=== PATIENT | male | born 1950 | race Caucasian/White ===

== ENCOUNTER → 2020-01-14 | Outpatient (CLI) | payer MEDICARE ==
[2019-03-04 15:00] VITALS: BP 150/72
[~2020-01-14] MED LIST: AMLO5TAB10 PO; ATOR10TA60 PO; CLOP75TA PO; CONTRAST GIVEN. MC PRN; IOHEXOL 300 MG/ML 100ML VIAL. IV ONE; LOSA-73 PO; Nicotine 21MG TD
[2020-01-14 13:00] LABS: CALCIUM 8.8 mg/dL (8.5-10.1); GFR 74.3; POTASSIUM 5.1 mmol/L (3.5-5.1)
--- NOTE | 2020-01-14 16:48 | RAD ---
EXAM: 1. CTA HEAD WITH AND WITHOUT CONTRAST. 2. CTA NECK WITH AND WITHOUT CONTRAST. HISTORY: Carotid and subclavian stenosis. TECHNIQUE: Computed tomographic angiography of the head and neck was performed before and after the intravenous administration of 75 mL Omnipaque 300. Three-dimensional reconstructions were also performed. One or more of the following individualized dose reduction techniques were utilized for this examination: 1. Automated exposure control. 2. Adjustment of the mA and/or kV according to patient size. 3. Use of iterative reconstruction technique. COMPARISON: 03/03/2019. FINDINGS: Angiographic findings: The aortic arch has a typical branching pattern. There are moderate atherosclerotic calcifications. Stenosis of the left subclavian artery just proximal to the left vertebral origin appears slightly less severe and is approximately 60%. There is a 50% stenosis at the origin of the left common carotid artery. There is <50% stenosis at the origin of the brachiocephalic artery. More distally, there is moderate calcified and uncalcified plaquing at both carotid bulbs resulting in <50% stenosis bilaterally. This extends to a 50% stenosis of the left proximal cervical internal carotid artery. There is no cervical internal carotid artery stenosis more distally. The external carotid systems are patent. There is a moderate stenosis at the origin of the left vertebral artery which is dominant. There is multifocal mild stenosis of the right vertebral artery which is relatively small, and diminutive beyond the origin of the posterior inferior cerebellar artery. There is a variant early origin of the left posterior inferior cerebellar artery lateral to the foramen magnum. A 1 mm infundibulum is noted along the posterior aspect of the right vertebral artery at the foramen magnum. The basilar artery is patent. There is a persistent origin of the left posterior cerebral artery. There are moderate stenoses along both P2 segments. The right posterior communicating artery is visualized. Both superior cerebellar arteries are visualized with multifocal stenoses. There are moderate atherosclerotic calcifications along both cavernous internal carotid arteries without clear stenosis. There are limitations from venous contamination in the cavernous sinuses, but a small aneurysm is suspected along the lateral aspect of the left cavernous sinus internal carotid artery measuring 2 mm. There is no clear interval change. The middle cerebral arteries are patent. The anterior cerebral arteries are patent. The anterior communicating artery is visualized. Nonangiographic findings: There is no intracranial hemorrhage. There is a chronic infarct superiorly in the left cerebellar hemisphere. There is mild chronic microangiopathic white matter change elsewhere. The ventricles are normal in size and position. The paranasal sinuses appear clear. There are changes of bilateral cataract surgery. The temporal bones are unremarkable. Bone windows reveal no suspicious lesions. The lung apices demonstrate mild to moderate centrilobular and paraseptal emphysema. The parotid glands and submandibular glands are unremarkable. The thyroid gland demonstrates no suspicious lesions. There are no laryngeal or pharyngeal masses. There are no pathologically enlarged lymph nodes. IMPRESSION: 1. The left subclavian stenosis appears slightly decreased in severity, now measuring approximately 60%. 2. 50% stenosis at the origin of the left common carotid artery. 3. 50% stenosis at the origin of the left cervical internal carotid artery. 4. Moderate stenosis at the origin of the dominant left vertebral artery. The right vertebral artery is relatively small and diminutive beyond the origin of the posterior inferior cerebellar artery. 5. 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 Attention on further follow-up. 6. Moderate stenoses of both P2 segments and superior cerebellar arteries. Chronic left superior cerebellar infarct. 7. Moderate mild to moderate centrilobular and paraseptal emphysema in the apices. PQRS Compliance Statement - Stenosis calculations for CT, MR and conventional angiography are based upon measurement of the distal ICA diameter in accordance with the NASCET methodology. Stenosis calculations for carotid ultrasound studies are derived from validated velocity criteria which are known to correlate with the NASCET methodology. Electronically signed by: Camilla Dial MD (01/14/2020 4:45 PM) [id number]
== END | disposition home or self-care (01) ==
LOC: CT 11:19
PROVIDERS: ATTEND Internal Medicine Cardiovascular Disease
DX: I65.22 Occlusion and stenosis of left carotid artery (principal); I70.1 Atherosclerosis of renal artery; I72.0 Aneurysm of carotid artery; I66.3 Occlusion and stenosis of cerebellar arteries; J43.2 Centrilobular emphysema; I63.89 Other cerebral infarction; I70.0 Atherosclerosis of aorta; I70.8 Atherosclerosis of other arteries; I65.01 Occlusion and stenosis of right vertebral artery
CPT/HCPCS: 36415; 70496; 70498; 80048; Q9967

== ENCOUNTER 2020-12-07 11:58 | Inpatient (IN) | payer MEDICARE ==
[~2020-12-07] VITALS: Ht 175.3 cm; Wt 62.1 kg
[~2020-12-07 11:58] MED LIST changes: +AMLO-186 PO; -AMLO5TAB10 PO; -CONTRAST GIVEN. MC PRN; -IOHEXOL 300 MG/ML 100ML VIAL. IV ONE
[2020-12-07] MEDS ORDERED: MORPHINE SULFATE 4 MG/ML VIAL. IV/SQ PRN (12:30)
[2020-12-07] MEDS ORDERED: ASPIRIN 325 MG TABLET PO ONE (12:30)
--- NOTE | 2020-12-07 12:58 | RAD ---
AP chest. HISTORY: Chest pain short of breath AP view was taken of the chest. There is a rounded density on the right which is concerning for a mas s although a rounded infiltrate is possible. There is a left perihilar density also concerning for a mass. CT recommended. There are infiltrates or atelectasis in the left upper lobe which could be post obstructive. There is mild elevation of left diaphragm. IMPRESSION: 1. Left hilar mass with left upper lobe atelectasis or infiltrate. 2. Rounded density right lung possible mass. CT recommended. Electronically signed by: Nick Walls MD (12/07/2020 12:55 PM) [id number]
--- NOTE | 2020-12-07 13:22 | PHYS DOC ---
Past Medical History Past Medical History: Alcoholism, Hypertension, Other Additional Past Medical Histor: CIRRHOSIS,"CLOGGED ARTERIES" (RADHA JASSO POST ACUTE CARE NURSE) Past Surgical History: Other Additional Past Surgical Histo: L HAND (RADHA JASSO [place] POST ACUTE CARE NURSE) Smoking Status: Current Every Day Smoker Alcohol Use: Occasionally Drug Use: None (RADHA JASSO POST ACUTE CARE NURSE) General Adult EDM: Chief Complaint: CHEST PAIN HPI: HPI: Patient is a 70 year old male with history of alcoholism liver cirrhosis, hy pertension, current smoker, who presents today complaining of shortness of breath and chest pain that began 2 weeks ago after receiving his second Covid vaccine, last covid vaccine was 10/31/2020. Patient is a very vague about his symptoms. He is unable to rate or describe his chest pain. He states his concerning symptom is the shortness of breath. Denies any fever, coughing or nasal congestion. He states he thought he should be checked out to make sure that the Covid vaccine is not the source of his symptoms. (RADHA JASSO POST ACUTE CARE NURSE) Review of Systems: Review of Systems: Constitutional: Denies fever or chills. [] Eyes: Denies change in visual acuity. [] HENT: Denies nasal congestion or sore throat. [] Respiratory: Reports shortness of breath, denies cough Cardiovascular: Reports chest pain GI: Denies abdominal pain, nausea, vomiting, bloody stools or diarrhea. [] : Denies dysuria. [] Musculoskeletal: Denies back pain or joint pain. [] Integument: Denies rash. [] Neurologic: Denies headache, focal weakness or sensory changes. [] Psychiatric: Denies depression or anxiety. [] (RADHA JASSO [place] POST ACUTE CARE NURSE) Heart Score: C/O Chest Pain: Yes HEART Score for Chest Pain: HEART Score for Chest Pain Response (Comments) Value History Slighlty/Non-Suspicious 0 ECG Normal 0 Age > 65 2 Risk Factors 1 or 2 Risk Factors 1 Troponin < Normal Limit 0 Total 3 Risk Factors: Risk Factors: DM, Current or recent (<one month) smoker, HTN, HLP, family history of CAD, obesity. Risk Scores: Score 0 - 3: 2.5% MACE over next 6 weeks - Discharge Home Score 4 - 6: 20.3% MACE over next 6 weeks - Admit for Clinical Observation Score 7 - 10: 72.7% MACE over next 6 weeks - Early Invasive Strategies (RADHA JASSO POST ACUTE CARE NURSE) Current Medications: Current Medications Medications (Trade) Dose Ordered Sig/Arun Start Time Stop Time Status Last Admin Dose Admin Aspirin (Jannie Aspirin) 325 mg 1X ONCE 12/07/20 12:30 12/07/20 12:43 DC Morphine Sulfate (Morphine Sulfate) 4 mg PRN Q15MIN PRN 12/07/20 12:30 12/08/20 12:29 (RADHA JASSO POST ACUTE CARE NURSE) Allergies: Allergies: Allergies Coded Allergies Type Severity Reaction Last Updated Verified No Known Drug Allergies 03/02/19 No (RADHA JASSO POST ACUTE CARE NURSE) Physical Exam: PE: Constitutional: Well developed, well nourished, no acute distress, non-toxic appearance. [] HENT: Normocephalic, atraumatic, bilateral external ears normal, oropharynx moist, no oral exudates, nose normal. [] Eyes: PERRLA, EOMI, conjunctiva normal, no discharge. [] Neck: Normal range of motion, no tenderness, supple, no stridor. [] Cardiovascular:Heart rate regular rhythm, no murmur [] Lungs & Thorax: Diminished breath sounds Abdomen: Bowel sounds normal, soft, no tenderness, no masses, no pulsatile masses. [] Skin: Warm, dry, no erythema, no rash. [] Back: No tenderness, no CVA tenderness. [] Extremities: No tenderness, no cyanosis, no clubbing, ROM intact, no edema. [] Neurologic: Alert and oriented X 3, normal motor function, normal sensory function, no focal deficits noted. [] Psychologic: Flat affect (RADHA JASSO POST ACUTE CARE NURSE) EKG: EK interpreted by Dr. Aquino sinus rhythm heart rate 58 no STEMI (RADHA JASSO POST ACUTE CARE NURSE) Radiology/Procedures: Radiology/Procedures: []PROCEDURE: CT CHEST WO CONTRAST CT of the chest without contrast: Clinical History: Reason: chest pain, soa, mass on xray / Spl. Instructions: / History: . Axial helical images of the chest were obtained without contrast. FINDINGS: There is a round 6 spiculated mass in the right lower lobe that measures 3.4 x 2.8 cm. There is a 9 mm solid nodule lateral to the inferior margin of this mass . There is a 9 mm nodule in the right upper lobe. There is a calcified granuloma in the right middle lobe. There is patchy opacity left upper lobe and collapse of much the left upper lobe with soft tissue opacity above the left hilum. There is a mild left effusion. There is multiple small and borderline size lymph nodes in the mediastinum. There is coronary artery calcifications. The thoracic aorta has normal caliber. Impression: 1. Collapse of much left upper lobe likely due to a perihilar mass and postobstructive atelectasis. There is also additional patchy opacity in the left upper lobe which could be lymphangitic spread of cancer. 2. Multiple discrete pulmonary nodules the largest is in the right lower lobe. This could be primary or metastatic cancer. 3. Mild left effusion likely a malignant effusion. End impression PQRS Compliance Statement: One or more of the following individualized dose reduction techniques were utilized for this examination: 1. Automated exposure control 2. Adjustment of the mA and/or kV according to patient size 3. Use of iterative reconstruction technique Electronically signed by: Ozzie Saez III, MD (12/07/2020 2:20 PM) [facility] DICTATED and SIGNED BY: OZZIE SAEZ III, MD DATE: 12/07/20 [id number] PROCEDURE: PORTABLE CHEST 1V AP chest. HISTORY: Chest pain short of breath AP view was taken of the chest. There is a rounded density on the right which is concerning for a mass although a rounded infiltrate is possible. There is a left perihilar density also concerning for a mass. CT recommended. There are infiltrates or atelectasis in the left upper lobe which could be postobstructive. There is mild elevation of left diaphragm. IMPRESSION: 1. Left hilar mass with left upper lobe atelectasis or infiltrate. 2. Rounded density right lung possible mass. CT recommended. Electronically signed by: Nick Walls MD (12/07/2020 12:55 PM) [id number] DICTATED and SIGNED BY: NICK WALLS MD DATE: 12/07/20 [id number] 0 (RADHA JASSO POST ACUTE CARE NURSE) Course & Med Decision Making: Course & Med Decision Making Pertinent Labs and Imaging studies reviewed. (See chart for details) This is a 70-year-old male patient presenting to the ED today complaining of chest pain or shortness of breath that began 2 weeks ago after receiving COVID- 19 second vaccine. Patient is a very poor historian, very vague. He is a current smoker. Encouraged to consider smoking cessation. Vitals on arrival to the ED temperature 97.4, heart rate 60, respiration 20, blood pressure 120/60, O2 sats 98% on room air CBC with a WBC of 11.1, CMP with sodium of 130, troponin is normal. Chest x-ray was noted for lung mass with recommendation for CT of the chest CT of the chest with no contrast was noted for left upper lobe mass with patchy opacity in the left upper lobe which could be lymphangitic spread of cancer. Multiple discrete pulmonary nodules the largest is in the right lower lobe. This could be primary or metastatic cancer. Mild left effusion likely a malignant effusion. Spoke with Dr. Cullen who accepted patient for admission. Pulmonary consult will be placed (RADHA JASSO APRN) Dragon Disclaimer: Dragon Disclaimer: This electronic medical record was generated, in whole or in part, using a voice recognition dictation system. (RADHA JASSO APRN) Departure Departure Impression: Primary Impression: Chest pain Qualified Codes: R07.9 - Chest pain, unspecified Additional Impressions: Mass of left lung Shortness of breath Disposition: ADMITTED INPT THIS HOSP Condition: STABLE Referrals: UNKNOWN PCP NAME (PCP) Attending Signature Attending Signature I have reviewed the PA/CUSTOMER SOLUTIONS COORDINATOR's note and plan of care. I was available for consultation as needed during the patient's visit in the emergency department. I agree with the clinical impression, plan, and disposition. (IAM AQUINO DO) RADHA JASSO APRN Dec 07, 2020 13:22 IAM AQUINO DO Dec 08, 2020 15:29
[2020-12-07 13:58] LABS: BASO # 0.1 x10^3/uL (0.0-0.2); BASO % 1 % (0-3); EOS # 0.1 x10^3/uL (0.0-0.7); EOS % 1 % (0-3); HEMATOCRIT 40.6 % (39.0-53.0); HEMOGLOBIN 13.6 g/dL (13.0-17.5); LYMPH # 1.1 x10^3/uL (1.0-4.8); LYMPH % 10 % (24-48); MEAN CORPUSCULAR HEMOGLOBIN 32 pg (25-35); MEAN CORPUSCULAR HGB CONC 34 g/dL (31-37); MEAN CORPUSCULAR VOLUME 95 fL (79-100); MONO % 9 % (0-9); NEUT # 8.8 x10^3/uL (1.8-7.7); NEUT % 80 % (31-73); PLATELET COUNT 375 x10^3/uL (140-400); RED BLOOD COUNT 4.28 x10^6/uL (4.30-5.70); RED CELL DISTRIBUTION WIDTH 13.3 % (11.5-14.5); WHITE BLOOD COUNT 11.1 x10^3/uL (4.0-11.0)
[2020-12-07 14:07] LABS: CALCIUM 8.8 mg/dL (8.5-10.1); CREATININE 0.9 mg/dL (0.7-1.3); GFR 83.7; POTASSIUM 4.8 mmol/L (3.5-5.1)
[2020-12-07 14:12] LABS: ALBUMIN 3.3 g/dL (3.4-5.0); ALBUMIN/GLOBULIN RATIO 0.8 (1.0-1.7); MAGNESIUM 2.3 mg/dL (1.8-2.4); TOTAL BILIRUBIN 0.5 mg/dL (0.2-1.0); TOTAL PROTEIN 7.5 g/dL (6.4-8.2)
--- NOTE | 2020-12-07 14:23 | RAD ---
CT of the chest without contrast: Clinical History: Reason: chest pain, soa, mass on xray / Spl. Instructions: / History: . Axial helical images of the chest were obtained without contrast. FINDINGS: There is a round 6 spiculated mass in the right lower lobe that measures 3.4 x 2.8 cm. There is a 9 m m solid nodule lateral to the inferior margin of this mass. There is a 9 mm nodule in the right upper lobe. There is a calcified granuloma in the right middle lobe. There is patchy opacity left upper lobe and collapse of much the left upper lobe with soft tissue opa [place] above the left hilum. There is a mild left effusion. There is multiple small and borderline size lymph nodes in the mediastinum. There is coronary artery calcifications. The thoracic aorta has normal caliber. Impression: 1. Collapse of much left upper lobe likely due to a perihilar mass and postobstructive atelectasis. T here is also additional patchy opacity in the left upper lobe which could be lymphangitic spread of c ancer. 2. Multiple discrete pulmonary nodules the largest is in the right lower lobe. This could be primary or metastatic cancer. 3. Mild left effusion likely a malignant effusion. End impression PQRS Compliance Statement: One or more of the following individualized dose reduction techniques were utilized for this examinat ion: 1. Automated exposure control 2. Adjustment of the mA and/or kV according to patient size 3. Use of iterative reconstruction technique Electronically signed by: Pee Hallman III, MD (12/07/2020 2:20 PM) [facility]
[2020-12-07] MEDS ORDERED: ONDANSETRON PF 4 MG/2 ML VIAL. IV PRN ×2 (16:30→17:30)
[2020-12-07] MEDS ORDERED: IV NORMAL SALINE 1000ML BAG 1,000 ML IV SCH (16:30)
[2020-12-07] MEDS ORDERED: ACETAMINOPHEN 650 MG SUPP.RECT. PR PRN (16:30)
[2020-12-07] MEDS ORDERED: ACETAMINOPHEN 325 MG TABLET. PO PRN (16:30)
--- NOTE | 2020-12-07 16:33 | PDOC1 ---
History and Physical Date of Admission Date of Admission DATE: 12/07/20 TIME: 16:26 Identification/Chief Complaint Chief Complaint Shortness of breath Source Source: Caregiver, Patient History of Present Illness History of Present Illness Mr Alex is a 70 yo M w/ PMHx HTN, ETOH abuse, Tobacco abuse, carotid arterial disease, CAD, Cirrhosis of liver who presented with c/o progressive shortness of breath since 10/31/2020. He feels this is due to his COVID 19 vaccine. His son notes has been progressive and he has had a dry cough for the last few days and suddenly became more short of breath yesterday. He has some chest pain that only comes after his cough and is in bilateral shoulders worse on the left. He does note more nasal discharge and intermittent epistaxis lately. On review, last chest radiograph was 2018, no mass noted at that time. Chest radiograph now shows left upper lobe mass and likely pneumonia. Labs with WBC 11.1, Hb 13.6, platelets 375, NA 130, K4.8, BUN 9, CR 0.9, glucose 85, BNP 178, troponin 0, albumin 3.3 CT chest with partial left upper lobe collapse and concern for possible lymphangitic spread, a round 6 spiculated mass in the right lower lobe that measures 3.4 x 2.8 cm. There is a 9 mm solid nodule lateral to the inferior margin of this mass. There is a 9 mm nodule in the right upper lobe. EKG sinus rhythm heart rate 58 no STEMI Admitted for further care. Past Medical History Cardiovascular: CAD CENTRAL NERVOUS SYSTEM: CVA, Periperal neuropathy Past Surgical History Past Surgical History: Other (Left hand surgery) Family History Family History: Coronary Artery Disease, High Cholestrol, Hypertension Social History Smoke: 1 pack per day ALCOHOL: heavy Drugs: None Current Medications Current Medications Current Medications Aspirin (Jannie Aspirin) 325 mg 1X ONCE PO Last administered on 12/07/20at 14:13; Start 12/07/20 at 12:30; Stop 12/07/20 at 12:43; Status DC Morphine Sulfate (Morphine Sulfate) 4 mg PRN Q15MIN PRN IV/SQ PAIN GREATER THAN 3/10 Last administered on 12/07/20at 14:14; Start 12/07/20 at 12:30; Stop 12/08/20 at 12:29 Active Scripts Active Cozaar (Losartan Potassium) 50 Mg Tablet 100 Mg PO DAILY 30 Days Can sub with #30 of 100mg tabs Amlodipine Besylate 5 Mg Tablet 5 Mg PO DAILY 30 Days Atorvastatin Calcium 10 Mg Tablet 10 Mg PO QHS 30 Days [Nicotine 21MG] 1 PATCH Patch 1 Patch TD DAILY 30 Days Clopidogrel (Clopidogrel Bisulfate) 75 Mg Tablet 75 Mg PO [id number] 30 Days Allergies Allergies: Coded Allergies: No Known Drug Allergies (Unverified , 03/02/19) ROS General: YES: Fatigue, Malaise, Appetite; No: Chills, Night Sweats, Other PSYCHOLOGICAL ROS: YES: Disorientation, Memory difficulties; No: Anxiety, Behavioral Disorder, Concentration difficultie, Decreased libido, Depression, Hallucinations, Hostility, Irritablity, Mood Swings, Obsessive thoughts, Physical abuse, Sexual abuse, Sleep disturbances, Suicidal ideation, Other Eyes: No Blurry vision, No Decreased vision, No Double vision, No Dry eyes, No Excessive tearing, No Eye Pain, No Itchy Eyes, No Loss of vision, No Photophobia, No Scotomata, No Uses contacts, No Uses glasses, No Other HEENT: No: Heacaches, Visual Changes, Hearing change, Nasal congestion, Nasal discharge, Oral lesions, Sinus pain, Sore Throat, Epistaxis, Sneezing, Snoring, Tinnitus, Vertigo, Vocal changes, Other ALLERGY AND IMMUNOLOGY: YES: Nasal Congestion, Post Nasal Drip; No: Hives, Insect Bite Sensitivity, Itchy/Watery Eyes, Seasonal Allergies, Other Hematological and Lymphatic: No: Bleeding Problems, Blood Clots, Blood Transfusions, Brusing, Night Sweats, Pallor, Swollen Lymph Nodes, Other ENDOCRINE: No: Breast Changes, Galactorrhea, Hair Pattern Changes, Hot Flashes, Malaise/lethargy, Mood Swings, Palpitations, Polydipsia/polyuria, Skin Changes, Temperature Intolerance, Unexpected Weight Changes, Other Breast: No New/Changing Breast Lumps, No Nipple changes, No Nipple discharge, No Other Respiratory: YES: Cough, Shortness of breath, SOB with excertion, Tachypnea; No: Hemoptysis, Orthopnea, Pleuritic Pain, Sputum Changes, Stridor, Wheezing, Other Cardiovascular: yes Chest Pain; No Palpitations, No Orthopnea, No Paroxysmal Noc. Dyspnea, No Edema, No Lt Headedness, No Other Gastrointestinal: Yes Nausea; No Vomiting, No Abdominal Pain, No Diarrhea, No Constipation, No Melena, No Hematochezia, No Other Genitourinary: No Dysuria, No Frequency, No Incontinence, No Hematuria, No Retention, No Discharge, No Urgency, No Pain, No Flank Pain, No Other, No , No , No , No , No , No , No Musculoskeletal: No Gait Disturbance, No Joint Pain, No Joint Stiffness, No Joint Swelling, No Muscle Pain, No Muscular Weakness, No Pain In:, No Swelling In:, No Other Neurological: No Behavorial Changes, No Bowel/Bladder ControlChng, No Confusion, No Dizziness, No Gait Disturbance, No Headaches, No Impaired Coord/balance, No Memory Loss, No Numbness/Tingling, No Seizures, No Speech Problems, No Tremors, No Visual Changes, No Weakness, No Other Skin: No Dry Skin, No Eczema, No Hair Changes, No Lumps, No Mole Changes, No Mottling, No Nail Changes, No Pruritus, No Rash, No Skin Lesion Changes, No Other, No Acne Physical Exam General: Alert, Oriented X3, Cooperative, moderate distress HEENT: Atraumatic, PERRLA, EOMI, Mucous membr. moist/pink Lungs: Other (Bilateral wheezes, crackles and decreased left sided breath so unds) Heart: S1S2, RRR, no thrills, no rubs, no gallops, no murmurs Abdomen: Normal bowel sounds, Soft, No tenderness, No hepatosplenomegaly, No masses Rectal Exam: not examined Extremities: No clubbing, No cyanosis, No edema, Normal pulses, No tenderness/swelling Skin: No rashes, No breakdown, No significant lesion Neuro: Normal gait, Normal speech, Strength at 5/5 X4 ext, Normal tone, Sensation intact, Cranial nerves 3-12 NL, Reflexes 2+ Psych/Mental Status: Mental status NL, Mood NL Vitals Vitals Vital Signs Date Time Temp Pulse Resp B/P (MAP) Pulse Ox O2 Delivery O2 Flow Rate FiO2 12/07/20 12:04 97.4 60 20 120/60 (80) 98 Room Air 97.4 Labs Labs Laboratory Tests Test 12/07/20 13:45 White Blood Count 11.1 x10^3/uL (4.0-11.0) Red Blood Count 4.28 x10^6/uL (4.30-5.70) Hemoglobin 13.6 g/dL (13.0-17.5) Hematocrit 40.6 % (39.0-53.0) Mean Corpuscular Volume 95 fL (79-100) Mean Corpuscular Hemoglobin 32 pg (25-35) Mean Corpuscular Hemoglobin Concent 34 g/dL (31-37) Red Cell Distribution Width 13.3 % (11.5-14.5) Platelet Count 375 x10^3/uL (140-400) Neutrophils (%) (Auto) 80 % (31-73) Lymphocytes (%) (Auto) 10 % (24-48) Monocytes (%) (Auto) 9 % (0-9) Eosinophils (%) (Auto) 1 % (0-3) Basophils (%) (Auto) 1 % (0-3) Neutrophils # (Auto) 8.8 x10^3/uL (1.8-7.7) Lymphocytes # (Auto) 1.1 x10^3/uL (1.0-4.8) Monocytes # (Auto) 1.0 x10^3/uL (0.0-1.1) Eosinophils # (Auto) 0.1 x10^3/uL (0.0-0.7) Basophils # (Auto) 0.1 x10^3/uL (0.0-0.2) Sodium Level 130 mmol/L (136-145) Potassium Level 4.8 mmol/L (3.5-5.1) Chloride Level 95 mmol/L (98-107) Carbon Dioxide Level 26 mmol/L (21-32) Anion Gap 9 (6-14) Blood Urea Nitrogen 9 mg/dL (8-26) Creatinine 0.9 mg/dL (0.7-1.3) Estimated GFR (Cockcroft-Gault) 83.7 BUN/Creatinine Ratio 10 (6-20) Glucose Level 85 mg/dL (70-99) Calcium Level 8.8 mg/dL (8.5-10.1) Magnesium Level 2.3 mg/dL (1.8-2.4) Total Bilirubin 0.5 mg/dL (0.2-1.0) Aspartate Amino Transf (AST/SGOT) 21 U/L (15-37) Alanine Aminotransferase (ALT/SGPT) 20 U/L (16-63) Alkaline Phosphatase 79 U/L (46-116) Troponin I Quantitative < 0.017 ng/mL (0.000-0.055) VE-Kon-E-Type Natriuretic Peptide 178 pg/mL (0-124) Total Protein 7.5 g/dL (6.4-8.2) Albumin 3.3 g/dL (3.4-5.0) Albumin/Globulin Ratio 0.8 (1.0-1.7) Laboratory Tests Test 12/07/20 13:45 White Blood Count 11.1 x10^3/uL (4.0-11.0) Red Blood Count 4.28 x10^6/uL (4.30-5.70) Hemoglobin 13.6 g/dL (13.0-17.5) Hematocrit 40.6 % (39.0-53.0) Mean Corpuscular Volume 95 fL (79-100) Mean Corpuscular Hemoglobin 32 pg (25-35) Mean Corpuscular Hemoglobin Concent 34 g/dL (31-37) Red Cell Distribution Width 13.3 % (11.5-14.5) Platelet Count 375 x10^3/uL (140-400) Neutrophils (%) (Auto) 80 % (31-73) Lymphocytes (%) (Auto) 10 % (24-48) Monocytes (%) (Auto) 9 % (0-9) Eosinophils (%) (Auto) 1 % (0-3) Basophils (%) (Auto) 1 % (0-3) Neutrophils # (Auto) 8.8 x10^3/uL (1.8-7.7) Lymphocytes # (Auto) 1.1 x10^3/uL (1.0-4.8) Monocytes # (Auto) 1.0 x10^3/uL (0.0-1.1) Eosinophils # (Auto) 0.1 x10^3/uL (0.0-0.7) Basophils # (Auto) 0.1 x10^3/uL (0.0-0.2) Sodium Level 130 mmol/L (136-145) Potassium Level 4.8 mmol/L (3.5-5.1) Chloride Level 95 mmol/L (98-107) Carbon Dioxide Level 26 mmol/L (21-32) Anion Gap 9 (6-14) Blood Urea Nitrogen 9 mg/dL (8-26) Creatinine 0.9 mg/dL (0.7-1.3) Estimated GFR (Cockcroft-Gault) 83.7 BUN/Creatinine Ratio 10 (6-20) Glucose Level 85 mg/dL (70-99) Calcium Level 8.8 mg/dL (8.5-10.1) Magnesium Level 2.3 mg/dL (1.8-2.4) Total Bilirubin 0.5 mg/dL (0.2-1.0) Aspartate Amino Transf (AST/SGOT) 21 U/L (15-37) Alanine Aminotransferase (ALT/SGPT) 20 U/L (16-63) Alkaline Phosphatase 79 U/L (46-116) Troponin I Quantitative < 0.017 ng/mL (0.000-0.055) VE-Ohw-R-Type Natriuretic Peptide 178 pg/mL (0-124) Total Protein 7.5 g/dL (6.4-8.2) Albumin 3.3 g/dL (3.4-5.0) Albumin/Globulin Ratio 0.8 (1.0-1.7) Images Images Chest Radiograph: AP view was taken of the chest. There is a rounded density on the right which is concerning for a mass although a rounded infiltrate is possible. There is a left perihilar density also concerning for a mass. CT recommended. There are infiltrates or atelectasis in the left upper lobe which could be postobstructive. There is mild elevation of left diaphragm. IMPRESSION: 1. Left hilar mass with left upper lobe atelectasis or infiltrate. 2. Rounded density right lung possible mass. CT recommended. CT Chest: There is a round 6 spiculated mass in the right lower lobe that measures 3.4 x 2.8 cm. There is a 9 mm solid nodule lateral to the inferior margin of this mass. There is a 9 mm nodule in the right upper lobe. There is a calcified granuloma in the right middle lobe. There is patchy opacity left upper lobe and collapse of much the left upper lobe with soft tissue opacity above the left hilum. There is a mild left effusion. There is multiple small and borderline size lymph nodes in the mediastinum. There is coronary artery calcifications. The thoracic aorta has normal caliber. Impression: 1. Collapse of much left upper lobe likely due to a perihilar mass and postobstructive atelectasis. There is also additional patchy opacity in the left upper lobe which could be lymphangitic spread of cancer. 2. Multiple discrete pulmonary nodules the largest is in the right lower lobe. This could be primary or metastatic cancer. 3. Mild left effusion likely a malignant effusion. VTE Prophylaxis Ordered VTE Prophylaxis Devices: No VTE Pharmacological Prophylaxi: No Assessment/Plan Assessment/Plan A/P: Shortness of breath - due to obstructive pulmonary mass, likely undiagnosed COPD exacerbation and likely atypical pneumonia Left lung upper lobe pneumonia - likely gram negative given post-obstructive nature, will cover with rocephin and doxycycline. Lung mass - left upper lobe - with possible lymphangitic spread. Will consult pulm to consider bronchoscopy vs IR biopsy of mass. 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 Son was bedside for history. He is on statin and antiplatelet. Will hold plavix/ASA for possible procedure Tobacco abuse - about to start chantix outpatient. Nicotine patch while inpatient. 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 Check mag level FEN - Cardiac diet, npo after midnight PPX - SCDs, pepcid FULL CODE Dispo - inpatient for above. Surrogate decision maker is son, who was present bedside for the plan Justifications for Admission Other Justification VINCENT JASMINE MD Dec 07, 2020 16:33
[2020-12-07 17:02] LABS: PROTHROMBIN TIME PATIENT 13.2 SEC (11.7-14.0)
[2020-12-07] MEDS ORDERED: ALBUTEROL SULFATE 2.5 MG/3 ML NEBU. NEB PRN (17:30)
[2020-12-07] MEDS ORDERED: MORPHINE SULFATE 4 MG/ML VIAL. IV PRN (17:30)
[2020-12-07] MEDS: DOXYCYCLINE HYCLATE 100 MG in IV DEXTROSE 5% 100ML 100 ML IV SCH (20:36)
[2020-12-07 21:00] VITALS: BP 142/65
[2020-12-07] MEDS: THIAMINE 100 MG TABLET. PO SCH (21:28)
[2020-12-07] MEDS: FOLIC ACID 1 MG TABLET. PO SCH (21:28)
[2020-12-07] MEDS: FAMOTIDINE 20 MG TABLET. PO SCH (21:28)
[2020-12-07] MEDS: ATORVASTATIN CALCIUM 10 MG TABLET. PO SCH (21:29)
[2020-12-07] MEDS: NICOTINE 21MG PATCH. TD SCH (21:56)
[2020-12-07] MEDS: cefTRIAXone IV Push 1 GM VIAL. IVP SCH (21:56)
[2020-12-07] MEDS: IPRATRPIUM/ALBUTEROL 0.5/2.5MG 3 ML NEBU. NEB SCH (22:00)
[2020-12-07] MEDS: BUDESONIDE 0.5 MG/2 ML NEBU. NEB SCH (22:00)
[2020-12-07 22:44] VITALS: BP 119/57
[2020-12-08] MEDS ORDERED: OLME20TA17 PO (01:04)
[2020-12-08 03:11] VITALS: BP 108/57
[2020-12-08 05:52] LABS: CALCIUM 8.2 mg/dL (8.5-10.1); CREATININE 0.8 mg/dL (0.7-1.3); GFR 95.8; POTASSIUM 3.9 mmol/L (3.5-5.1)
[2020-12-08] MEDS: BUDESONIDE 0.5 MG/2 ML NEBU. NEB SCH ×2 (07:35→20:18)
[2020-12-08] MEDS: IPRATRPIUM/ALBUTEROL 0.5/2.5MG 3 ML NEBU. NEB SCH ×4 (07:35→20:18)
[2020-12-08 07:50] VITALS: BP 112/57
[2020-12-08] MEDS: NICOTINE 21MG PATCH. TD SCH (08:38)
[2020-12-08] MEDS: THIAMINE 100 MG TABLET. PO SCH (08:38)
[2020-12-08] MEDS: amLODIPine BESYLATE 5 MG TABLET PO SCH (08:39)
[2020-12-08] MEDS: LOSARTAN POTASSIUM 50 MG TABLET. PO SCH (08:39)
[2020-12-08] MEDS: FOLIC ACID 1 MG TABLET. PO SCH (08:39)
[2020-12-08] MEDS: DOXYCYCLINE HYCLATE 100 MG in IV DEXTROSE 5% 100ML 100 ML IV SCH ×2 (08:42→20:07)
--- NOTE | 2020-12-08 08:44 | PDOC ---
PROGRESS NOTES Date of Service: DATE: 12/08/20 TIME: 08:43 Chief Complaint Chief Complaint Images Images Chest Radiograph: AP view was taken of the chest. There is a rounded density on the right which is concerning for a mass although a rounded infiltrate is possible. There is a left perihilar density also concerning for a mass. CT recommended. There are infiltrates or atelectasis in the left upper lobe which could be postobstructive. There is mild elevation of left diaphragm. IMPRESSION: 1. Left hilar mass with left upper lobe atelectasis or infiltrate. 2. Rounded density right lung possible mass. CT recommended. CT Chest: There is a round 6 spiculated mass in the right lower lobe that measures 3.4 x 2.8 cm. There is a 9 mm solid nodule lateral to the inferior margin of this mass. There is a 9 mm nodule in the right upper lobe. There is a calcified granuloma in the right middle lobe. There is patchy opacity left upper lobe and collapse of much the left upper lobe with soft tissue opacity above the left hilum. There is a mild left effusion. There is multiple small and borderline size lymph nodes in the mediastinum. There is coronary artery calcifications. The thoracic aorta has normal caliber. Impression: 1. Collapse of much left upper lobe likely due to a perihilar mass and postobstructive atelectasis. There is also additional patchy opacity in the left upper lobe which could be lymphangitic spread of cancer. 2. Multiple discrete pulmonary nodules the largest is in the right lower lobe. This could be primary or metastatic cancer. 3. Mild left effusion likely a malignant effusion. VTE Prophylaxis Ordered VTE Prophylaxis Devices: No VTE Pharmacological Prophylaxi: No impression Assessment/Plan A/P: Shortness of breath - due to obstructive pulmonary mass, likely undiagnosed COPD exacerbation and likely atypical pneumonia Left lung upper lobe pneumonia - likely gram negative given post-obstructive nature, will cover with rocephin and doxycycline. Lung mass - left upper lobe - with possible lymphangitic spread. Will consult pulm to consider bronchoscopy vs IR biopsy of mass. 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 Son was bedside for history. He is on statin and antiplatelet. Will hold plavix/ASA for possible procedure Tobacco abuse - about to start chantix outpatient. Nicotine patch while inpatient. 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 Check mag level Collapse of much left upper lobe likely due to a perihilar mass and postobstructive atelectasis. There is also additional patchy opacity in the left upper lobe which could be lymphangitic spread of cancer. Multiple discrete pulmonary nodules the largest is in the right lower lobe. This could be primary or metastatic cancer. Cirrhosis of liver who presented with c/o progressive shortness of breath since 10/31/2020. He feels this is due to his COVID 19 vaccine. His son notes has been progressive and he has had a dry cough for the last few days and suddenly became more short of breath FEN - Cardiac diet, npo after midnight PPX - SCDs, pepcid FULL CODE Dispo - inpatient for above. Surrogate decision maker is son, who was present bedside for the plan d/w rn bronchoscopy 12-09 Justifications for Admission Justifications for Admission Other Justification History of Present Illness History of Present Illness Identification/Chief Complaint Chief Complaint Shortness of breath Source Source: Caregiver, Patient History of Present Illness History of Present Illness Mr Alex is a 70 yo M w/ PMHx HTN, ETOH abuse, Tobacco abuse, carotid arterial disease, CAD, Cirrhosis of liver who presented with c/o progressive shortness of breath since 10/31/2020. He feels this is due to his COVID 19 vaccine. His son notes has been progressive and he has had a dry cough for the last few days and suddenly became more short of breath yesterday. He has some chest pain that only comes after his cough and is in bilateral shoulders worse on the left. He does note more nasal discharge and intermittent epistaxis lately. On review, last chest radiograph was 2018, no mass noted at that time. Chest radiograph now shows left upper lobe mass and likely pneumonia. Labs with WBC 11.1, Hb 13.6, platelets 375, NA 130, K4.8, BUN 9, CR 0.9, glucose 85, BNP 178, troponin 0, albumin 3.3 CT chest with partial left upper lobe collapse and concern for possible lymphangitic spread, a round 6 spiculated mass in the right lower lobe that measures 3.4 x 2.8 cm. There is a 9 mm solid nodule lateral to the inferior margin of this mass. There is a 9 mm nodule in the right upper lobe. EKG sinus rhythm heart rate 58 no STEMI Admitted for further care. Past Medical History Cardiovascular: CAD CENTRAL NERVOUS SYSTEM: CVA, Periperal neuropathy Past Surgical History Past Surgical History: Other (Left hand surgery) Family History Family History: Coronary Artery Disease, High Cholestrol, Hypertension Social History Smoke: 1 pack per day ALCOHOL: heavy Drugs: None Current Medications Current Medications Current Medications Aspirin (Jannie Aspirin) 325 mg 1X ONCE PO Last administered on 12/07/20at 14:13; Start 12/07/20 at 12:30; Stop 12/07/20 at 12:43; Status DC Morphine Sulfate (Morphine Sulfate) 4 mg PRN Q15MIN PRN IV/SQ PAIN GREATER THAN 3/10 Last administered on 12/07/20at 14:14; Start 12/07/20 at 12:30; Stop 12/08/20 at 12:29 Active Scripts Active Cozaar (Losartan Potassium) 50 Mg Tablet 100 Mg PO DAILY 30 Days Can sub with #30 of 100mg tabs Amlodipine Besylate 5 Mg Tablet 5 Mg PO DAILY 30 Days Atorvastatin Calcium 10 Mg Tablet 10 Mg PO QHS 30 Days [Nicotine 21MG] 1 PATCH Patch 1 Patch TD DAILY 30 Days Clopidogrel (Clopidogrel Bisulfate) 75 Mg Tablet 75 Mg PO DAILYWBKFT 30 Days Allergies Allergies: Coded Allergies: No Known Drug Allergies (Unverified , 03/02/19) ROS General: YES: Fatigue, Malaise, Appetite; No: Chills, Night Sweats, Other PSYCHOLOGICAL ROS: YES: Disorientation, Memory difficulties; No: Anxiety, Behavioral Disorder, Concentration difficultie, Decreased libido, Depression, Hallucinations, Hostility, Irritablity, Mood Swings, Obsessive thoughts, Physical abuse, Sexual abuse, Sleep disturbances, Suicidal ideation, Other Eyes: No Blurry vision, No Decreased vision, No Double vision, No Dry eyes, No Excessive tearing, No Eye Pain, No Itchy Eyes, No Loss of vision, No Photophobia, No Scotomata, No Uses contacts, No Uses glasses, No Other HEENT: No: Heacaches, Visual Changes, Hearing change, Nasal congestion, Nasal discharge, Oral lesions, Sinus pain, Sore Throat, Epistaxis, Sneezing, Snoring, Tinnitus, Vertigo, Vocal changes, Other ALLERGY AND IMMUNOLOGY: YES: Nasal Congestion, Post Nasal Drip; No: Hives, Insect Bite Sensitivity, Itchy/Watery Eyes, Seasonal Allergies, Other Hematological and Lymphatic: No: Bleeding Problems, Blood Clots, Blood Transfusions, Brusing, Night Sweats, Pallor, Swollen Lymph Nodes, Other ENDOCRINE: No: Breast Changes, Galactorrhea, Hair Pattern Changes, Hot Flashes, Malaise/lethargy, Mood Swings, Palpitations, Polydipsia/polyuria, Skin Changes, Temperature Intolerance, Unexpected Weight Changes, Other Breast: No New/Changing Breast Lumps, No Nipple changes, No Nipple discharge, No Other Respiratory: YES: Cough, Shortness of breath, SOB with excertion, Tachypnea; No: Hemoptysis, Orthopnea, Pleuritic Pain, Sputum Changes, Stridor, Wheezing, Other Cardiovascular: yes Chest Pain; No Palpitations, No Orthopnea, No Paroxysmal Noc. Dyspnea, No Edema, No Lt Headedness, No Other Gastrointestinal: Yes Nausea; No Vomiting, No Abdominal Pain, No Diarrhea, No Constipation, No Melena, No Hematochezia, No Other Genitourinary: No Dysuria, No Frequency, No Incontinence, No Hematuria, No Retention, No Discharge, No Urgency, No Pain, No Flank Pain, No Other, No , No , No , No , No , No , No Musculoskeletal: No Gait Disturbance, No Joint Pain, No Joint Stiffness, No Joint Swelling, No Muscle Pain, No Muscular Weakness, No Pain In:, No Swelling In:, No Other Neurological: No Behavorial Changes, No Bowel/Bladder ControlChng, No Confusion, No Dizziness, No Gait Disturbance, No Headaches, No Impaired Coord/balance, No Memory Loss, No Numbness/Tingling, No Seizures, No Speech Problems, No Tremors, No Visual Changes, No Weakness, No Other Skin: No Dry Skin, No Eczema, No Hair Changes, No Lumps, No Mole Changes, No Mottling, No Nail Changes, No Pruritus, No Rash, No Skin Lesion Changes, No Other, No Acne 4-05 Cirrhosis of liver who presented with c/o progressive shortness of breath since 10/31/2020. He feels this is due to his COVID 19 vaccine. His son notes has been progressive and he has had a dry cough for the last few days and suddenly became more short of breath D/W RN Vitals Vitals Vital Signs Date Time Temp Pulse Resp B/P (MAP) Pulse Ox O2 Delivery O2 Flow Rate FiO2 12/08/20 07:50 97.9 85 18 112/57 (75) 97 Room Air 97.9 Physical Exam General: Alert, Oriented X3, Cooperative, moderate distress Lungs: Clear Abdomen: Normal bowel sounds, Soft, No tenderness, No hepatosplenomegaly, No masses Extremities: No clubbing, No cyanosis, No edema, Normal pulses, No tenderness/swelling Skin: No rashes, No breakdown, No significant lesion Labs LABS CT of the chest without contrast: Clinical History: Reason: chest pain, soa, mass on xray / Spl. Instructions: / History: . Axial helical images of the chest were obtained without contrast. FINDINGS: There is a round 6 spiculated mass in the right lower lobe that measures 3.4 x 2.8 cm. There is a 9 mm solid nodule lateral to the inferior margin of this mass. There is a 9 mm nodule in the right upper lobe. There is a calcified granuloma in the right middle lobe. There is patchy opacity left upper lobe and collapse of much the left upper lobe with soft tissue opacity above the left hilum. There is a mild left effusion. There is multiple small and borderline size lymph nodes in the mediastinum. There is coronary artery calcifications. The thoracic aorta has normal caliber. Impression: 1. Collapse of much left upper lobe likely due to a perihilar mass and pos tobstructive atelectasis. There is also additional patchy opacity in the left upper lobe which could be lymphangitic spread of cancer. 2. Multiple discrete pulmonary nodules the largest is in the right lower lobe. This could be primary or metastatic cancer. 3. Mild left effusion likely a malignant effusion. End impression PQRS Compliance Statement: One or more of the following individualized dose reduction techniques were utilized for this examination: 1. Automated exposure control 2. Adjustment of the mA and/or kV according to patient size 3. Use of iterative reconstruction technique Electronically signed by: Ozzie Hallman III, MD (12/07/2020 2:20 PM) [facility] DICTATED and SIGNED BY: OZZIE HALLMAN III, MD DATE: 12/07/20 [id number] WHAT IS THE PURPOSE OF AN ADVANCE DIRECTIVE? (ALSO KNOWN A LIVING WILL OR HEALTHCARE POWER OF WHEEL ROLLER) To articulate and document your wishes concerning medical treatment should you lose decision-making ability. To designate an individual, known as your healthcare agent or proxy, to ensure your wishes are honored should you no longer be able to speak for yourself. This includes, among other things, making decisions about when to withhold or withdraw life-sustaining treatment. WHERE CAN I FIND AN ADVANCE DIRECTIVE FORM? The National [employer] Organization has a list of advance di rective forms for every state. We also recommend checking your state governments website for the most up-to-date forms. Find quick links to all state and territory government websites at [employer]. WHAT MUST I INCLUDE IN MY ADVANCE DIRECTIVE? The name and contact information of your healthcare agent/proxy. Answers to specific questions about your preferences for care if you become unable to speak for yourself. The forms and questions asked vary a bit from state to state. A sample question: Do you want to receive artificially provided nutrition or hydration when you are close to and/or permanently unconscious? Names and signatures of individuals who witness your signing your advance directive, if required. Not all states require witness signatures. The signature and seal of a public health aides teacher, if required by your state. Not all states require advance directives to be notarized. [facility] has a list of all advance directive/living will requirements by state. WHAT ELSE WOULD BE GOOD TO INCLUDE IN MY ADVANCE DIRECTIVE? Detailed information about what procedures or types of care you would like to receive and what you wish to avoid at all costs that are not covered by the questions on the form. Would you want to take advantage of all life-support technologies if it would only postpone ? Would you want to use them if you were permanently unconscious? Would you want them if you were going through an advanced progressive illness? More general statements about your values regarding end-of-life care. What does a good mean and look like to you? For that matter, what defines a life worth living? Do you define life by the intake of breath and nutrients? Is it defined by consciousness? At what point do you want to prolong it and at what point do you want to preserve resources for other people? Personal desires for body disposition in essence, what you want to happen to your body when you and plans for any memorial service(s) A list of people who cannot make healthcare decisions for you. Leave no room for ambiguity, which could lead to tensions between loved ones about your care as you are dying. HOW SHOULD I GO ABOUT IDENTIFYING MY HEALTHCARE AGENT/PROXY? An ideal person for the job is someone who: Knows you well. A spouse/partner, a family member, a close friend: all are good candidates. Excels at making difficult decisions under pressure. Is diplomatic and empathetic critical traits for balancing the needs, wants, and unpredictable emotions of a patients loved ones. Isnt afraid to ask tough questions, which invariably arise when discussing a dying individuals end-of-life care. Is easily reachable by email, phone, and/or text. Is or can easily be within physical proximity of where youre likely to receive care. Once Olga identified this person, how do I talk to them about what care I want and dont want at the end of life? Have multiple conversations with your healthcare agent about your wishes. Take them out to tea, have them over for dinner, go to a bar or library. Talk about what you want, and make sure you are heard and understood. If you see fit, and if your agent doesnt already know this information, you can share a bit about the personalities of the people who will be most invested in your health outcomes, and how best to handle these folks in situations when emotions will be running high. This can be a serious conversation or it can be full of laughs. You get to de cide how the conversation plays out. WHAT IF MY HEALTHCARE AGENT/PROXY IS UNAVAILABLE TO EXECUTE THEIR DUTIES WHEN I AM DYING? It is important to appoint an alternative agent/proxy for exactly this reason. Identify and inform that person as you did your main agent/proxy, and list them as an alternate on your advance directive form. WHAT ABOUT THE TWO WITNESSES? ARE THERE ANY SPECIAL REQUIREMENTS FOR WHO CAN AND CANT SERVE IN THIS ROLE? In most states, witnesses cannot be: Your healthcare agent or proxy; Any of your care providers; Related to you by blood, adoption, or marriage; Entitled to any portion of your estate upon your . dpoa review> 20 min to portal Laboratory Tests Test 12/07/20 13:45 12/07/20 19:40 12/07/20 22:45 12/08/20 04:40 White Blood Count 11.1 x10^3/uL (4.0-11.0) Red Blood Count 4.28 x10^6/uL (4.30-5.70) Hemoglobin 13.6 g/dL (13.0-17.5) Hematocrit 40.6 % (39.0-53.0) Mean Corpuscular Volume 95 fL (79-100) Mean Corpuscular Hemoglobin 32 pg (25-35) Mean Corpuscular Hemoglobin Concent 34 g/dL (31-37) Red Cell Distribution Width 13.3 % (11.5-14.5) Platelet Count 375 x10^3/uL (140-400) Neutrophils (%) (Auto) 80 % (31-73) Lymphocytes (%) (Auto) 10 % (24-48) Monocytes (%) (Auto) 9 % (0-9) Eosinophils (%) (Auto) 1 % (0-3) Basophils (%) (Auto) 1 % (0-3) Neutrophils # (Auto) 8.8 x10^3/uL (1.8-7.7) Lymphocytes # (Auto) 1.1 x10^3/uL (1.0-4.8) Monocytes # (Auto) 1.0 x10^3/uL (0.0-1.1) Eosinophils # (Auto) 0.1 x10^3/uL (0.0-0.7) Basophils # (Auto) 0.1 x10^3/uL (0.0-0.2) Prothrombin Time 13.2 SEC (11.7-14.0) Prothromb Time International Ratio 1.0 (0.8-1.1) Sodium Level 130 mmol/L (136-145) 134 mmol/L (136-145) Potassium Level 4.8 mmol/L (3.5-5.1) 3.9 mmol/L (3.5-5.1) Chloride Level 95 mmol/L (98-107) 100 mmol/L (98-107) Carbon Dioxide Level 26 mmol/L (21-32) 23 mmol/L (21-32) Anion Gap 9 (6-14) 11 (6-14) Blood Urea Nitrogen 9 mg/dL (8-26) 7 mg/dL (8-26) Creatinine 0.9 mg/dL (0.7-1.3) 0.8 mg/dL (0.7-1.3) Estimated GFR (Cockcroft-Gault) 83.7 95.8 BUN/Creatinine Ratio 10 (6-20) Glucose Level 85 mg/dL (70-99) 80 mg/dL (70-99) Calcium Level 8.8 mg/dL (8.5-10.1) 8.2 mg/dL (8.5-10.1) Magnesium Level 2.3 mg/dL (1.8-2.4) 2.0 mg/dL (1.8-2.4) Total Bilirubin 0.5 mg/dL (0.2-1.0) Aspartate Amino Transf (AST/SGOT) 21 U/L (15-37) Alanine Aminotransferase (ALT/SGPT) 20 U/L (16-63) Alkaline Phosphatase 79 U/L (46-116) Troponin I Quantitative < 0.017 ng/mL (0.000-0.055) < 0.017 ng/mL (0.000-0.055) < 0.017 ng/mL (0.000-0.055) TJ-Qdl-N-Type Natriuretic Peptide 178 pg/mL (0-124) Total Protein 7.5 g/dL (6.4-8.2) Albumin 3.3 g/dL (3.4-5.0) Albumin/Globulin Ratio 0.8 (1.0-1.7) Assessment and Plan Assessmemt and Plan Problems Medical Problems: (1) Chest pain Status: Acute (2) Mass of left lung Status: Acute (3) Shortness of breath Status: Acute Comment Review of Relevant I have reviewed the following items pancho (where applicable) has been applied. Labs Laboratory Tests Test 12/07/20 13:45 12/07/20 19:40 12/07/20 22:45 12/08/20 04:40 White Blood Count 11.1 x10^3/uL (4.0-11.0) Red Blood Count 4.28 x10^6/uL (4.30-5.70) Hemoglobin 13.6 g/dL (13.0-17.5) Hematocrit 40.6 % (39.0-53.0) Mean Corpuscular Volume 95 fL (79-100) Mean Corpuscular Hemoglobin 32 pg (25-35) Mean Corpuscular Hemoglobin Concent 34 g/dL (31-37) Red Cell Distribution Width 13.3 % (11.5-14.5) Platelet Count 375 x10^3/uL (140-400) Neutrophils (%) (Auto) 80 % (31-73) Lymphocytes (%) (Auto) 10 % (24-48) Monocytes (%) (Auto) 9 % (0-9) Eosinophils (%) (Auto) 1 % (0-3) Basophils (%) (Auto) 1 % (0-3) Neutrophils # (Auto) 8.8 x10^3/uL (1.8-7.7) Lymphocytes # (Auto) 1.1 x10^3/uL (1.0-4.8) Monocytes # (Auto) 1.0 x10^3/uL (0.0-1.1) Eosinophils # (Auto) 0.1 x10^3/uL (0.0-0.7) Basophils # (Auto) 0.1 x10^3/uL (0.0-0.2) Prothrombin Time 13.2 SEC (11.7-14.0) Prothromb Time International Ratio 1.0 (0.8-1.1) Sodium Level 130 mmol/L (136-145) 134 mmol/L (136-145) Potassium Level 4.8 mmol/L (3.5-5.1) 3.9 mmol/L (3.5-5.1) Chloride Level 95 mmol/L (98-107) 100 mmol/L (98-107) Carbon Dioxide Level 26 mmol/L (21-32) 23 mmol/L (21-32) Anion Gap 9 (6-14) 11 (6-14) Blood Urea Nitrogen 9 mg/dL (8-26) 7 mg/dL (8-26) Creatinine 0.9 mg/dL (0.7-1.3) 0.8 mg/dL (0.7-1.3) Estimated GFR (Cockcroft-Gault) 83.7 95.8 BUN/Creatinine Ratio 10 (6-20) Glucose Level 85 mg/dL (70-99) 80 mg/dL (70-99) Calcium Level 8.8 mg/dL (8.5-10.1) 8.2 mg/dL (8.5-10.1) Magnesium Level 2.3 mg/dL (1.8-2.4) 2.0 mg/dL (1.8-2.4) Total Bilirubin 0.5 mg/dL (0.2-1.0) Aspartate Amino Transf (AST/SGOT) 21 U/L (15-37) Alanine Aminotransferase (ALT/SGPT) 20 U/L (16-63) Alkaline Phosphatase 79 U/L (46-116) Troponin I Quantitative < 0.017 ng/mL (0.000-0.055) < 0.017 ng/mL (0.000-0.055) < 0.017 ng/mL (0.000-0.055) TQ-Svs-M-Type Natriuretic Peptide 178 pg/mL (0-124) Total Protein 7.5 g/dL (6.4-8.2) Albumin 3.3 g/dL (3.4-5.0) Albumin/Globulin Ratio 0.8 (1.0-1.7) Laboratory Tests Test 12/07/20 13:45 12/07/20 19:40 12/07/20 22:45 12/08/20 04:40 White Blood Count 11.1 x10^3/uL (4.0-11.0) Red Blood Count 4.28 x10^6/uL (4.30-5.70) Hemoglobin 13.6 g/dL (13.0-17.5) Hematocrit 40.6 % (39.0-53.0) Mean Corpuscular Volume 95 fL (79-100) Mean Corpuscular Hemoglobin 32 pg (25-35) Mean Corpuscular Hemoglobin Concent 34 g/dL (31-37) Red Cell Distribution Width 13.3 % (11.5-14.5) Platelet Count 375 x10^3/uL (140-400) Neutrophils (%) (Auto) 80 % (31-73) Lymphocytes (%) (Auto) 10 % (24-48) Monocytes (%) (Auto) 9 % (0-9) Eosinophils (%) (Auto) 1 % (0-3) Basophils (%) (Auto) 1 % (0-3) Neutrophils # (Auto) 8.8 x10^3/uL (1.8-7.7) Lymphocytes # (Auto) 1.1 x10^3/uL (1.0-4.8) Monocytes # (Auto) 1.0 x10^3/uL (0.0-1.1) Eosinophils # (Auto) 0.1 x10^3/uL (0.0-0.7) Basophils # (Auto) 0.1 x10^3/uL (0.0-0.2) Prothrombin Time 13.2 SEC (11.7-14.0) Prothromb Time International Ratio 1.0 (0.8-1.1) Sodium Level 130 mmol/L (136-145) 134 mmol/L (136-145) Potassium Level 4.8 mmol/L (3.5-5.1) 3.9 mmol/L (3.5-5.1) Chloride Level 95 mmol/L (98-107) 100 mmol/L (98-107) Carbon Dioxide Level 26 mmol/L (21-32) 23 mmol/L (21-32) Anion Gap 9 (6-14) 11 (6-14) Blood Urea Nitrogen 9 mg/dL (8-26) 7 mg/dL (8-26) Creatinine 0.9 mg/dL (0.7-1.3) 0.8 mg/dL (0.7-1.3) Estimated GFR (Cockcroft-Gault) 83.7 95.8 BUN/Creatinine Ratio 10 (6-20) Glucose Level 85 mg/dL (70-99) 80 mg/dL (70-99) Calcium Level 8.8 mg/dL (8.5-10.1) 8.2 mg/dL (8.5-10.1) Magnesium Level 2.3 mg/dL (1.8-2.4) 2.0 mg/dL (1.8-2.4) Total Bilirubin 0.5 mg/dL (0.2-1.0) Aspartate Amino Transf (AST/SGOT) 21 U/L (15-37) Alanine Aminotransferase (ALT/SGPT) 20 U/L (16-63) Alkaline Phosphatase 79 U/L (46-116) Troponin I Quantitative < 0.017 ng/mL (0.000-0.055) < 0.017 ng/mL (0.000-0.055) < 0.017 ng/mL (0.000-0.055) NJ-Uvu-R-Type Natriuretic Peptide 178 pg/mL (0-124) Total Protein 7.5 g/dL (6.4-8.2) Albumin 3.3 g/dL (3.4-5.0) Albumin/Globulin Ratio 0.8 (1.0-1.7) Medications Current Medications Aspirin (Criptext Aspirin) 325 mg 1X ONCE PO Last administered on 12/07/20 14:13; Start 12/07/20 at 12:30; Stop 12/07/20 at 12:43; Status DC Morphine Sulfate (Morphine Sulfate) 4 mg PRN Q15MIN PRN IV/SQ PAIN GREATER THAN 3/10 Last administered on 12/07/20at 14:14; Start 12/07/20 at 12:30; Stop 12/08/20 at 07:44; Status DC Amlodipine Besylate (Norvasc) 5 mg DAILY PO ; Start 12/08/20 at 09:00 Atorvastatin Calcium (Lipitor) 10 mg QHS PO Last administered on 12/07/20at 21:29; Start 12/07/20 at 21:00 Losartan Potassium (Cozaar) 100 mg DAILY PO ; Start 12/08/20 at 09:00 Nicotine (Nicoderm Cq 21mg) 1 patch DAILY TD ; Start 12/08/20 at 09:00; Stop 12/07/20 at 21:26; Status DC Multivitamins (Thera M Plus) 1 tab DAILY PO ; Start 12/12/20 at 09:00 Folic Acid (Folic Acid) 1 mg DAILY PO Last administered on 12/07/20 21:28; Start 12/07/20 at 17:00 Thiamine Mononitrate (Vitamin B-1) 100 mg DAILY PO Last administered on 12/07/20at 21:28; Start 12/07/20 at 17:00 Sodium Chloride 1,000 ml @ 100 mls/hr Q10H IV Last administered on 12/07/20at 21:29; Start 12/07/20 at 16:30; Stop 12/08/20 at 02:29; Status DC Ondansetron HCl (Zofran) 4 mg PRN Q4HRS PRN IV NAUSEA/VOMITING; Start 12/07/20 at 16:30 Acetaminophen (Tylenol) 650 mg PRN Q4HRS PRN PO TEMP OVER 100.4F OR MILD PAIN; Start 12/07/20 at 16:30 Acetaminophen (Tylenol Supp) 650 mg PRN Q4HRS PRN [place] TEMP OVER 100.4F OR MILD PAIN; Start 12/07/20 at 16:30 Ondansetron HCl (Zofran) 4 mg PRN Q8HRS PRN IV NAUSEA/VOMITING; Start 12/07/20 at 17:30; Stop 12/08/20 at 07:44; Status DC Morphine Sulfate (Morphine Sulfate) 4 mg PRN Q2HR PRN IV PAIN; Start 12/07/20 at 17:30; Stop 12/08/20 at 17:29 Budesonide (Pulmicort) 0.5 mg RTBID NEB Last administered on 12/08/20at 07:35; Start 12/07/20 at 20:00 Albuterol Sulfate (Ventolin Neb Soln) 2.5 mg PRN Q4HRS PRN NEB SHORTNESS OF BREATH; Start 12/07/20 at 17:30 Albuterol/ Ipratropium (Duoneb) 3 ml RTQID NEB Last administered on 12/08/20at 07:35; Start 12/07/20 at 20:00 Doxycycline Hyclate 100 mg/ Dextrose 100 ml @ 50 mls/hr BID IV Last administered on 12/07/20at 20:36; Start 12/07/20 at 21:00 Ceftriaxone Sodium (Rocephin) 1 gm Q24H IVP Last administered on 12/07/20at 21:56; Start 12/07/20 at 18:00 Famotidine (Pepcid) 20 mg QHS PO Last administered on 12/07/20at 21:28; Start 12/07/20 at 21:00 Nicotine (Nicoderm Cq 21mg) 1 patch DAILY TD Last administered on 12/07/20at 21:56; Start 12/07/20 at 21:30 Active Scripts Active Amlodipine Besylate 5 Mg Tablet 5 Mg PO DAILY 30 Days Atorvastatin Calcium 10 Mg Tablet 10 Mg PO QHS 30 Days [Nicotine 21MG] 1 PATCH Patch 1 Patch TD DAILY 30 Days Clopidogrel (Clopidogrel Bisulfate) 75 Mg Tablet 75 Mg PO DAILYWBKFT 30 Days Reported Benicar (Olmesartan Medoxomil) 20 Mg Tablet 1 Tab PO DAILY 30 Days Vitals/I & O Vital Sign - Last 24 Hours 12/07/20 12/07/20 12/07/20 12/07/20 12:04 17:24 17:54 18:24 Temp 97.4 97.4 Pulse 60 54 Resp 20 18 18 18 B/P (MAP) 120/60 (80) 139/63 (88) 136/63 (87) 138/62 (87) Pulse Ox 98 97 97 96 O2 Delivery Room Air Room Air Room Air Room Air 12/07/20 12/07/20 12/07/20 12/07/20 19:24 19:54 20:24 21:00 Resp 18 18 18 B/P (MAP) 119/59 (79) 121/58 (79) 121/72 (88) Pulse Ox 97 97 95 O2 Delivery Room Air Room Air Room Air Room Air 12/07/20 12/07/20 12/07/20 12/07/20 21:00 22:02 22:03 22:44 Temp 97.7 97.5 97.7 97.5 Pulse 58 60 Resp 16 18 B/P (MAP) 142/65 (90) 119/57 (77) Pulse Ox 97 97 97 95 O2 Delivery Room Air Room Air Room Air Room Air 12/08/20 12/08/20 12/08/20 03:11 07:35 07:50 Temp 97.5 97.9 97.5 97.9 Pulse 73 85 Resp 18 18 B/P (MAP) 108/57 (74) 112/57 (75) Pulse Ox 97 96 97 O2 Delivery Room Air Room Air Room Air Justicifation of Admission Dx: Justifications for Admission: Justification of Admission Dx: Yes Comminuty Aquired Pneumonia: Hypoxemia Acute COPD Exacerbation: Acute COPD Exacerbation LEONARDO GALINDO MD Dec 08, 2020 08:44
[2020-12-08] MEDS ORDERED: NICOTINE 21MG PATCH. TD SCH (09:00)
[2020-12-08 10:15] VITALS: BP 108/57
--- NOTE | 2020-12-08 10:59 | CONS ---
DATE OF CONSULTATION: PULMONARY CONSULTATION ATTENDING PHYSICIAN: Obie Cullen MD REASON FOR CONSULTATION: Lung mass, tobacco use, COPD. HISTORY OF PRESENT ILLNESS: The patient is a 70-year-old male who has been a smoker since age 10. He has history of also cirrhosis of liver. He presented to the hospital with a nonresolving cough for past 1 month. The patient states he did receive a COVID vaccine and has been coughing for last one month. He has no significant hemoptysis. Denies any significant weight loss. He has some chest pain with coughing. No headaches. No nausea, vomiting, no diarrhea. No dysuria, no focal weakness. He has history of previous CVA and some numbness in lower extremities. CT chest was reviewed by me, dated 12/07/2020. The patient has collapse of the left upper lobe, likely due to combination of suspected endobronchial lesion as well as extrinsic compression by the left perihilar mass with some obstructive atelectasis. There is also additional mass-like density involving the right lower lobe. There is some suspected lymphangitic spread in the left upper lobe. There is mild left pleural effusion. I have been asked to see him for further evaluation. PAST MEDICAL HISTORY: Significant for history of CAD, history of CVA, history of peripheral neuropathy. PAST SURGICAL HISTORY: Left hand surgery. FAMILY HISTORY: Coronary artery disease, dyslipidemia, and hypertension. SOCIAL HISTORY: One pack per day since age 10. History of alcoholism. ALLERGIES: None. MEDICATIONS: Reviewed as listed in the MRAD including antibiotic, doxycycline, DuoNebs along with Pulmicort and Rocephin. REVIEW OF SYSTEMS: Twelve-point system obtained. Pertinent positives discussed in my history of present illness, otherwise noncontributory. All systems that were negative were reviewed as well. FAMILY HISTORY: Noncontributory to lungs. PHYSICAL EXAMINATION: VITAL SIGNS: Reviewed. Pulse ox 98% on room air. NECK: Supple. LUNGS: With no wheezing. CARDIOVASCULAR: With a regular rate. ABDOMEN: Soft, nontender. EXTREMITIES: With no pitting edema. LABORATORY DATA: Reviewed. White cell count 11.1, hemoglobin 13.6 and platelets are 375. BUN and creatinine normal. Troponin normal. His COVID test is pending. IMPRESSION: 1. Abnormal CT chest with obstructive collapse of the left upper lobe. He has a suspected endobronchial lesion involving the left upper lobe and also extrinsic compression by the left hilar mass. He also has a mass-like density in the right lower lobe, which is likely metastatic. There is a small effusion on the left base, which is again clinically suspected metastatic effusion. These findings are highly suspected for stage 4 bronchogenic cancer. The patient would benefit from diagnostic bronchoscopy for a definite diagnosis. 2. Underlying chronic obstructive pulmonary disease from history of tobacco use since age 10. 3. Prior history of cerebrovascular accident with some residual neuropathy. 4. Postobstructive pneumonia. RECOMMENDATIONS: 1. Discussed with the patient about the need for bronchoscopy for a definite diagnosis, he agrees to proceed with it. All risks and benefits were explained. 2. Once diagnosis is confirmed, then he will need a PET scan as an outpatient. 3. Full pulmonary function tests as an outpatient. 4. Continue empiric antibiotic. 5. Continue DuoNebs. 6. Smoking cessation counseling provided. 7. Discussed with RN. We will make further recommendations after bronchoscopy. Dr. Pérez will perform the procedure tomorrow. FERMIN POWELL MD DR: REJI/gaudencio JOB#: [id number] / [id number]
--- NOTE | 2020-12-08 12:19 | NUR ---
SS following for discharge planning. SS reviewed pt chart and discussed with pt RN. Pt is from home and is currently on room air. COVID19 test pending. Pt on IV Rocephin and IV Doxycycline. Bronchoscopy scheduled for tomorrow. SS will continue to follow for discharge planning.
[2020-12-08 14:01] VITALS: BP 100/55
[2020-12-08] MEDS: cefTRIAXone IV Push 1 GM VIAL. IVP SCH (18:04)
[2020-12-08 19:45] VITALS: BP 122/57
[2020-12-08] MEDS: ATORVASTATIN CALCIUM 10 MG TABLET. PO SCH (20:07)
[2020-12-08] MEDS: FAMOTIDINE 20 MG TABLET. PO SCH (20:07)
[2020-12-08 23:10] VITALS: BP 113/59
[2020-12-09 03:15] VITALS: BP 115/55
[2020-12-09 07:00] VITALS: BP 116/57
[2020-12-09] MEDS ORDERED: IV RINGERS,LACTATED 1000ML 1,000 ML IV SCH (07:00)
[2020-12-09] MEDS: BUDESONIDE 0.5 MG/2 ML NEBU. NEB SCH (07:29)
[2020-12-09] MEDS: IPRATRPIUM/ALBUTEROL 0.5/2.5MG 3 ML NEBU. NEB SCH ×2 (07:30→12:00)
[2020-12-09] MEDS ORDERED: LIDOCAINE 1% Multi-Dose 20 ML VIAL. INJ PRN (08:00)
[2020-12-09] MEDS ORDERED: LIDOCAINE 2% VISCOUS 100 ML BOTTLE. MM PRN (08:00)
[2020-12-09] MEDS ORDERED: EPINEPHrine 1 MG/ML VIAL INJ PRN (08:00)
[2020-12-09] MEDS ORDERED: LIDOCAINE 4% TOPICAL 50 ML SOLUTION. MM PRN (08:00)
--- NOTE | 2020-12-09 08:14 | PDOC ---
PULMONARY PROGRESS NOTES DATE: 12/09/20 TIME: 08:14 Subjective Patient denies any hemoptysis no chest pain no pressure shortness of breath is better Vitals Vital Signs Date Time Temp Pulse Resp B/P (MAP) Pulse Ox O2 Delivery O2 Flow Rate FiO2 12/09/20 07:30 97 Room Air 12/09/20 03:15 98.6 73 18 115/55 (75) 98.6 ROS: No Nausea, No Chest Pain, No Abdominal Pain, No Increase Cough General: Alert Lungs: Clear Cardiovascular: S1 Abdomen: Soft, Non-tender Neuro Exam: Alert Extremities: No Edema Skin: Warm Labs Laboratory Tests Test 12/07/20 13:45 12/07/20 19:40 12/07/20 20:50 12/07/20 22:45 White Blood Count 11.1 x10^3/uL (4.0-11.0) Red Blood Count 4.28 x10^6/uL (4.30-5.70) Hemoglobin 13.6 g/dL (13.0-17.5) Hematocrit 40.6 % (39.0-53.0) Mean Corpuscular Volume 95 fL (79-100) Mean Corpuscular Hemoglobin 32 pg (25-35) Mean Corpuscular Hemoglobin Concent 34 g/dL (31-37) Red Cell Distribution Width 13.3 % (11.5-14.5) Platelet Count 375 x10^3/uL (140-400) Neutrophils (%) (Auto) 80 % (31-73) Lymphocytes (%) (Auto) 10 % (24-48) Monocytes (%) (Auto) 9 % (0-9) Eosinophils (%) (Auto) 1 % (0-3) Basophils (%) (Auto) 1 % (0-3) Neutrophils # (Auto) 8.8 x10^3/uL (1.8-7.7) Lymphocytes # (Auto) 1.1 x10^3/uL (1.0-4.8) Monocytes # (Auto) 1.0 x10^3/uL (0.0-1.1) Eosinophils # (Auto) 0.1 x10^3/uL (0.0-0.7) Basophils # (Auto) 0.1 x10^3/uL (0.0-0.2) Prothrombin Time 13.2 SEC (11.7-14.0) Prothromb Time International Ratio 1.0 (0.8-1.1) Sodium Level 130 mmol/L (136-145) Potassium Level 4.8 mmol/L (3.5-5.1) Chloride Level 95 mmol/L (98-107) Carbon Dioxide Level 26 mmol/L (21-32) Anion Gap 9 (6-14) Blood Urea Nitrogen 9 mg/dL (8-26) Creatinine 0.9 mg/dL (0.7-1.3) Estimated GFR (Cockcroft-Gault) 83.7 BUN/Creatinine Ratio 10 (6-20) Glucose Level 85 mg/dL (70-99) Calcium Level 8.8 mg/dL (8.5-10.1) Magnesium Level 2.3 mg/dL (1.8-2.4) Total Bilirubin 0.5 mg/dL (0.2-1.0) Aspartate Amino Transf (AST/SGOT) 21 U/L (15-37) Alanine Aminotransferase (ALT/SGPT) 20 U/L (16-63) Alkaline Phosphatase 79 U/L (46-116) Troponin I Quantitative < 0.017 ng/mL (0.000-0.055) < 0.017 ng/mL (0.000-0.055) < 0.017 ng/mL (0.000-0.055) OV-Dvw-S-Type Natriuretic Peptide 178 pg/mL (0-124) Total Protein 7.5 g/dL (6.4-8.2) Albumin 3.3 g/dL (3.4-5.0) Albumin/Globulin Ratio 0.8 (1.0-1.7) Coronavirus (PCR) Not detected (Not Detected) Test 12/08/20 04:40 Sodium Level 134 mmol/L (136-145) Potassium Level 3.9 mmol/L (3.5-5.1) Chloride Level 100 mmol/L (98-107) Carbon Dioxide Level 23 mmol/L (21-32) Anion Gap 11 (6-14) Blood Urea Nitrogen 7 mg/dL (8-26) Creatinine 0.8 mg/dL (0.7-1.3) Estimated GFR (Cockcroft-Gault) 95.8 Glucose Level 80 mg/dL (70-99) Calcium Level 8.2 mg/dL (8.5-10.1) Magnesium Level 2.0 mg/dL (1.8-2.4) Medications Active Scripts Medications Dose Route/Sig Max Daily Dose Days Date Category Benicar (Olmesartan Medoxomil) 20 Mg Tablet 1 Tab PO DAILY 12/08/20 Reported Amlodipine Besylate 5 Mg Tablet 5 Mg PO DAILY 03/04/19 Rx Atorvastatin Calcium 10 Mg Tablet 10 Mg PO QHS 03/04/19 Rx [Nicotine 21MG] 1 PATCH Patch 1 Patch TD DAILY 03/04/19 Rx Clopidogrel (Clopidogrel Bisulfate) 75 Mg Tablet 75 Mg PO DAILYWBKFT 03/04/19 Rx Impression . IMPRESSION: 1. Abnormal CT chest with obstructive collapse of the left upper lobe. He has a suspected endobronchial lesion involving the left upper lobe and also extrinsic compression by the left hilar mass. He also has a mass-like density in the right lower lobe, which is likely metastatic. There is a small effusion on the left base, which is again clinically suspected metastatic effusion. These findings are highly suspected for stage 4 bronchogenic cancer. The patient would benefit from diagnostic bronchoscopy for a definite diagnosis. 2. Underlying chronic obstructive pulmonary disease from history of tobacco use since age 10. 3. Prior history of cerebrovascular accident with some residual neuropathy. 4. Postobstructive pneumonia. Plan . Updated 12/09 Reviewed risk benefits and alternatives with the patient he consented We will proceed with diagnostic bronchoscopy Follow-up in the office next week All questions answered. RECOMMENDATIONS: 1. Discussed with the patient about the need for bronchoscopy for a definite diagnosis, he agrees to proceed with it. All risks and benefits were explained. 2. Once diagnosis is confirmed, then he will need a PET scan as an outpatient. 3. Full pulmonary function tests as an outpatient. 4. Continue empiric antibiotic. 5. Continue DuoNebs. 6. Smoking cessation counseling provided. 7. Discussed with RN. We will make further recommendations after bronchoscopy. Dr. Salinas will perform the procedure tomorrow. GORDON SALINAS MD Dec 09, 2020 08:14
[2020-12-09] MEDS: DOXYCYCLINE HYCLATE 100 MG in IV DEXTROSE 5% 100ML 100 ML IV SCH (08:48)
[2020-12-09] MEDS: NICOTINE 21MG PATCH. TD SCH (08:50)
[2020-12-09] MEDS: LOSARTAN POTASSIUM 50 MG TABLET. PO SCH (08:51)
[2020-12-09] MEDS: amLODIPine BESYLATE 5 MG TABLET PO SCH (08:52)
[2020-12-09] MEDS: FOLIC ACID 1 MG TABLET. PO SCH (09:00)
[2020-12-09] MEDS: THIAMINE 100 MG TABLET. PO SCH (09:00)
--- NOTE | 2020-12-09 09:58 | NUR ---
SS following up with discharge planning. SS reviewed pt chart and discussed with pt RN. Pt is currently on room air. COVID19 negative. Pt on IV Doxycycline and IV Rocephin. Pt having Bronchoscopy today. Discharge plan is to home when medically ready. SS will continue to follow for discharge planning.
[2020-12-09] MEDS ORDERED: EPINEPHrine 1 MG/ML VIAL ONE (10:04)
[2020-12-09] MEDS ORDERED: LIDOCAINE 4% TOPICAL 50 ML SOLUTION. ONE (10:04)
[2020-12-09] MEDS ORDERED: LIDOCAINE 1% Multi-Dose 20 ML VIAL. ONE (10:04)
[2020-12-09] MEDS ORDERED: LIDOCAINE 2% VISCOUS 100 ML BOTTLE. ONE (10:04)
[2020-12-09 11:00] VITALS: BP 127/62
[2020-12-09] MEDS ORDERED: ALBU2.5V8 NEB (11:16)
--- NOTE | 2020-12-09 11:55 | DS ---
DATE OF DISCHARGE: 12/09/2020 ADMISSION DIAGNOSIS: Shortness of breath, coughing, new lung mass, chronic obstructive pulmonary disease, chest discomfort, respiratory failure, pneumonia, cirrhosis, hyponatremia. DISCHARGE DIAGNOSES: New lung mass (he is going for bronchoscopy). We plan to discharge after that have him follow up for his results in a few days, history of tobacco abuse ([id number] history), coronary artery disease, previous cerebrovascular accident, neuropathy, left hand surgery, hyperlipidemia, hypertension, resolving respiratory failure, resolving pneumonia, carotid artery disease, cirrhosis of the liver, hyponatremia, alcohol abuse. CONSULTS: Pulmonary Medicine. PROCEDURES: Bronchoscopy. HOSPITAL COURSE: The patient is a pleasant elderly male who has a [id number] history, basically presented with some shortness of breath, cough and chest discomfort and imaging is showing a left lung mass. Today, I saw and examined the patient. He is at his baseline. He wants to go home, but we do have a bronchoscopy scheduled for later today. I discussed the case with case management and the nurse. We are going to discharge after the bronchoscopy if he is stable and if okay with Pulmonary Medicine. DISPOSITION: Home. ACTIVITY: As tolerated. DIET: Low sodium. MEDICATIONS: Please see the MRAD. Albuterol metered-dose inhaler, amlodipine 5 a day, atorvastatin 10 a day, Plavix 75 a day, nicotine patch and Benicar 20 daily. TOTAL TIME: Thirty-two minutes. RAO SIMMONS DO DR: CYNDY/gaudencio JOB#: [id number] / [id number]
[2020-12-09] MEDS ORDERED: PROPOFOL 10 MG/ML (20ML) VIAL. IV ONE (12:29)
[2020-12-09] MEDS ORDERED: LIDOCAINE 2% PF 5 ML VIAL. ONE (12:29)
[2020-12-09 15:00] VITALS: BP 148/69
--- NOTE | 2020-12-09 15:45 | PDOC4 ---
PROCEDURE Procedure Full note dictated Total occlusion of the left upper lobe main bronchus Unable to perform forceps biopsy, upon touching the area with the forceps started to bleed prior to me obtaining any biopsies. A brush sampling was obtained. GORDON SALINAS MD Dec 09, 2020 15:45
--- NOTE | 2020-12-09 16:31 | OP ---
DATE OF SURGERY: 12/09/2020 ATTENDING PHYSICIAN: Obie Cullen MD PROCEDURE: Bronchoscopy, brush biopsy. INDICATIONS: The patient presented with abnormal CT chest, increasing shortness of breath. CT revealed collapse of the left upper lobe due to a perihilar mass with postobstructive atelectasis with also possibility of an endobronchial lesion. Undergoing diagnostic bronchoscopy, risks, benefits, and alternatives reviewed with the patient, he consented. DESCRIPTION OF PROCEDURE: A timeout was performed prior to sedation. Vital signs and O2 saturations were maintained throughout the procedure. The patient was sedated under the direction of anesthesia. Once sedated, the bronchoscope was passed through a bite block. Vocal cords were identified moving bilaterally without any dysfunction. Vocal cords were anesthetized with total 5 cc of 4% lidocaine. The bronchoscope was passed through the vocal cords into the proximal trachea, which was normal. The right segments and subsegments were visualized. There was no endobronchial lesion. Upon inspecting the left side, the left upper lobe main bronchus was occluded. I could not visualize the portion going up to the left upper lobe or the lingula. There was also distortion of the left lower lobe subsegment. I was able to pass the scope through the distorted anatomy and visualized the lower lobe segments. The superior segment of the left lower lobe was patent. Initially, I attempted forceps biopsy of the endobronchial mass. Unfortunately, as soon as I touched it started to bleed. I did not perform any forceps biopsies. I did utilize a cytology brush and broached the superficial area. Prior to terminating the procedure, hemostasis had been obtained. To play on the safe side, I did infuse 5 mL of epinephrine as a vasoconstrictor. The patient tolerated procedure well with no immediate complications. FINDINGS: 1. Normal vocal cords. 2. No endobronchial lesion on the right side. 3. Total occlusion of the left upper lobe main bronchus. 4. [place] biopsy performed. Unable to perform a forceps biopsy secondary to significant amount of bleeding once the area was touched with the forceps. PLAN: The patient is to follow up with me next week in the office. GORDON SALINAS MD DR: DONALD/gaudencio JOB#: [id number] / [id number]
--- NOTE | 2020-12-09 17:15 | NUR ---
DISCHARGED PATIENT TO HOME. PIV AND HEART MONITOR REMOVED. ESCORTED PATIENT OFF UNIT PER WHEELCHAIR INTO A PRIVATE VEHICLE.
[2020-12-12] MEDS ORDERED: MULTIVITAMIN with MINERAL TABLET. PO SCH (09:00)
== END 2020-12-09 17:15 | disposition home or self-care (01) | DRG 871 ==
LOC: ER 11:58 → 2 SOUTH 17:55
PROVIDERS: ADMIT Internal Medicine; ATTEND Internal Medicine
PROC: 0BJ08ZZ Inspection of Tracheobronchial Tree, Via Natural or Artificial Opening Endoscopic (ICD-10-PCS; principal; 2020-12-09 12:30)
DX: A41.9 Sepsis, unspecified organism (principal); J18.9 Pneumonia, unspecified organism; E87.1 Hypo-osmolality and hyponatremia; J98.11 Atelectasis; J44.0 Chronic obstructive pulmonary disease with (acute) lower respiratory infection; R91.8 Other nonspecific abnormal finding of lung field; E78.5 Hyperlipidemia, unspecified; E86.1 Hypovolemia; F17.210 Nicotine dependence, cigarettes, uncomplicated; I10 Essential (primary) hypertension; I25.10 Atherosclerotic heart disease of native coronary artery without angina pectoris; K74.60 Unspecified cirrhosis of liver; Z82.49 Family history of ischemic heart disease and other diseases of the circulatory system; Z86.73 Personal history of transient ischemic attack (TIA), and cerebral infarction without residual deficits; F10.20 Alcohol dependence, uncomplicated; G62.9 Polyneuropathy, unspecified; I77.9 Disorder of arteries and arterioles, unspecified; Z71.6 Tobacco abuse counseling; Z20.822 Contact with and (suspected) exposure to COVID-19
CPT/HCPCS: 31622; 36415; 71045; 71250; 80048; 80053; 83735; 83880; 84484; 85025; 85610; 87070; 87205; 87449; 94640; 94760; 96374; 99285; J0171; J0696; J2270; J2704; J3490; J7030; J7060; J7120; U0003; U0005; G0378; J7626

== ENCOUNTER → 2020-12-26 | Outpatient (CLI) | payer MEDICARE ==
[2020-12-09 15:00] VITALS: BP 148/69
[~2020-12-26] MED LIST changes: +ALBU2.5V8 NEB; +OLME20TA17 PO
[2020-12-26] MEDS: GADOTERATE 7.5 MMOL/15ML VIAL. IVP ONE (10:57)
--- NOTE | 2020-12-26 11:32 | RAD ---
EXAM: Dual modality PET-CT Scan DATE: 12/26/2020 RADIOPHARMACEUTICAL: 15 mCi F-18 fluorodeoxyglucose (FDG) IV. CLINICAL HISTORY: Lung cancer staging. COMPARISON: CT dated 12/07/2020. TECHNIQUE: Approximately 45 minutes after tracer administration, routine, attenuation-corrected Posit gage Emission Tomography (PET) images were obtained from the level of the base of the skull through th e level of the mid thighs. Tomographic reconstructions are reviewed in coronal, transaxial and sagitt al planes. Non-contrast CT imaging was performed for attenuation correction and localization purpose s only. These images do not constitute a diagnostic-quality CT examination and were not used to diag nose disease independently of the PET images. The blood glucose level was 91 mg/dL at the time of FDG administration. *One or more of the following individualized dose reduction techniques were utilized for this examina tion: 1. Automated exposure control. 2. Adjustment of the mA and/or kV according to patient size. 3. Use of iterative reconstruction technique. FINDINGS: There is intense radiotracer activity associated with a left hilar/suprahilar mass demonstr ate a maximum SUV of 10.7. The size of this mass is difficult to measure given left upper lobe collap se. The collapsed left upper lobe demonstrates a maximum SUV of 3.7, possibly due to postobstructive pneumonia. There is increased radiotracer activity within maximum SUV of 4.3 associated with a 3.8 cm right lowe r lobe mass. Despite bronchograms within this mass, the CT appearance favors additional neoplasm rath er than an infectious etiology. There is mild tracer activity within maximum SUV of 1.0 within a 10 m m nodule within the lateral right upper lobe. This remains indeterminant. There is increased retained tracer activity within maximum SUV of 3.8 within a suspected metastatic r ight hilar lymph node. There is fairly symmetric increased tracer tracer activity within maximum SUV of 3.9 within the bilat eral posterior medial costovertebral junctions, the symmetry of which favors a physiologic etiology. No fracture, soft tissue mass or osseous metastasis is seen in these locations. There is intense greater tracer activity within maximum SUV of 8.3 at the base of the appendix. Evalu ation for a mass in this location is limited in the absence of contrast. There is also increased vikas ined tracer activity within enlarged right mesenteric lymph nodes, the largest of which measures 1.3 cm with a maximum SUV of 3.2. The CT portion of the exam demonstrates a consolidated collapsed left upper lobe. There is a small le ft pleural effusion. There is right apical predominant emphysema with subpleural bleb formation. Ther e is a spiculated mass with traversing bronchi within the right lower lobe measuring 3.8 cm. There is a 6 mm satellite nodule along the inferior lateral aspect of this lesion. There is a 4 mm groundglas s nodule along the right minor fissure, possibly a fissural lymph node. There is 10 mm irregular nodu le within the lateral right upper lobe. There is posterior dependent and basilar atelectasis. The heart is normal in size. There is heavily calcified atherosclerotic plaque involving the aorta, a ortic arch great vessels and coronary arteries. There are enlarged mediastinal and left hilar lymph n odes. For reference purposes, there is a left paratracheal lymph node measuring 2.6 cm. There is a le ft prevascular lymph node measuring 1.8 cm. The left hilar lymph nodes are obscured due to aforementi oned left upper lobe collapse. Evaluation of the liver is limited due to motion. No convincing suspicious lesion is seen. The gallbl adder, pancreas, and spleen are unremarkable. There is a small diverticulum along the posterior aspec t of the gastric cardia. There are calcified periportal lymph nodes, a nonspecific finding. No renal lesion is seen on this noncontrast exam. There is stranding at the base of the appendix. The absence of contrast and slight motion is location limits avulsion for a mass. There are enlarged right mesenteric lymph nodes measuring up to 1.3 cm. There is no bowel obstruction. The bladder is distended. The prostate is enlarged. There is heavily c alcified atherosclerotic plaque involving the abdominal aorta and aortic branch vessels. No aneurysm is seen. There are degenerative changes throughout the spine. There are few osseous hemangiomas, the largest of which is seen within the right aspect of T9. The visualized portions the brain demonstrate a chronic infarct within the left cerebellum. There are cerebral white matter changes likely due to chronic small vessel disease. There is heavily calcified plaque involving the carotid bifurcations. IMPRESSION: 1. Radiotracer avid left hilar/suprahilar mass with a maximum SUV of 10.1, the appearance of which fa vors neoplasm. There is suspected postobstructive collapse and possible underlying partial consolidat ion of the left upper lobe with a maximum SUV of 3.7. This mass obscures the left hilar lymph nodes. There is mild left paratracheal and prevascular lymphadenopathy which demonstrates mild tracer activi ty within SUV of 3.4. 2. Radiotracer avid 3.8 cm right lower lobe mass with maximum SUV of 4.3. This is concerning for yuval tional malignancy. There is also a suspected metastatic right hilar lymph node with a maximum SUV of 3.8. 3. Intense greater tracer activity within maximum SUV of 8.3 at the base of the appendix. Evaluated f or a mass in this location is limited due to the absence of contrast and motion. Correlate with colon oscopy or abdomen and pelvis CT findings. There are additional enlarged greater tracer avid right per icecal/mesenteric lymph nodes which may be reactive or metastatic in etiology. 4. Mild greater tracer activity within SUV of 1.0 within a 10 mm right upper lobe or nodule. This rem ains indeterminant. 5. Please refer to the above report for additional findings regarding the non-PET portion of the exam . Electronically signed by: Paty Santana MD (12/26/2020 11:30 AM) [id number]
--- NOTE | 2020-12-26 14:43 | RAD ---
EXAM: Brain MRI with and without contrast. HISTORY: Lung cancer staging. TECHNIQUE: Multiplanar, multisequence magnetic resonance imaging of the brain was performed prior to and following the administration of intravenous contrast. COMPARISON: 03/04/2019 FINDINGS: There is no restricted diffusion to suggest acute or subacute infarction. There is no susce ptibility effect to suggest hemorrhage. There is no mass effect or midline shift. There is no hydroce phalus. There is encephalomalacia due to chronic infarction within the left greater than right cerebellar hem ispheres. There are multiple scattered focal areas of signal change within the cerebral white matter, most commonly due to chronic small vessel disease in patients of this age. There is evidence of lens surgery. There is mild maxillary sinus mucosal thickening. The mastoid air cells are clear. There are normal flow voids within the cerebral vessels. There is no suspicious calv arial lesion. No suspicious enhancing lesion is seen. IMPRESSION: 1. No acute intracranial finding or evidence of intracranial metastatic disease. 2. Chronic infarcts within the left greater than right cerebellar hemispheres. 3. Scattered foci of signal change within the cerebral white matter, most commonly due to chronic sma ll vessel disease in patients of this age. This is similar compared to the prior exam. Electronically signed by: Paty Santana MD (12/26/2020 2:41 PM) [id number]
== END ==
LOC: PETSC 08:46
PROVIDERS: ATTEND Radiology Radiation Oncology
DX: C34.90 Malignant neoplasm of unspecified part of unspecified bronchus or lung (principal); R91.8 Other nonspecific abnormal finding of lung field; J90 Pleural effusion, not elsewhere classified; I70.0 Atherosclerosis of aorta; K57.30 Diverticulosis of large intestine without perforation or abscess without bleeding; I63.9 Cerebral infarction, unspecified
CPT/HCPCS: 70553; 78815; A9552; A9575

== ENCOUNTER 2021-01-12 12:01 | Emergency (ER) | payer MEDICARE ==
[~2021-01-12] VITALS: Ht 175.3 cm; Wt 61.0 kg
[2021-01-12 16:10] LABS: BASO % 0 % (0-3); EOS # 0.2 x10^3/uL (0.0-0.7); EOS % 3 % (0-3); HEMATOCRIT 37.7 % (39.0-53.0); HEMOGLOBIN 12.7 g/dL (13.0-17.5); LYMPH # 1.1 x10^3/uL (1.0-4.8); LYMPH % 13 % (24-48); MEAN CORPUSCULAR HEMOGLOBIN 32 pg (25-35); MEAN CORPUSCULAR HGB CONC 34 g/dL (31-37); MEAN CORPUSCULAR VOLUME 95 fL (79-100); MONO # 1.2 x10^3/uL (0.0-1.1); MONO % 15 % (0-9); NEUT # 5.7 x10^3/uL (1.8-7.7); NEUT % 69 % (31-73); PLATELET COUNT 380 x10^3/uL (140-400); RED BLOOD COUNT 3.98 x10^6/uL (4.30-5.70); RED CELL DISTRIBUTION WIDTH 14.7 % (11.5-14.5); WHITE BLOOD COUNT 8.2 x10^3/uL (4.0-11.0)
[2021-01-12 16:12] LABS: BILIRUBIN,URINE NEGATIVE (NEG); CLARITY,URINE CLEAR; COLOR,URINE YELLOW; NITRITE,URINE NEGATIVE (NEG); PH,URINE 6.5 (<5.0-8.0); PROTEIN,URINE NEGATIVE (NEG-TRACE); UROBILINOGEN,URINE 0.2 mg/dL (0.2 mg/dL)
--- NOTE | 2021-01-12 16:16 | RAD ---
XR CHEST 1V 01/12/2021 3:55 PM INDICATION: Chest pain COMPARISON: 12/07/2020 TECHNIQUE: Portable frontal view of the chest is provided. FINDINGS: The cardiomediastinal silhouette is similar in appearance. Similar appearance of suspected left upper lobe atelectasis with volume loss in the left lung. Rounded masslike consolidation in the right [place] r region appears similar. No new airspace consolidation is noted. No pleural effusions, pulmonary vascular congestion or pneumothorax. No suspicious osseous abnormality. IMPRESSION: Aeration of the lungs appears similar to the prior examination. Electronically signed by: Suzette Adair MD (01/12/2021 4:13 PM) [id number]
[2021-01-12 16:22] LABS: BACTERIA,URINE 0 /HPF (0-FEW); RBC,URINE RARE /HPF (0-2); WBC,URINE 0 /HPF (0-4)
[2021-01-12 16:25] LABS: CALCIUM 8.6 mg/dL (8.5-10.1); CREATININE 0.8 mg/dL (0.7-1.3); GFR 95.8; POTASSIUM 5.2 mmol/L (3.5-5.1)
[2021-01-12 16:27] LABS: ALBUMIN 3.2 g/dL (3.4-5.0); ALBUMIN/GLOBULIN RATIO 0.9 (1.0-1.7); MAGNESIUM 2.2 mg/dL (1.8-2.4); TOTAL BILIRUBIN 0.3 mg/dL (0.2-1.0); TOTAL PROTEIN 6.6 g/dL (6.4-8.2)
[2021-01-12 16:35] LABS: CREATINE KINASE 50 U/L (39-308)
[2021-01-12] MEDS ORDERED: IOHEXOL 350 MG/ML 100 ML VIAL. IV ONE (17:30)
--- NOTE | 2021-01-12 17:38 | EKG ---
[facility] [address] [place] [address] Test Date: 2021-01-12 Test Time: 12:11:15 Pat Name: YASMIN DUNNE Department: Room: Gender: M [employer] Clerk: : [id number] Requested By: ROLAND YOUSSEF Order Number: [id number] Reading MD: Measurements Intervals [place] Rate: 68 P: 29 DC: 154 QRS: 29 QRSD: 82 T: 36 QT: 350 QTc: 372 Interpretive Statements SINUS RHYTHM QRS(T) CONTOUR ABNORMALITY CONSIDER ANTEROSEPTAL MYOCARDIAL DAMAGE POSSIBLY ABNORMAL ECG RI6.01 No previous ECG available for comparison
[2021-01-12] MEDS ORDERED: CONTRAST GIVEN. MC PRN (17:45)
[2021-01-12] MEDS ORDERED: IV NORMAL SALINE 1000ML BAG 1,000 ML IV ONE (18:00)
--- NOTE | 2021-01-12 18:21 | RAD ---
CTA CHEST INDICATION: soa, elevated d-dimer Comparison: PET/CT 12/26/2020. CT chest 12/07/2020. TECHNIQUE: Following the uneventful administration of intravenous contrast, 75 cc Omnipaque 350, axia l CT sections were obtained through the lungs and upper abdomen. Multiplanar reconstructions and MIP images were obtained. RS compliance statement: One or more of the following individualized dose reduction techniques were utilized for this examinat ion: 1. Automated exposure control 2. Adjustment of the mA and/or kV according to patient size 3. Use of iterative reconstruction technique FINDINGS: Pulmonary arteries: No evidence of pulmonary thromboembolic disease. Lungs and Airways: Complete left upper lobe atelectasis due to perihilar mass which encases and obstr ucts left upper lobe bronchovascular structures, previously left upper lobe is partially aerated. Right lower lobe spiculated mass measuring 3.9 x 3.6 cm previously measured 3.5 x 3.3 cm when measured in the same fashion. Stable 0.8 cm satellite nodule. Pleura: Increased small to moderate left pleural effusion. Heart and Mediastinum: The visualized thyroid is normal in size and attenuation. No pathologically en larged mediastinal lymph nodes. Normal cardiac size. Coronary artery atherosclerotic disease. Atheros clerosis of the thoracic aorta and branch vessels. Stenosis of the brachiocephalic and proximal less likely given arteries Abdomen: Limited images through the upper abdomen show no abnormality of the visualized organs. Bones and Soft Tissues: Degenerative changes of the spine. IMPRESSION: 1. No evidence of pulmonary thromboembolic disease. 2. Complete left upper lobe atelectasis due to perihilar mass, previously the left upper lobe was par tially aerated. 3. Increasing size of right lower lobe spiculated mass. 4. Increased small to moderate left pleural effusion Electronically signed by: Rafa Saavedra MD (01/12/2021 6:19 PM) [facility]
[2021-01-12 19:00] VITALS: BP 174/70
[2021-01-12] MEDS ORDERED: VENTOLIN HFA18 GM INH (19:11)
--- NOTE | 2021-01-12 19:12 | ED.ADGEN ---
Past Medical History Past Medical History: Alcoholism, CVA, High Cholesterol, Hypertension, Other Additional Past Medical Histor: CIRRHOSIS,"CLOGGED ARTERIES", CVA 2018-[employer] [place] Past Surgical History: Other Additional Past Surgical Histo: L HAND Smoking Status: Current Every Day Smoker Alcohol Use: Occasionally Drug Use: None General Adult EDM: Chief Complaint: SHORTNESS OF BREATH HPI: HPI: Patient is a 70 year old male, accompanied by his daughter, who presents to the emergency room with complaints of increased shortness of breath over the last 5 days and intermittent chest pain. Patient states he took a dose of Protonix on Tuesday and it caused him to have diarrhea so he stopped taking it. Patient currently denies any chest pain. He reports that he was recently diagnosed with lung cancer and he is supposed to start radiation tomorrow and he is supposed to start chemo after that. He states that his oncologist Dr. Raymond sent him to the ER to make sure that he does not have a blood clot. Patient states that his left lung has practically collapsed. He denies any fever, nausea, vomiting, abdominal pain, or headache at this time. Patient denies any known exposure to COVID-19. He reports that he has received both of his COVID-19 immunizations. Review of Systems: Review of Systems: Complete ROS is negative unless otherwise noted in HPI. Current Medications: Current Medications Medications (Trade) Dose Ordered Sig/Arun Start Time Stop Time Status Last Admin Dose Admin Info (CONTRAST GIVEN -- Rx MONITORING) 1 each PRN DAILY PRN 01/12/21 17:45 01/12/21 19:56 DC Iohexol (Omnipaque 350 Mg/ml) 75 ml 1X ONCE 01/12/21 17:30 01/12/21 17:31 DC 01/12/21 17:52 75 ML Sodium Chloride 1,000 ml @ 1,000 mls/hr 1X ONCE 01/12/21 18:00 01/12/21 18:59 DC 01/12/21 18:28 1,000 MLS/HR Allergies: Allergies: Allergies Coded Allergies Type Severity Reaction Last Updated Verified No Known Drug Allergies 03/02/19 No Physical Exam: PE: See Above Constitutional: Well developed, well nourished, no acute distress, frail appearance HENT: Normocephalic, atraumatic, bilateral external ears normal, nose normal. [] Eyes: PERRLA, EOMI, conjunctiva normal, no discharge. [] Neck: Normal range of motion, no stridor. [] Cardiovascular:Heart rate regular rhythm Lungs & Thorax: Respirations even and unlabored, no retractions, no respiratory distress, lung sounds diminished in left upper lobe and right lower lobe, o therwise clear, no wheezes Abdomen: soft, no tenderness Skin: Warm, dry, no erythema, no rash. [] Extremities: No cyanosis, ROM intact, no edema. [] Neurologic: Alert and oriented X 3, normal motor, normal sensory, no focal deficits noted. [] Psychologic: Affect normal, judgement normal, mood normal. [] Current Patient Data: Labs: Laboratory Tests Test 01/12/21 12:30 01/12/21 14:22 White Blood Count 8.2 x10^3/uL (4.0-11.0) Red Blood Count 3.98 x10^6/uL (4.30-5.70) L Hemoglobin 12.7 g/dL (13.0-17.5) L Hematocrit 37.7 % (39.0-53.0) L Mean Corpuscular Volume 95 fL (79-100) Mean Corpuscular Hemoglobin 32 pg (25-35) Mean Corpuscular Hemoglobin Concent 34 g/dL (31-37) Red Cell Distribution Width 14.7 % (11.5-14.5) H Platelet Count 380 x10^3/uL (140-400) Neutrophils (%) (Auto) 69 % (31-73) Lymphocytes (%) (Auto) 13 % (24-48) L Monocytes (%) (Auto) 15 % (0-9) H Eosinophils (%) (Auto) 3 % (0-3) Basophils (%) (Auto) 0 % (0-3) Neutrophils # (Auto) 5.7 x10^3/uL (1.8-7.7) Lymphocytes # (Auto) 1.1 x10^3/uL (1.0-4.8) Monocytes # (Auto) 1.2 x10^3/uL (0.0-1.1) H Eosinophils # (Auto) 0.2 x10^3/uL (0.0-0.7) Basophils # (Auto) 0.0 x10^3/uL (0.0-0.2) D-Dimer (Melinda) 1.51 ug/mlFEU (0.00-0.50) H Sodium Level 135 mmol/L (136-145) L Potassium Level 5.2 mmol/L (3.5-5.1) H Chloride Level 100 mmol/L (98-107) Carbon Dioxide Level 28 mmol/L (21-32) Anion Gap 7 (6-14) Blood Urea Nitrogen 7 mg/dL (8-26) L Creatinine 0.8 mg/dL (0.7-1.3) Estimated GFR (Cockcroft-Gault) 95.8 BUN/Creatinine Ratio 9 (6-20) Glucose Level 81 mg/dL (70-99) Calcium Level 8.6 mg/dL (8.5-10.1) Magnesium Level 2.2 mg/dL (1.8-2.4) Total Bilirubin 0.3 mg/dL (0.2-1.0) Aspartate Amino Transferase (AST) 15 U/L (15-37) Alanine Aminotransferase (ALT) 15 U/L (16-63) L Alkaline Phosphatase 58 U/L (46-116) Creatine Kinase 50 U/L (39-308) Creatine Kinase MB (Mass) 0.6 ng/mL (0.0-3.6) Creatine Kinase MB Relative Index % (0-4) Troponin I Quantitative < 0.017 ng/mL (0.000-0.055) FL-Nls-O-Type Natriuretic Peptide 167 pg/mL (0-124) H Total Protein 6.6 g/dL (6.4-8.2) Albumin 3.2 g/dL (3.4-5.0) L Albumin/Globulin Ratio 0.9 (1.0-1.7) L Lipase 111 U/L (73-393) Urine Collection Type Void Urine Color Yellow Urine Clarity Clear Urine pH 6.5 (<5.0-8.0) Urine Specific Amado 1.010 (1.000-1.030) Urine Protein Negative mg/dL (NEG-TRACE) Urine Glucose (UA) Negative mg/dL (NEG) Urine Ketones (Stick) Negative mg/dL (NEG) Urine Blood Trace (NEG) Urine Nitrite Negative (NEG) Urine Bilirubin Negative (NEG) Urine Urobilinogen Dipstick 0.2 mg/dL (0.2 mg/dL) Urine Leukocyte Esterase Negative (NEG) Urine RBC Rare /HPF (0-2) Urine WBC 0 /HPF (0-4) Urine Squamous Epithelial Cells None /LPF Urine Bacteria 0 /HPF (0-FEW) Laboratory Tests 01/12/21 12:30 Laboratory Tests 01/12/21 12:30 Vital Signs: Vital Signs Date Time Temp Pulse Resp B/P (MAP) Pulse Ox O2 Delivery O2 Flow Rate FiO2 01/12/21 19:00 68 174/70 (104) 99 Room Air 01/12/21 12:20 97.3 24 97.3 EKG: EK-sinus rhythm with QRS(T) abnormality, consider anteroseptal myocardial damage, rate 68, no STEMI, read by Dr. Abdul [] Heart Score: C/O Chest Pain: Yes HEART Score for Chest Pain: HEART Score for Chest Pain Response (Comments) Value History Slighlty/Non-Suspicious 0 ECG Normal 0 Age > 65 2 Risk Factors >3 Risk Factors or Hx CAD 2 Troponin < Normal Limit 0 Total 4 Risk Factors: Risk Factors: DM, Current or recent (<one month) smoker, HTN, HLP, family history of CAD, obesity. Risk Scores: Score 0 - 3: 2.5% MACE over next 6 weeks - Discharge Home Score 4 - 6: 20.3% MACE over next 6 weeks - Admit for Clinical Observation Score 7 - 10: 72.7% MACE over next 6 weeks - Early Invasive Strategies Radiology/Procedures: Radiology/Procedures: PROCEDURE: CHEST AP ONLY XR CHEST 1V 01/12/2021 3:55 PM INDICATION: Chest pain COMPARISON: 12/07/2020 TECHNIQUE: Portable frontal view of the chest is provided. FINDINGS: The cardiomediastinal silhouette is similar in appearance. Similar appearance of suspected left upper lobe atelectasis with volume loss in the left lung. Rounded masslike consolidation in the right hilar region appears similar. No new airspace consolidation is noted. No pleural effusions, pulmonary vascular congestion or pneumothorax. No suspicious osseous abnormality. IMPRESSION: Aeration of the lungs appears similar to the prior examination. Electronically signed by: Suzette Adair MD (01/12/2021 4:13 PM) [id number] PROCEDURE: CT ANGIOGRAPHY CHEST CTA CHEST INDICATION: soa, elevated d-dimer Comparison: PET/CT 12/26/2020. CT chest 12/07/2020. TECHNIQUE: Following the uneventful administration of intravenous contrast, 75 cc Omnipaque 350, axial CT sections were obtained through the lungs and upper abdomen. Multiplanar reconstructions and MIP images were obtained. RS compliance statement: One or more of the following individualized dose reduction techniques were utilized for this examination: 1. Automated exposure control 2. Adjustment of the mA and/or kV according to patient size 3. Use of iterative reconstruction technique FINDINGS: Pulmonary arteries: No evidence of pulmonary thromboembolic disease. Lungs and Airways: Complete left upper lobe atelectasis due to perihilar mass which encases and obstructs left upper lobe bronchovascular structures, previously left upper lobe is partially aerated. Right lower lobe spiculated mass measuring 3.9 x 3.6 cm previously measured 3.5 x 3.3 cm when measured in the same fashion. Stable 0.8 cm satellite nodule. Pleura: Increased small to moderate left pleural effusion. Heart and Mediastinum: The visualized thyroid is normal in size and attenuation. No pathologically enlarged mediastinal lymph nodes. Normal cardiac size. Coronary artery atherosclerotic disease. Atherosclerosis of the thoracic aorta and branch vessels. Stenosis of the brachiocephalic and proximal less likely given arteries Abdomen: Limited images through the upper abdomen show no abnormality of the visualized organs. Bones and Soft Tissues: Degenerative changes of the spine. IMPRESSION: 1. No evidence of pulmonary thromboembolic disease. 2. Complete left upper lobe atelectasis due to perihilar mass, previously the left upper lobe was partially aerated. 3. Increasing size of right lower lobe spiculated mass. 4. Increased small to moderate left pleural effusion Electronically signed by: Rafa Saavedra MD (01/12/2021 6:19 PM) [facility] [] Course & Med Decision Making: Course & Med Decision Making Pertinent Labs and Imaging studies reviewed. (See chart for details) [id number] spoke with Dr. Healy, Dr. Raymond's partner who is on-call, about the patient. Discussed the changes that were found on the patient's CT of his lungs. Per Dr. Healy make sure that the patient has albuterol to use every 4-6 hours at home. Patient needs to attend radiation tomorrow as radiation is a treatment needed to treat the condition. Advised him that there was no evidence of a blood clot. Patient's oxygen saturation is above 90% throughout his ER stay. His breathing is nonlabored, vital signs are stable, CBC revealed a hemoglobin of 12.7, hematocrit of 37.7 otherwise unremarkable; patient's D-dimer was elevated at 1.51; CMP revealed sodium 135, potassium of 5.2, BNP of 167, CK index and troponin were not elevated; UA revealed no acute findings. Chest x- ray did not reveal any significant changes from previous chest x-ray. The CT of the patient's chest did reveal some increase in tumor size there was no evidence of blood clot. I discussed these findings and my conversation with with the patient and his son. I encouraged the patient to attend his first radiation appointment tomorrow as planned. Patient stated that he could use a refill of his albuterol. I sent a prescription for an albuterol MDI to his pharmacy electronically. Patient verbalized an understanding of home care, medications, follow-up, and re turn to ED instructions and was in agreement with the plan of care. While in the emergency department the patient and his family were upset with the amount of time that it had taken to be seen in the ER. I apologized for the delay but reassured him that his care is appropriate. [] I oversaw on the above date of service of this patient and discussed the care with the PANTRY CHEF. I agree with the findings, plan of care, and disposition as documented. Electronically signed, Prince Toro, DO Critical Care Time This patient required critical care. Due to the fact that the patient required a significant amount of one on one physician - patient contact time, ordering and review of studies, arranging urgent treatment with development of a management plan, evaluation of patients response to treatment with frequent reassessments, and discussions with other providers this patient required 35 minutes of critical care time. Critical care time was indicated due to the inherent instability and/or potential for instability in this patient. The critical care time that is allocated to this patient is above and beyond any time spent on any other billable procedures performed on this patient. Dragon Disclaimer: Thiago Disclaimer: This electronic medical record was generated, in whole or in part, using a voice recognition dictation system. Departure Departure Impression: Primary Impression: Mass of left lung Additional Impression: Shortness of breath Disposition: HOME / SELF CARE / HOMELESS Condition: STABLE Referrals: DYANA VERGARA- (PCP) Patient Instructions: Shortness of Breath, [id number] Additional Instructions: Fill the prescription and use it as directed. Follow-up with Dr. Raymond in 1-2 days, return to the ER if your symptoms worsen or fever develops. Scripts Albuterol Sulfate (VENTOLIN HFA INHALER) 18 Gm Hfa.aer.ad 2 PUFF INH Q4HRS PRN for WHEEZING for 30 Days, #1 INHALER 0 Refills Prov: ROLAND YOUSSEF APRN 01/12/21 Problem Qualifiers ROLAND YOUSSEF APRN January 12, 2021 19:12 PRINCE TORO DO January 16, 2021 04:36
== END 2021-01-12 19:10 | disposition home or self-care (01) ==
LOC: ER 12:01
DX: R91.8 Other nonspecific abnormal finding of lung field (principal); R06.02 Shortness of breath; R07.89 Other chest pain; I10 Essential (primary) hypertension; E78.00 Pure hypercholesterolemia, unspecified; F17.200 Nicotine dependence, unspecified, uncomplicated; Z86.73 Personal history of transient ischemic attack (TIA), and cerebral infarction without residual deficits
CPT/HCPCS: 36415; 71045; 71275; 80053; 81001; 82553; 83690; 83735; 83880; 84484; 85025; 85379; 93005; 96360; 99285; J7030; Q9967

== ENCOUNTER 2021-01-16 10:00 | Outpatient (CLI) | payer MEDICARE ==
[~2021-01-16] VITALS: Ht 175.3 cm; Wt 61.4 kg
[~2021-01-16 10:00] MED LIST changes: +VENTOLIN HFA18 GM INH
[2021-01-16] MEDS ORDERED: ceFAZolin SODIUM IV Push 1 GM VIAL. IVP ONE ×3 (10:15→11:30)
[2021-01-16 10:46] VITALS: BP 134/65
[2021-01-16 10:46] LABS: PROTHROMBIN TIME PATIENT 12.7 SEC (11.7-14.0)
[2021-01-16] MEDS ORDERED: HEPARIN PF 500 UNIT/5 ML DISP.SYRIN. IVP ONE ×3 (11:10→11:30)
[2021-01-16] MEDS ORDERED: LIDOCAINE 2%/EPI 1:100,000 20 ML VIAL. ONE (11:10)
[2021-01-16] MEDS ORDERED: MIDAZOLAM HCL/PF 5 MG/5 ML VIAL. ONE (11:11)
[2021-01-16] MEDS ORDERED: fentaNYL PF VIAL 100 MCG/2 ML VIAL ONE (11:11)
[2021-01-16] MEDS ORDERED: LIDOCAINE 2%/EPI 1:100,000 20 ML VIAL. IJ ONE (11:30)
--- NOTE | 2021-01-16 11:54 | PDOC ---
MODERATE SEDATION ASSESSMENT RISKS/ALTERNATIVES Risks/Alternatives Risks and alternatives of this type of sedation and procedure discussed with: RISK/ALTERNATIVES: Patient H & P ON CHART H & P H & P on chart and reviewed for co-morbid conditions and appropriate labs. H&P ON CHART: Yes STATUS PREG STATUS ASSESSED: Yes MEDS/ALLERGIES REVIEWED Meds/Allergies Reviewed Medications and Allergies including time and route of recently administered narcotics and sedatives. MEDS/ALLERGIES REVIEWED: Yes ASA RATING ASA RATING: II AIRWAY ASSESSMENT Airway Assessment Airway patency, oral function limitations, presence of caps, crowns, dentures, partials, and ability to extend neck assessed. AIRWAY ASSESSMENT: Yes MALLAMPATI SCORE MALLAMPATI SCORE: II PRE-SEDATION ASSESSMENT PRE-SEDATION ASSESSMENT: Yes JAKE HARRIS MD January 16, 2021 11:54
--- NOTE | 2021-01-16 11:55 | PDOC ---
BRIEF OPERATIVE NOTE Pre-Op Diagnosis lung cancer Post-Op Diagnosis same Procedure Performed Port Surgeon Nancy ORTIZ none Anesthesia Type: Conscious Sedation Specimens Obtained none Findings Right IJ port suitable for use Complications no immediate JAKE HARRIS MD January 16, 2021 11:54
[2021-01-16 12:00] VITALS: BP 131/58
[2021-01-16 12:15] VITALS: BP 127/59
[2021-01-16 12:30] VITALS: BP 125/66
--- NOTE | 2021-01-16 12:40 | NUR ---
Discharge Note: YASMIN DUNNE Discharge instructions and discharge home medications reviewed with Patient and his daughter and a copy given. All questions have been answered and understanding verbalized. The following instructions and handouts were given: implanted port instructions Discontinued lines and drains: Peripheral IV intact. Patient discharged to Home or Self Care withFamily Sal[place] Ambulated
--- NOTE | 2021-01-16 15:02 | RAD ---
Procedure: Port-A-Cath placement. Clinical Indication: Adult male requiring chemotherapy for lung cancer Sedation: Local anesthesia only. Antibiotics: Antibiotic was administered intravenously within 1 hour of the procedure start time. Exposure: Kerma-Area Product: 0.4 mGycm2 Sterility: All elements of maximal sterile barrier technique including the use of a cap, mask, steril e gown, sterile gloves, large sterile sheet, appropriate hand hygiene, and 2% chlorhexidine for cutan eous antisepsis (or acceptable alternative antiseptic per current guidelines) were followed for this procedure. Consent: The procedure was explained in its entirety to the patient or the patients designated repres entative by a member of the treatment team, including a discussion of the risks, benefits and commonl y accepted alternatives to the procedure, as well as the expected consequences of not performing the procedure. Discussion of the risks included, but was not limited to, those that are most frequent an d those that are rare but possibly severe or life-threatening, as well as the possibility of unforese en complications. Technique and Findings: Following informed consent, the patient was prepped and draped in the usual s terile fashion. All elements of maximum sterile barrier technique were employed. 2% lidocaine was us ed to achieve local anesthesia over the right neck. A small dermatotomy was made, and, under ultrasou nd guidance, a 21-gauge micropuncture needle was used to gain access to the right internal jugular ve in. The vein was seen to be widely patent. A hard copy ultrasound image was recorded. The needle was exchanged over a wire for a transitional sheath which was used to facilitate placement of an Amplatz wire within the IVC. The skin over the right anterior chest wall was then copiously anesthetized wit h 2% lidocaine plus epinephrine. An short incision was made using a #15 blade and blunt dissection te chniques were used to create a subcutaneous pocket for the port. The port was then tunneled subcutane ously towards the neck dermatotomy. The transitional sheath was exchanged for an 8 Panamanian peel-away s ian, which was used to deploy the port under fluoroscopic control such that the distal tip resided at the cavoatrial junction. The port was then accessed, and flushed and aspirated with ease. The subc utaneous pocket was then closed with deep interrupted and running subcuticular sutures utilizing 4-0 Vicryl. Dermabond was used to close the neck dermatotomy. Patient tolerated the procedure well and le ft the radiology department in stable condition. Impression: 1. Successful placement of a right IJ Port-A-Cath as described. Electronically signed by: Taurus Cruz MD (01/16/2021 3:00 PM) [id number]
== END 2021-01-16 12:47 | disposition home or self-care (01) ==
LOC: INTRAD 10:00
PROVIDERS: ATTEND Physician Assistant
DX: Z45.2 Encounter for adjustment and management of vascular access device (principal); C34.90 Malignant neoplasm of unspecified part of unspecified bronchus or lung; I25.10 Atherosclerotic heart disease of native coronary artery without angina pectoris; I10 Essential (primary) hypertension; F17.210 Nicotine dependence, cigarettes, uncomplicated; Z79.899 Other long term (current) drug therapy; Z98.890 Other specified postprocedural states; Z86.73 Personal history of transient ischemic attack (TIA), and cerebral infarction without residual deficits; Z72.89 Other problems related to lifestyle; Z82.49 Family history of ischemic heart disease and other diseases of the circulatory system; Z83.3 Family history of diabetes mellitus
CPT/HCPCS: 36415; 36561; 76937; 77001; 85610; C1769; C1788; C1892; J0690; J1642; J3490

== ENCOUNTER → 2021-01-19 | Outpatient (CLI) | payer MEDICARE ==
[2021-01-16 12:30] VITALS: BP 125/66
[2021-01-19 09:02] LABS: BASO % 0 % (0-3); EOS # 0.3 x10^3/uL (0.0-0.7); EOS % 3 % (0-3); HEMATOCRIT 35.9 % (39.0-53.0); HEMOGLOBIN 12.1 g/dL (13.0-17.5); LYMPH % 11 % (24-48); MEAN CORPUSCULAR HEMOGLOBIN 32 pg (25-35); MEAN CORPUSCULAR HGB CONC 34 g/dL (31-37); MEAN CORPUSCULAR VOLUME 94 fL (79-100); MONO # 1.3 x10^3/uL (0.0-1.1); MONO % 14 % (0-9); NEUT # 6.4 x10^3/uL (1.8-7.7); NEUT % 72 % (31-73); PLATELET COUNT 421 x10^3/uL (140-400); RED BLOOD COUNT 3.82 x10^6/uL (4.30-5.70); RED CELL DISTRIBUTION WIDTH 14.5 % (11.5-14.5); WHITE BLOOD COUNT 8.9 x10^3/uL (4.0-11.0)
[2021-01-19 09:16] LABS: CALCIUM 8.3 mg/dL (8.5-10.1); CREATININE 0.8 mg/dL (0.7-1.3); GFR 95.8; POTASSIUM 4.1 mmol/L (3.5-5.1)
[2021-01-19 09:22] LABS: ALBUMIN 2.9 g/dL (3.4-5.0); ALBUMIN/GLOBULIN RATIO 0.7 (1.0-1.7); TOTAL BILIRUBIN 0.4 mg/dL (0.2-1.0); TOTAL PROTEIN 6.8 g/dL (6.4-8.2)
== END ==
LOC: ONCLAB 08:25
PROVIDERS: ATTEND Internal Medicine Hematology & Oncology
DX: C34.12 Malignant neoplasm of upper lobe, left bronchus or lung (principal)
CPT/HCPCS: 36415; 80053; 85025

== ENCOUNTER → 2021-01-26 | Outpatient (CLI) | payer MEDICARE ==
[2021-01-16 12:30] VITALS: BP 125/66
[2021-01-26 09:47] LABS: BASO % 0 % (0-3); EOS # 0.2 x10^3/uL (0.0-0.7); EOS % 3 % (0-3); HEMATOCRIT 33.4 % (39.0-53.0); HEMOGLOBIN 11.5 g/dL (13.0-17.5); LYMPH # 0.6 x10^3/uL (1.0-4.8); LYMPH % 11 % (24-48); MEAN CORPUSCULAR HEMOGLOBIN 32 pg (25-35); MEAN CORPUSCULAR HGB CONC 34 g/dL (31-37); MEAN CORPUSCULAR VOLUME 93 fL (79-100); MONO # 0.7 x10^3/uL (0.0-1.1); MONO % 12 % (0-9); NEUT % 73 % (31-73); PLATELET COUNT 360 x10^3/uL (140-400); RED BLOOD COUNT 3.61 x10^6/uL (4.30-5.70); RED CELL DISTRIBUTION WIDTH 14.1 % (11.5-14.5); WHITE BLOOD COUNT 5.4 x10^3/uL (4.0-11.0)
[2021-01-26 09:52] LABS: CALCIUM 8.5 mg/dL (8.5-10.1); CREATININE 0.9 mg/dL (0.7-1.3); GFR 83.7; POTASSIUM 4.4 mmol/L (3.5-5.1)
[2021-01-26 09:58] LABS: ALBUMIN/GLOBULIN RATIO 0.8 (1.0-1.7); TOTAL BILIRUBIN 0.6 mg/dL (0.2-1.0); TOTAL PROTEIN 6.9 g/dL (6.4-8.2)
== END ==
LOC: ONCLAB 09:17
PROVIDERS: ATTEND Internal Medicine Hematology & Oncology
DX: C34.12 Malignant neoplasm of upper lobe, left bronchus or lung (principal)
CPT/HCPCS: 36415; 80053; 85025

== ENCOUNTER → 2021-02-03 | Outpatient (CLI) | payer MEDICARE ==
[2021-01-16 12:30] VITALS: BP 125/66
[2021-02-03 11:05] LABS: BASO % 0 % (0-3); EOS % 1 % (0-3); HEMATOCRIT 33.1 % (39.0-53.0); HEMOGLOBIN 11.3 g/dL (13.0-17.5); LYMPH # 0.4 x10^3/uL (1.0-4.8); LYMPH % 13 % (24-48); MEAN CORPUSCULAR HEMOGLOBIN 32 pg (25-35); MEAN CORPUSCULAR HGB CONC 34 g/dL (31-37); MEAN CORPUSCULAR VOLUME 93 fL (79-100); MONO # 0.7 x10^3/uL (0.0-1.1); MONO % 23 % (0-9); NEUT # 1.9 x10^3/uL (1.8-7.7); NEUT % 63 % (31-73); PLATELET COUNT 312 x10^3/uL (140-400); RED BLOOD COUNT 3.56 x10^6/uL (4.30-5.70); RED CELL DISTRIBUTION WIDTH 14.3 % (11.5-14.5)
[2021-02-03 11:11] LABS: CALCIUM 8.7 mg/dL (8.5-10.1); CREATININE 0.8 mg/dL (0.7-1.3); GFR 95.8; POTASSIUM 4.2 mmol/L (3.5-5.1)
[2021-02-03 11:16] LABS: ALBUMIN 3.1 g/dL (3.4-5.0); ALBUMIN/GLOBULIN RATIO 0.8 (1.0-1.7); TOTAL BILIRUBIN 0.4 mg/dL (0.2-1.0); TOTAL PROTEIN 6.9 g/dL (6.4-8.2)
[2021-02-03 13:10] LABS: % BANDS 5 % (0-9); % LYMPHS 12 % (24-48); % MONOS 24 % (0-10); % SEGS 59 % (35-66); PLT ESTIMATE ADEQUATE (ADEQUATE)
== END ==
LOC: ONCLAB 08:00
PROVIDERS: ATTEND Internal Medicine Hematology & Oncology
DX: C34.12 Malignant neoplasm of upper lobe, left bronchus or lung (principal)
CPT/HCPCS: 36415; 80053; 85007; 85025

== ENCOUNTER → 2021-02-09 | Outpatient (CLI) | payer MEDICARE ==
[2021-01-16 12:30] VITALS: BP 125/66
[2021-02-09 12:19] LABS: BASO % 1 % (0-3); EOS % 1 % (0-3); HEMATOCRIT 35.2 % (39.0-53.0); HEMOGLOBIN 12.1 g/dL (13.0-17.5); LYMPH # 0.4 x10^3/uL (1.0-4.8); LYMPH % 11 % (24-48); MEAN CORPUSCULAR HEMOGLOBIN 32 pg (25-35); MEAN CORPUSCULAR HGB CONC 34 g/dL (31-37); MEAN CORPUSCULAR VOLUME 93 fL (79-100); MONO # 0.9 x10^3/uL (0.0-1.1); MONO % 28 % (0-9); NEUT % 60 % (31-73); PLATELET COUNT 354 x10^3/uL (140-400); RED BLOOD COUNT 3.81 x10^6/uL (4.30-5.70); RED CELL DISTRIBUTION WIDTH 14.4 % (11.5-14.5); WHITE BLOOD COUNT 3.3 x10^3/uL (4.0-11.0)
[2021-02-09 12:37] LABS: CREATININE 0.8 mg/dL (0.7-1.3); GFR 95.8; POTASSIUM 4.4 mmol/L (3.5-5.1)
[2021-02-09 12:43] LABS: ALBUMIN 3.1 g/dL (3.4-5.0); ALBUMIN/GLOBULIN RATIO 0.8 (1.0-1.7); TOTAL BILIRUBIN 0.4 mg/dL (0.2-1.0)
== END ==
LOC: ONCLAB 11:46
PROVIDERS: ATTEND Internal Medicine Hematology & Oncology
DX: C34.12 Malignant neoplasm of upper lobe, left bronchus or lung (principal)
CPT/HCPCS: 36415; 80053; 85025

== ENCOUNTER → 2021-02-16 | Outpatient (CLI) | payer MEDICARE ==
[2021-02-16 11:42] LABS: BASO % 0 % (0-3); EOS # 0.1 x10^3/uL (0.0-0.7); EOS % 1 % (0-3); HEMATOCRIT 34.9 % (39.0-53.0); HEMOGLOBIN 11.8 g/dL (13.0-17.5); LYMPH # 0.3 x10^3/uL (1.0-4.8); LYMPH % 8 % (24-48); MEAN CORPUSCULAR HEMOGLOBIN 32 pg (25-35); MEAN CORPUSCULAR HGB CONC 34 g/dL (31-37); MEAN CORPUSCULAR VOLUME 93 fL (79-100); MONO # 0.4 x10^3/uL (0.0-1.1); MONO % 10 % (0-9); NEUT # 3.5 x10^3/uL (1.8-7.7); NEUT % 81 % (31-73); PLATELET COUNT 282 x10^3/uL (140-400); RED BLOOD COUNT 3.74 x10^6/uL (4.30-5.70); RED CELL DISTRIBUTION WIDTH 14.7 % (11.5-14.5); WHITE BLOOD COUNT 4.3 x10^3/uL (4.0-11.0)
[2021-02-16 11:51] LABS: CALCIUM 8.7 mg/dL (8.5-10.1); CREATININE 0.9 mg/dL (0.7-1.3); GFR 83.7; POTASSIUM 4.3 mmol/L (3.5-5.1)
[2021-02-16 11:59] LABS: ALBUMIN 3.2 g/dL (3.4-5.0); ALBUMIN/GLOBULIN RATIO 0.9 (1.0-1.7); TOTAL BILIRUBIN 0.4 mg/dL (0.2-1.0); TOTAL PROTEIN 6.9 g/dL (6.4-8.2)
[2021-02-16 12:57] LABS: % BANDS 6 % (0-9); % EOS 2 % (0-5); % LYMPHS 4 % (24-48); % MONOS 9 % (0-10); % SEGS 79 % (35-66); PLT ESTIMATE ADEQUATE (ADEQUATE)
== END ==
LOC: ONCLAB 09:52
PROVIDERS: ATTEND Internal Medicine Hematology & Oncology
DX: C34.12 Malignant neoplasm of upper lobe, left bronchus or lung (principal)
CPT/HCPCS: 36415; 80053; 85007; 85025

== ENCOUNTER → 2021-02-23 | Outpatient (CLI) | payer MEDICARE ==
[2021-02-23 11:53] LABS: CALCIUM 8.6 mg/dL (8.5-10.1); CREATININE 0.8 mg/dL (0.7-1.3); GFR 95.8; POTASSIUM 4.1 mmol/L (3.5-5.1)
[2021-02-23 11:54] LABS: BASO % 1 % (0-3); EOS % 2 % (0-3); HEMATOCRIT 32.9 % (39.0-53.0); HEMOGLOBIN 11.3 g/dL (13.0-17.5); LYMPH # 0.2 x10^3/uL (1.0-4.8); LYMPH % 12 % (24-48); MEAN CORPUSCULAR HEMOGLOBIN 32 pg (25-35); MEAN CORPUSCULAR HGB CONC 34 g/dL (31-37); MEAN CORPUSCULAR VOLUME 94 fL (79-100); MONO # 0.4 x10^3/uL (0.0-1.1); MONO % 20 % (0-9); NEUT # 1.3 x10^3/uL (1.8-7.7); NEUT % 66 % (31-73); PLATELET COUNT 211 x10^3/uL (140-400); RED BLOOD COUNT 3.51 x10^6/uL (4.30-5.70); RED CELL DISTRIBUTION WIDTH 14.8 % (11.5-14.5)
[2021-02-23 12:00] LABS: ALBUMIN 3.3 g/dL (3.4-5.0); ALBUMIN/GLOBULIN RATIO 0.9 (1.0-1.7); TOTAL BILIRUBIN 0.4 mg/dL (0.2-1.0); TOTAL PROTEIN 6.8 g/dL (6.4-8.2)
== END ==
LOC: ONCLAB 10:49
PROVIDERS: ATTEND Physician Assistant
DX: C34.12 Malignant neoplasm of upper lobe, left bronchus or lung (principal)
CPT/HCPCS: 36415; 80053; 85025

== ENCOUNTER → 2021-03-02 | Outpatient (CLI) | payer MEDICARE ==
[2021-03-02 11:42] LABS: BASO % 0 % (0-3); EOS % 0 % (0-3); HEMATOCRIT 32.8 % (39.0-53.0); HEMOGLOBIN 11.2 g/dL (13.0-17.5); LYMPH # 0.3 x10^3/uL (1.0-4.8); LYMPH % 10 % (24-48); MEAN CORPUSCULAR HEMOGLOBIN 32 pg (25-35); MEAN CORPUSCULAR HGB CONC 34 g/dL (31-37); MEAN CORPUSCULAR VOLUME 94 fL (79-100); MONO # 0.8 x10^3/uL (0.0-1.1); MONO % 24 % (0-9); NEUT # 2.2 x10^3/uL (1.8-7.7); NEUT % 66 % (31-73); PLATELET COUNT 198 x10^3/uL (140-400); RED BLOOD COUNT 3.48 x10^6/uL (4.30-5.70); RED CELL DISTRIBUTION WIDTH 15.3 % (11.5-14.5); WHITE BLOOD COUNT 3.4 x10^3/uL (4.0-11.0)
[2021-03-02 11:52] LABS: CALCIUM 8.6 mg/dL (8.5-10.1); CREATININE 0.7 mg/dL (0.7-1.3); GFR 111.8; POTASSIUM 3.8 mmol/L (3.5-5.1)
[2021-03-02 11:59] LABS: ALBUMIN 3.3 g/dL (3.4-5.0); TOTAL BILIRUBIN 0.4 mg/dL (0.2-1.0); TOTAL PROTEIN 6.7 g/dL (6.4-8.2)
== END ==
LOC: ONCLAB 09:47
PROVIDERS: ATTEND Internal Medicine Hematology & Oncology
DX: C34.12 Malignant neoplasm of upper lobe, left bronchus or lung (principal)
CPT/HCPCS: 36415; 80053; 85025

== ENCOUNTER → 2021-03-11 | Outpatient (CLI) | payer MEDICARE ==
[2021-03-11 12:58] LABS: BASO % 1 % (0-3); EOS % 1 % (0-3); HEMATOCRIT 32.7 % (39.0-53.0); HEMOGLOBIN 11.2 g/dL (13.0-17.5); LYMPH # 0.4 x10^3/uL (1.0-4.8); LYMPH % 18 % (24-48); MEAN CORPUSCULAR HEMOGLOBIN 33 pg (25-35); MEAN CORPUSCULAR HGB CONC 34 g/dL (31-37); MEAN CORPUSCULAR VOLUME 96 fL (79-100); MONO # 0.6 x10^3/uL (0.0-1.1); MONO % 31 % (0-9); NEUT # 0.9 x10^3/uL (1.8-7.7); NEUT % 49 % (31-73); PLATELET COUNT 239 x10^3/uL (140-400); RED BLOOD COUNT 3.41 x10^6/uL (4.30-5.70); RED CELL DISTRIBUTION WIDTH 16.7 % (11.5-14.5)
[2021-03-11 13:12] LABS: CALCIUM 8.6 mg/dL (8.5-10.1); CREATININE 0.8 mg/dL (0.7-1.3); GFR 95.8; POTASSIUM 4.4 mmol/L (3.5-5.1)
[2021-03-11 13:19] LABS: ALBUMIN 3.1 g/dL (3.4-5.0); ALBUMIN/GLOBULIN RATIO 0.9 (1.0-1.7); TOTAL BILIRUBIN 0.3 mg/dL (0.2-1.0); TOTAL PROTEIN 6.7 g/dL (6.4-8.2)
[2021-03-11 16:30] LABS: % EOS 2 % (0-5); % LYMPHS 12 % (24-48); % MONOS 25 % (0-10); % SEGS 61 % (35-66)
[2021-03-11 16:31] LABS: PLT ESTIMATE ADEQUATE (ADEQUATE)
== END ==
LOC: ONCLAB 12:27
PROVIDERS: ATTEND Internal Medicine Hematology & Oncology
DX: C34.12 Malignant neoplasm of upper lobe, left bronchus or lung (principal)
CPT/HCPCS: 36415; 80053; 85007; 85025

== ENCOUNTER → 2021-03-20 | Outpatient (CLI) | payer MEDICARE ==
[2021-03-20 14:43] LABS: BASO % 1 % (0-3); EOS # 0.2 x10^3/uL (0.0-0.7); EOS % 4 % (0-3); HEMATOCRIT 33.3 % (39.0-53.0); HEMOGLOBIN 11.3 g/dL (13.0-17.5); LYMPH # 0.5 x10^3/uL (1.0-4.8); LYMPH % 13 % (24-48); MEAN CORPUSCULAR HEMOGLOBIN 33 pg (25-35); MEAN CORPUSCULAR HGB CONC 34 g/dL (31-37); MEAN CORPUSCULAR VOLUME 97 fL (79-100); MONO # 0.8 x10^3/uL (0.0-1.1); MONO % 20 % (0-9); NEUT # 2.6 x10^3/uL (1.8-7.7); NEUT % 62 % (31-73); PLATELET COUNT 295 x10^3/uL (140-400); RED BLOOD COUNT 3.44 x10^6/uL (4.30-5.70); RED CELL DISTRIBUTION WIDTH 20.3 % (11.5-14.5); WHITE BLOOD COUNT 4.1 x10^3/uL (4.0-11.0)
[2021-03-20 15:07] LABS: CALCIUM 8.7 mg/dL (8.5-10.1); CREATININE 0.7 mg/dL (0.7-1.3); GFR 111.8; POTASSIUM 4.5 mmol/L (3.5-5.1)
[2021-03-20 15:12] LABS: ALBUMIN/GLOBULIN RATIO 0.8 (1.0-1.7); TOTAL BILIRUBIN 0.2 mg/dL (0.2-1.0); TOTAL PROTEIN 6.7 g/dL (6.4-8.2)
[2021-03-20 15:59] LABS: % BANDS 9 % (0-9); % EOS 1 % (0-5); % LYMPHS 16 % (24-48); % MONOS 19 % (0-10); % SEGS 55 % (35-66); ANISOCYTOSIS MOD; PLT ESTIMATE ADEQUATE (ADEQUATE); TOXIC GRANULATION PRESENT
== END ==
LOC: ONCLAB 14:31
PROVIDERS: ATTEND Internal Medicine Hematology & Oncology
DX: C34.12 Malignant neoplasm of upper lobe, left bronchus or lung (principal)
CPT/HCPCS: 36415; 80053; 85007; 85025

== ENCOUNTER → 2021-03-30 | Outpatient (CLI) | payer MEDICARE ==
--- NOTE | 2021-03-31 08:55 | RAD ---
PQRS Compliance Statement: One or more of the following individualized dose reduction techniques were utilized for this examinat ion: 1. Automated exposure control 2. Adjustment of the mA and/or kV according to patient size 3. Use of iterative reconstruction technique CT THORAX WO 03/30/2021 1:38 PM Indication: Squamous cell carcinoma of the left upper lobe COMPARISON: CT chest 01/12/2021, 12/07/2020 TECHNIQUE: Multiple axial CT images of the chest were obtained without intravenous contrast. Coronal and sagittal reformats are provided. FINDINGS: Solid noncalcified pulmonary nodule in the right upper lobe measures 7 mm, stable (series 3, image 17 ). 8 mm calcified granuloma identified within the right middle lobe. Rounded spiculated mass with air bronchograms identified within the right lower lobe measuring 3.1 x 3.1 cm, stable. Decrease in size of a satellite nodule along the inferior margin measuring 5 mm, previously measuring 7 mm (series 3, image 33). There is improved aeration of the left upper lobe. There is a mixed groundglass and solid opacity in the lingula measuring 1.8 x 2.0 cm. Reticular interstitial changes are identified with we dge-shaped consolidative change along the anterior lingula. There is left suprahilar soft tissue nodu le measuring approximately 1.2 cm (series 2, image 26). This finding is poorly evaluated without intr avenous contrast. However, this correlates with the area of soft tissue density identified at prior C T chest from 01/12/2021 with decrease in size since prior examination. Three-vessel coronary artery va scular calcifications. Heart size within normal limits. Thoracic aorta is normal in course and calibe r with moderate calcified atheromatous plaque. No suspicious mediastinal or right hilar lymphadenopat hy. Right chest wall infusion port catheter is identified with the distal tip terminating the superio r vena cava. Adrenal glands are normal. No suspicious osseous abnormality is identified. IMPRESSION: 1. Findings suggestive of treatment response with decreased atelectatic changes of the left upper lob e. Persistent mixed solid and groundglass opacity identified within the inferior lingula which may be infectious/inflammatory. However, neoplastic etiology remains a differential consideration and 3 mon th follow-up chest CT may be of benefit. There is improving left suprahilar soft tissue mass resultin g improved aeration of the left upper lobe. 2. No new or enlarging thoracic lymphadenopathy. 3. Stable appearance of a spiculated mass in the right lower lobe with air bronchograms which favor s carring or posttreatment change. No findings to suggest disease progression. Satellite nodule along t he inferior margin appears marginally decreased. This could be secondary to technique and attention o n follow-up exams is recommended. Electronically signed by: Suzette Adair MD (03/31/2021 8:52 AM) [id number]
== END ==
LOC: CT 13:36
PROVIDERS: ATTEND Internal Medicine Hematology & Oncology
DX: C34.12 Malignant neoplasm of upper lobe, left bronchus or lung (principal); J98.4 Other disorders of lung; R91.8 Other nonspecific abnormal finding of lung field; I25.10 Atherosclerotic heart disease of native coronary artery without angina pectoris; I70.0 Atherosclerosis of aorta
CPT/HCPCS: 71250

== ENCOUNTER → 2021-04-01 | Outpatient (CLI) | payer MEDICARE ==
[2021-04-01 14:11] LABS: BASO % 1 % (0-3); EOS # 0.2 x10^3/uL (0.0-0.7); EOS % 5 % (0-3); HEMATOCRIT 33.6 % (39.0-53.0); HEMOGLOBIN 11.6 g/dL (13.0-17.5); LYMPH # 0.6 x10^3/uL (1.0-4.8); LYMPH % 15 % (24-48); MEAN CORPUSCULAR HEMOGLOBIN 34 pg (25-35); MEAN CORPUSCULAR HGB CONC 35 g/dL (31-37); MEAN CORPUSCULAR VOLUME 99 fL (79-100); MONO % 24 % (0-9); NEUT # 2.3 x10^3/uL (1.8-7.7); NEUT % 56 % (31-73); PLATELET COUNT 383 x10^3/uL (140-400); RED CELL DISTRIBUTION WIDTH 21.8 % (11.5-14.5); WHITE BLOOD COUNT 4.1 x10^3/uL (4.0-11.0)
[2021-04-01 14:27] LABS: CALCIUM 9.2 mg/dL (8.5-10.1); CREATININE 0.8 mg/dL (0.7-1.3); GFR 95.8; POTASSIUM 4.4 mmol/L (3.5-5.1)
[2021-04-01 14:34] LABS: ALBUMIN 3.4 g/dL (3.4-5.0); ALBUMIN/GLOBULIN RATIO 0.9 (1.0-1.7); TOTAL BILIRUBIN 0.4 mg/dL (0.2-1.0); TOTAL PROTEIN 7.3 g/dL (6.4-8.2)
== END ==
LOC: ONCLAB 13:38
PROVIDERS: ATTEND Internal Medicine Hematology & Oncology
DX: C34.12 Malignant neoplasm of upper lobe, left bronchus or lung (principal)
CPT/HCPCS: 36415; 80053; 85025

== ENCOUNTER → 2021-04-16 | Outpatient (CLI) | payer MEDICARE ==
[2021-04-16 11:28] LABS: BASO % 1 % (0-3); EOS # 0.2 x10^3/uL (0.0-0.7); EOS % 4 % (0-3); HEMATOCRIT 33.8 % (39.0-53.0); HEMOGLOBIN 11.8 g/dL (13.0-17.5); LYMPH # 0.5 x10^3/uL (1.0-4.8); LYMPH % 9 % (24-48); MEAN CORPUSCULAR HEMOGLOBIN 34 pg (25-35); MEAN CORPUSCULAR HGB CONC 35 g/dL (31-37); MEAN CORPUSCULAR VOLUME 99 fL (79-100); MONO % 18 % (0-9); NEUT # 3.8 x10^3/uL (1.8-7.7); NEUT % 68 % (31-73); PLATELET COUNT 332 x10^3/uL (140-400); RED BLOOD COUNT 3.42 x10^6/uL (4.30-5.70); WHITE BLOOD COUNT 5.6 x10^3/uL (4.0-11.0)
[2021-04-16 11:42] LABS: CALCIUM 8.9 mg/dL (8.5-10.1); CREATININE 0.8 mg/dL (0.7-1.3); GFR 95.8; POTASSIUM 4.5 mmol/L (3.5-5.1)
[2021-04-16 11:53] LABS: ALBUMIN 3.3 g/dL (3.4-5.0); ALBUMIN/GLOBULIN RATIO 0.9 (1.0-1.7); TOTAL BILIRUBIN 0.3 mg/dL (0.2-1.0); TOTAL PROTEIN 7.1 g/dL (6.4-8.2)
[2021-04-16 11:57] LABS: FREE T4 0.9 ng/dL (0.76-1.46); THYROID STIM HORMONE (TSH) 2.838 uIU/mL (0.358-3.74)
[2021-04-16 13:27] LABS: % EOS 3 % (0-5); % LYMPHS 15 % (24-48); % MONOS 15 % (0-10); % SEGS 67 % (35-66); ANISOCYTOSIS MOD; PLT ESTIMATE ADEQUATE (ADEQUATE)
== END ==
LOC: ONCLAB 10:48
PROVIDERS: ATTEND Internal Medicine Hematology & Oncology
DX: C34.12 Malignant neoplasm of upper lobe, left bronchus or lung (principal); R19.7 Diarrhea, unspecified
CPT/HCPCS: 36415; 80053; 83615; 84439; 84443; 85007; 85025

== ENCOUNTER → 2021-04-23 | Outpatient (CLI) | payer MEDICARE ==
[2021-04-23 13:16] LABS: BASO % 1 % (0-3); EOS # 0.3 x10^3/uL (0.0-0.7); EOS % 6 % (0-3); HEMATOCRIT 35.9 % (39.0-53.0); HEMOGLOBIN 12.4 g/dL (13.0-17.5); LYMPH # 0.6 x10^3/uL (1.0-4.8); LYMPH % 12 % (24-48); MEAN CORPUSCULAR HEMOGLOBIN 34 pg (25-35); MEAN CORPUSCULAR HGB CONC 34 g/dL (31-37); MEAN CORPUSCULAR VOLUME 100 fL (79-100); MONO # 0.9 x10^3/uL (0.0-1.1); MONO % 19 % (0-9); NEUT # 3.2 x10^3/uL (1.8-7.7); NEUT % 63 % (31-73); PLATELET COUNT 305 x10^3/uL (140-400); RED BLOOD COUNT 3.61 x10^6/uL (4.30-5.70)
[2021-04-23 13:27] LABS: CALCIUM 8.9 mg/dL (8.5-10.1); CREATININE 0.8 mg/dL (0.7-1.3); GFR 95.8; POTASSIUM 4.6 mmol/L (3.5-5.1)
[2021-04-23 13:33] LABS: ALBUMIN 3.3 g/dL (3.4-5.0); ALBUMIN/GLOBULIN RATIO 0.9 (1.0-1.7); TOTAL BILIRUBIN 0.4 mg/dL (0.2-1.0); TOTAL PROTEIN 7.1 g/dL (6.4-8.2)
[2021-04-23 14:14] LABS: WHITE BLOOD COUNT 5.1 x10^3/uL (4.0-11.0)
== END ==
LOC: ONCLAB 12:50
PROVIDERS: ATTEND Physician Assistant
DX: C34.12 Malignant neoplasm of upper lobe, left bronchus or lung (principal)
CPT/HCPCS: 36415; 80053; 83615; 85025

== ENCOUNTER → 2021-04-30 | Outpatient (CLI) | payer MEDICARE ==
[2021-04-30 12:18] LABS: BASO % 0 % (0-3); EOS # 0.3 x10^3/uL (0.0-0.7); EOS % 6 % (0-3); HEMATOCRIT 35.3 % (39.0-53.0); HEMOGLOBIN 12.1 g/dL (13.0-17.5); LYMPH # 0.6 x10^3/uL (1.0-4.8); LYMPH % 11 % (24-48); MEAN CORPUSCULAR HEMOGLOBIN 34 pg (25-35); MEAN CORPUSCULAR HGB CONC 34 g/dL (31-37); MEAN CORPUSCULAR VOLUME 100 fL (79-100); MONO # 0.9 x10^3/uL (0.0-1.1); MONO % 17 % (0-9); NEUT # 3.7 x10^3/uL (1.8-7.7); NEUT % 66 % (31-73); PLATELET COUNT 321 x10^3/uL (140-400); RED BLOOD COUNT 3.53 x10^6/uL (4.30-5.70); RED CELL DISTRIBUTION WIDTH 19.6 % (11.5-14.5); WHITE BLOOD COUNT 5.5 x10^3/uL (4.0-11.0)
[2021-04-30 12:29] LABS: CALCIUM 8.8 mg/dL (8.5-10.1); CREATININE 0.8 mg/dL (0.7-1.3); GFR 95.8; POTASSIUM 4.6 mmol/L (3.5-5.1)
[2021-04-30 12:42] LABS: ALBUMIN 3.2 g/dL (3.4-5.0); ALBUMIN/GLOBULIN RATIO 0.8 (1.0-1.7); TOTAL BILIRUBIN 0.5 mg/dL (0.2-1.0)
== END ==
LOC: ONCLAB 12:03
PROVIDERS: ATTEND Physician Assistant
DX: C34.12 Malignant neoplasm of upper lobe, left bronchus or lung (principal)
CPT/HCPCS: 36415; 80053; 83615; 85025

== ENCOUNTER → 2021-05-14 | Outpatient (CLI) | payer MEDICARE ==
[2021-05-14 13:13] LABS: BASO % 1 % (0-3); EOS # 0.2 x10^3/uL (0.0-0.7); EOS % 4 % (0-3); HEMATOCRIT 35.1 % (39.0-53.0); HEMOGLOBIN 12.1 g/dL (13.0-17.5); LYMPH # 0.6 x10^3/uL (1.0-4.8); LYMPH % 11 % (24-48); MEAN CORPUSCULAR HEMOGLOBIN 35 pg (25-35); MEAN CORPUSCULAR HGB CONC 35 g/dL (31-37); MEAN CORPUSCULAR VOLUME 101 fL (79-100); MONO # 0.9 x10^3/uL (0.0-1.1); MONO % 16 % (0-9); NEUT # 3.6 x10^3/uL (1.8-7.7); NEUT % 68 % (31-73); PLATELET COUNT 301 x10^3/uL (140-400); RED BLOOD COUNT 3.48 x10^6/uL (4.30-5.70); RED CELL DISTRIBUTION WIDTH 17.6 % (11.5-14.5); WHITE BLOOD COUNT 5.3 x10^3/uL (4.0-11.0)
[2021-05-14 13:47] LABS: CALCIUM 8.8 mg/dL (8.5-10.1); CREATININE 0.9 mg/dL (0.7-1.3); GFR 83.7; POTASSIUM 4.2 mmol/L (3.5-5.1)
[2021-05-14 13:56] LABS: ALBUMIN 3.4 g/dL (3.4-5.0); ALBUMIN/GLOBULIN RATIO 0.9 (1.0-1.7); TOTAL BILIRUBIN 0.3 mg/dL (0.2-1.0)
[2021-05-14 13:59] LABS: FREE T4 0.95 ng/dL (0.76-1.46); THYROID STIM HORMONE (TSH) 2.288 uIU/mL (0.358-3.74)
== END ==
LOC: ONCLAB 12:29
PROVIDERS: ATTEND Physician Assistant
DX: C34.12 Malignant neoplasm of upper lobe, left bronchus or lung (principal); I10 Essential (primary) hypertension
CPT/HCPCS: 36415; 80053; 83615; 84439; 84443; 85025

== ENCOUNTER → 2021-05-29 | Outpatient (CLI) | payer MEDICARE ==
[2021-05-29 13:14] LABS: BASO % 1 % (0-3); EOS # 0.2 x10^3/uL (0.0-0.7); EOS % 3 % (0-3); HEMATOCRIT 37.4 % (39.0-53.0); HEMOGLOBIN 12.8 g/dL (13.0-17.5); LYMPH # 0.7 x10^3/uL (1.0-4.8); LYMPH % 12 % (24-48); MEAN CORPUSCULAR HEMOGLOBIN 35 pg (25-35); MEAN CORPUSCULAR HGB CONC 34 g/dL (31-37); MEAN CORPUSCULAR VOLUME 101 fL (79-100); MONO % 15 % (0-9); NEUT # 4.4 x10^3/uL (1.8-7.7); NEUT % 70 % (31-73); PLATELET COUNT 348 x10^3/uL (140-400); RED BLOOD COUNT 3.71 x10^6/uL (4.30-5.70); RED CELL DISTRIBUTION WIDTH 16.1 % (11.5-14.5); WHITE BLOOD COUNT 6.4 x10^3/uL (4.0-11.0)
[2021-05-29 13:20] LABS: CALCIUM 8.7 mg/dL (8.5-10.1); CREATININE 0.9 mg/dL (0.7-1.3); GFR 83.7; POTASSIUM 4.3 mmol/L (3.5-5.1)
[2021-05-29 13:26] LABS: ALBUMIN 3.4 g/dL (3.4-5.0); ALBUMIN/GLOBULIN RATIO 0.9 (1.0-1.7); TOTAL BILIRUBIN 0.3 mg/dL (0.2-1.0); TOTAL PROTEIN 7.3 g/dL (6.4-8.2)
== END ==
LOC: ONCLAB 12:56
PROVIDERS: ATTEND Physician Assistant
DX: C34.12 Malignant neoplasm of upper lobe, left bronchus or lung (principal)
CPT/HCPCS: 36415; 80053; 83615; 85025

== ENCOUNTER → 2021-06-11 | Outpatient (CLI) | payer MEDICARE ==
[2021-06-11 13:55] LABS: BASO % 0 % (0-3); EOS # 0.2 x10^3/uL (0.0-0.7); EOS % 3 % (0-3); HEMATOCRIT 36.1 % (39.0-53.0); HEMOGLOBIN 12.8 g/dL (13.0-17.5); LYMPH # 0.7 x10^3/uL (1.0-4.8); LYMPH % 11 % (24-48); MEAN CORPUSCULAR HEMOGLOBIN 35 pg (25-35); MEAN CORPUSCULAR HGB CONC 35 g/dL (31-37); MEAN CORPUSCULAR VOLUME 100 fL (79-100); MONO % 17 % (0-9); NEUT # 4.1 x10^3/uL (1.8-7.7); NEUT % 68 % (31-73); PLATELET COUNT 349 x10^3/uL (140-400); RED BLOOD COUNT 3.63 x10^6/uL (4.30-5.70); RED CELL DISTRIBUTION WIDTH 14.7 % (11.5-14.5)
[2021-06-11 14:19] LABS: ALBUMIN 3.3 g/dL (3.4-5.0); ALBUMIN/GLOBULIN RATIO 0.8 (1.0-1.7); CALCIUM 8.6 mg/dL (8.5-10.1); CREATININE 0.9 mg/dL (0.7-1.3); GFR 83.7; TOTAL BILIRUBIN 0.3 mg/dL (0.2-1.0); TOTAL PROTEIN 7.3 g/dL (6.4-8.2)
[2021-06-11 14:52] LABS: POTASSIUM 4.2 mmol/L (3.5-5.1)
== END ==
LOC: ONCLAB 13:02
PROVIDERS: ATTEND Internal Medicine Hematology & Oncology
DX: C34.12 Malignant neoplasm of upper lobe, left bronchus or lung (principal)
CPT/HCPCS: 36415; 80053; 85025

== ENCOUNTER → 2021-06-25 | Outpatient (CLI) | payer MEDICARE ==
[2021-06-25 13:23] LABS: BASO % 1 % (0-3); EOS # 0.2 x10^3/uL (0.0-0.7); EOS % 3 % (0-3); HEMATOCRIT 33.9 % (39.0-53.0); HEMOGLOBIN 11.5 g/dL (13.0-17.5); LYMPH # 0.6 x10^3/uL (1.0-4.8); LYMPH % 9 % (24-48); MEAN CORPUSCULAR HEMOGLOBIN 33 pg (25-35); MEAN CORPUSCULAR HGB CONC 34 g/dL (31-37); MEAN CORPUSCULAR VOLUME 98 fL (79-100); MONO # 1.1 x10^3/uL (0.0-1.1); MONO % 15 % (0-9); NEUT # 5.4 x10^3/uL (1.8-7.7); NEUT % 73 % (31-73); PLATELET COUNT 367 x10^3/uL (140-400); RED BLOOD COUNT 3.45 x10^6/uL (4.30-5.70); RED CELL DISTRIBUTION WIDTH 14.3 % (11.5-14.5); WHITE BLOOD COUNT 7.4 x10^3/uL (4.0-11.0)
[2021-06-25 13:38] LABS: CALCIUM 8.7 mg/dL (8.5-10.1); CREATININE 0.9 mg/dL (0.7-1.3); GFR 83.7; POTASSIUM 4.4 mmol/L (3.5-5.1)
[2021-06-25 13:44] LABS: ALBUMIN/GLOBULIN RATIO 0.7 (1.0-1.7); TOTAL BILIRUBIN 0.4 mg/dL (0.2-1.0); TOTAL PROTEIN 7.3 g/dL (6.4-8.2)
[2021-06-25 13:52] LABS: FREE T4 1.06 ng/dL (0.76-1.46); THYROID STIM HORMONE (TSH) 1.811 uIU/mL (0.358-3.74)
== END ==
LOC: ONCLAB 13:05
PROVIDERS: ATTEND Physician Assistant
DX: C34.12 Malignant neoplasm of upper lobe, left bronchus or lung (principal); Z79.899 Other long term (current) drug therapy
CPT/HCPCS: 36415; 80053; 84439; 84443; 85025

== ENCOUNTER → 2021-07-02 | Outpatient (CLI) | payer MEDICARE ==
--- NOTE | 2021-07-02 17:12 | RAD ---
EXAM: CT OF THE CHEST WITHOUT CONTRAST. HISTORY: Lung cancer restaging. TECHNIQUE: Computed tomography of the chest was performed without intravenous contrast. One or more o f the following individualized dose reduction techniques were utilized for this examination: 1. Automated exposure control. 2. Adjustment of the mA and/or kV according to patient size. 3. Use of iterative reconstruction technique. COMPARISON: 03/30/2021. FINDINGS: Images of the upper abdomen reveal a duodenal diverticulum along the second/third portion m easures 4 cm. There are calcified granulomas in the spleen. An incidental diverticulum along the post erior aspect of the gastric fundus measures 2 cm. A 1.0 cm hypoattenuating lesion in hepatic segment 8 is new and concerning for metastasis. Bone windows reveal no suspicious lesions. There are no pathologically enlarged mediastinal or axillary lymph nodes. There is no pleural or ann cardial effusion. The heart is not enlarged. There are atherosclerotic calcifications of the coronary arteries. A right-sided port catheter has its tip in the superior cavoatrial junction. A mass in the left suprahilar region and anteriorly in the left upper lobe measures 4.5 x 3.2 cm. The re is and lesser infiltrates laterally in the left upper lobe may reflect progression of postradiatio n change but this is indeterminate. A mass in the right lower lobe measures 2.7 x 2.7 cm, not clearly changed. An accessory nodule just i nferior and lateral to it has increased in size and measures 9 mm as compared with 6 mm previously. A 5 mm nodule in the right lower lobe on image 42 is new. A 3 mm nodule on image 50 is also new. Other nodules are seen in the left lower lobe on images 36, 27 and in the right upper lobe on image 28. IMPRESSION: 1. A new 4.5 x 3.2 cm left upper lobe mass may reflect progression of postradiation change but is ind eterminate. 2. Multiple new subcentimeter nodules bilaterally are concerning for metastatic disease. 3. A 2.7 cm mass in the right lower lobe is unchanged. 4. A new hypoattenuating lesion in the right hepatic lobe is concerning for metastasis. Electronically signed by: Camilla Dial MD (07/02/2021 5:09 PM) [id number]
== END ==
LOC: CT 15:32
PROVIDERS: ATTEND Physician Assistant
DX: C34.12 Malignant neoplasm of upper lobe, left bronchus or lung (principal); R91.8 Other nonspecific abnormal finding of lung field; I25.10 Atherosclerotic heart disease of native coronary artery without angina pectoris; K57.10 Diverticulosis of small intestine without perforation or abscess without bleeding
CPT/HCPCS: 71250

== ENCOUNTER → 2021-07-17 | Outpatient (CLI) | payer MEDICARE ==
[~2021-07-17] MED LIST changes: +GADOTERATE 7.5 MMOL/15ML VIAL. IVP ONE
--- NOTE | 2021-07-17 13:51 | RAD ---
EXAMINATION: Magnetic resonance imaging (MRI) of the brain and brainstem without and with contrast 11:16 AM HISTORY: Consult carcinoma of the bronchus, left upper lobe. TECHNIQUE: Multiplanar multi-weighted MRI of the brain and brainstem was performed without and with i ntravenous contrast using the general brain protocol. Contrast information: 12.5 mL Gadolinium based contrast COMPARISON: MRI brain 12/26/2020 FINDINGS: The scalp and calvarium are normal. The superior sagittal sinus demonstrates normal venous flow. The corpus callosum is normal in shape and signal intensity. 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 The pituitary and sella are normal. The brainstem and craniocervical junctio n are unremarkable. There are T2/FLAIR signal hyperintense foci in the periventricular and subcortica l white matter most suggestive of mild chronic small vessel ischemic changes. Diffusion weighted images reveal no hyperintensities to suggest acute cerebral infarction. The suscep tibility weighted sequences reveal no evidence of acute or chronic hemorrhage. The ventricles are nor mal in size and position without evidence of hydrocephalus. There is subtle enhancement identified involving the right posterior occipital lobe (series 10, image 7) which is poorly evaluated on the axial images during adjacent artifact. Mild mucosal thickening of the ethmoid air cells anteriorly as well as the right maxillary sinus. Th e visualized portions of the mastoids are unremarkable. The orbits appear normal with exception of bi lateral lens replacement. Normal flow voids are demonstrated in the carotid arteries and basilar art keith. Sclerosis along the superior margin of the dens favors underlying degenerative changes. IMPRESSION: Subtle enhancement identified within the posterior right occipital lobe identified on coronal images, however not well Right-sided axial postcontrast images and FLAIR images. Follow-up postcontrast imaging with 1 mm thin cut slices could be of benefit as well as repeat FLAIR images. No findings to suggest acute or subacute ischemia. Electronically signed by: Suzette Adair MD (07/17/2021 1:48 PM) [facility]
== END ==
LOC: PETSC 09:51
PROVIDERS: ATTEND Internal Medicine Hematology & Oncology
CPT/HCPCS: 70553; A9575

== ENCOUNTER → 2021-07-24 | Outpatient (CLI) | payer MEDICARE ==
[~2021-07-24] MED LIST changes: -GADOTERATE 7.5 MMOL/15ML VIAL. IVP ONE
--- NOTE | 2021-07-24 16:54 | RAD ---
EXAM: Dual modality PET-CT Scan DATE: 07/24/2021 RADIOPHARMACEUTICAL: 15 mCi F-18 fluorodeoxyglucose (FDG) IV. CLINICAL HISTORY: Lung cancer restaging. COMPARISON: CT dated 07/02/2021. PET/CT dated 12/26/2020. TECHNIQUE: Approximately 45 minutes after tracer administration, routine, attenuation-corrected Posit gage Emission Tomography (PET) images were obtained from the level of the base of the skull through th e level of the mid thighs. Tomographic reconstructions are reviewed in coronal, transaxial and sagitt al planes. Non-contrast CT imaging was performed for attenuation correction and localization purpose s only. These images do not constitute a diagnostic-quality CT examination and were not used to diag nose disease independently of the PET images. The blood glucose level was within acceptable limits at the time of FDG administration. *One or more of the following individualized dose reduction techniques were utilized for this examina tion: 1. Automated exposure control. 2. Adjustment of the mA and/or kV according to patient size. 3. Use of iterative reconstruction technique. FINDINGS: There is increased radiotracer activity within maximum SUV of 4.9 within a 2.7 cm right low er lobe mass with surrounding groundglass and adjacent 10 mm satellite nodule. This previously measur ed 3.8 cm with an SUV of 4.3. There is increased radiotracer activity within maximum SUV of 2.4 within a 7 mm medial left lower lob e nodule, increased compared to the prior study. There is increased radiotracer activity within SUV o f 4.2 associated with a 3.8 cm mass within the superior medial left upper lobe. There is nonspecific increased radiotracer activity within SUV of 3.7 within the left hilum, likely associated with a left hilar lymph nodes. These are difficult to assess given the absence of contrast on the current exam. There is intense radiotracer activity associated with a right renal mass measuring approximately 6.3 cm with an SUV of 14.8. There is also intense radiotracer activity with an SUV of 14.3 within a 1.2 c m right aortocaval lymph node inferior to the right renal vein. There is increased radiotracer activi ty within SUV of 8.3 associated with a 3.0 cm mass within the superior lateral right hepatic lobe. There is mild nonspecific radiotracer activity within the anterior left upper thorax with an SUV of 1 .1, corresponding with a region of nodular and groundglass opacity. There are areas of intense tracer activity within the colon. This may be physiologic. There is hetero geneous activity within the osseous structures. No suspicious CT correlate is seen. There are few oss eous hemangiomas and bone islands. The CT portion of the exam demonstrates an irregular soft tissue mass within the anterior medial left upper lobe measuring approximately 3.8 cm, similar compared to the study performed 07/02/2021. There is stable masslike consolidation within the superior segment of the right lower lobe measuring appro ximately 2.7 cm with surrounding increased nodular and groundglass opacity. There is a 10 mm satellit e nodule in this location which is stable in appearance. There has been interval increase in a 6 mm nodule within the posterior inferior right upper lobe. The re has been interval increase in a 5 mm nodule within the mid right upper lobe and increase in a 4 mm nodule within the anterior right upper lobe. There has been interval increase in a 4 mm pleural-base d nodule within the superior segment of the left lower lobe. There is also increase in a 3 mm nodule within the posterior left lower lobe. There has been slight increase in suspected cavitation associat ed with a 7 mm lateral left lower lobe nodule. There has been slight interval increase in a 7 mm post erior left lower lobe nodule. There has been interval increase in a 6 mm anterior left lower lobe pul monary nodule and 6 mm nodule at the posterior left lung base. There is an increased 3 mm pleural-bas ed nodule at the anterior right lung base. There are few additional tiny nodules measuring 2 to 3 mm which are not significantly changed. The heart is normal in size. There is emphysema. There is calcified atherosclerotic plaque involving the coronary arteries. There is a right chest wall port catheter with the tip in the superior cavoatr ial junction. There is calcification of the aortic valve. There are nonspecific mediastinal and hilar lymph nodes. These are not significantly changed. No hepatic lesion is seen. The gallbladder, pancreas, spleen and adrenal glands are unremarkable. The re is a small amount of gas and fluid within the posterior gastric diverticulum. No suspicious renal lesion is seen. There is no bowel obstruction. There is heavily calcified atherosclerotic plaque with in the aorta and aortic branch vessels. No mesenteric or retroperitoneal lymphadenopathy is seen. The re is a mildly enlarged prostate resulting in deformation of the bladder base. There is suspected encephalomalacia due to chronic infarction involving the left cerebellum, not form ally assessed on this exam. There is evidence of lens surgery. There is no neck lymphadenopathy. Ther e is heavily calcified plaque involving the carotid bifurcations. There are degenerative changes invo lving the spine. There is no acute or suspicious osseous finding. IMPRESSION: 1. 2.7 cm radiotracer avid right lower lobe mass with surrounding groundglass demonstrate an SUV of 4 .9. The degree of radiotracer activity is similar compared to the prior study, favoring no significan t interval therapy response. 2. 3.8 cm radiotracer avid superior medial left upper lobe mass with a maximum SUV of 4.2. The imagin g appearance favors progressive malignancy rather than radiation changes. 3. 6.3 cm radiotracer avid right renal mass with SUV of 14.8. Correlate with a renal sonogram or a re nal protocol CT or MRI. There is a suspected metastatic aortocaval lymph node with an SUV of 14.3. 4. 7 mm radiotracer avid left lower lobe nodule with an SUV of 2.4. This is increased compared to the prior study. There are additional subcentimeter parenchymal nodules are also increased in size, but too small to characterize with PET. These may be neoplastic or inflammatory. This includes a nodule w ith increasing cavitation measuring 7 mm within the left lower lobe. 5. 3.0 cm radiotracer avid liver mass with an SUV of 8.3, likely metastatic in etiology. 6. Nonspecific left hilar radiotracer activity. This may be reactive or neoplastic. 7. Scattered areas of increased tracer activity involving the colon, possibly physiologic in etiology . Correlate with colonoscopy findings. 8. Please refer to the above report for additional findings regarding the non-PET portion of the exam . Electronically signed by: Paty Santana MD (07/24/2021 4:52 PM) [id number]
== END ==
LOC: PETSC 12:30
PROVIDERS: ATTEND Internal Medicine Hematology & Oncology
DX: C34.12 Malignant neoplasm of upper lobe, left bronchus or lung (principal); R91.8 Other nonspecific abnormal finding of lung field; R16.0 Hepatomegaly, not elsewhere classified; I25.10 Atherosclerotic heart disease of native coronary artery without angina pectoris; M47.819 Spondylosis without myelopathy or radiculopathy, site unspecified; I65.29 Occlusion and stenosis of unspecified carotid artery
CPT/HCPCS: 78815; A9552

== ENCOUNTER 2021-08-10 08:20 | Outpatient (CLI) | payer MEDICARE ==
[2021-08-10] VITALS (17 sets, daily range): BP systolic 85–128; BP diastolic 45–67
[~2021-08-10] VITALS: Ht 175.3 cm; Wt 61.4 kg
[2021-08-10] MEDS ORDERED: ASPI-630 PO (08:44)
[2021-08-10] MEDS ORDERED: SERT-266 PO (08:44)
[2021-08-10] MEDS ORDERED: GUAI473L PO (08:44)
[2021-08-10 08:56] LABS: BASO % 1 % (0-3); EOS # 0.2 x10^3/uL (0.0-0.7); EOS % 3 % (0-3); HEMATOCRIT 32.3 % (39.0-53.0); HEMOGLOBIN 10.9 g/dL (13.0-17.5); LYMPH # 0.5 x10^3/uL (1.0-4.8); LYMPH % 6 % (24-48); MEAN CORPUSCULAR HEMOGLOBIN 32 pg (25-35); MEAN CORPUSCULAR HGB CONC 34 g/dL (31-37); MEAN CORPUSCULAR VOLUME 93 fL (79-100); MONO # 1.3 x10^3/uL (0.0-1.1); MONO % 17 % (0-9); NEUT # 5.2 x10^3/uL (1.8-7.7); NEUT % 73 % (31-73); PLATELET COUNT 407 x10^3/uL (140-400); RED BLOOD COUNT 3.45 x10^6/uL (4.30-5.70); RED CELL DISTRIBUTION WIDTH 14.5 % (11.5-14.5); WHITE BLOOD COUNT 7.2 x10^3/uL (4.0-11.0)
[2021-08-10 09:03] LABS: PROTHROMBIN TIME PATIENT 12.7 SEC (11.7-14.0)
[2021-08-10] MEDS ORDERED: LIDOCAINE WITH 8.4% SOD BICARB 3 ML DISP.SYRIN. ONE (09:16)
[2021-08-10] MEDS ORDERED: GELATIN SPONGE SIZE 12-7MM SPONGE. ONE (10:01)
[2021-08-10] MEDS: fentaNYL PF VIAL 100 MCG/2 ML VIAL IV ONE (10:11)
[2021-08-10] MEDS: MIDAZOLAM HCL/PF 2 MG/2 ML VIAL. IV ONE (10:11)
[2021-08-10] MEDS: LIDOCAINE WITH 8.4% SOD BICARB 3 ML DISP.SYRIN. IJ ONE (10:20)
[2021-08-10] MEDS: GELATIN SPONGE SIZE 12-7MM SPONGE. TP ONE (10:33)
--- NOTE | 2021-08-12 11:16 | RAD ---
CT-guided biopsy, right renal mass 08/12/2021 INDICATION: PET avid right renal mass, new appearing to have developed between the PET/CT from December 2020, and July 2021 Consent: The procedure was explained in its entirety to the patient or the patients designated repres entative by a member of the treatment team, including a discussion of the risks, benefits and commonl y accepted alternatives to the procedure, as well as the expected consequences of no therapy whatsoev er. Discussion of the risks included, but was not limited to, those that are most frequent and thos e that are rare but possibly severe or life-threatening, as well as the possibility of unforeseen com plications. Sedation: The procedure was performed under conscious sedation including continuous cardiopulmonary m onitoring via a dedicated sedation nurse. [id number] sedation time: 30 minutes The right flank was prepped and draped sterile barrier technique. 1% lidocaine was administered for l ocal anesthesia. Under intermittent CT guidance a 17-gauge needle was advanced into the right renal m ass. Core biopsy samples were obtained. Gelfoam embolization of the biopsy tract was performed as a g uiding needle was removed. Repeat CT demonstrates no immediate complication. The patient tolerated th e procedure well. IMPRESSION: CT-guided biopsy, right kidney with Gelfoam localization of biopsy tract CT DOSING PQRS STATEMENT: One or more of the following individualized dose reduction techniques were utilized for this examinat ion: 1. Automated exposure control 2. Adjustment of the mA and/or kV according to patient size 3. Use of iterative reconstruction technique Electronically signed by: João Hua MD (08/12/2021 11:14 AM) [id number]
== END 2021-08-10 13:50 | disposition home or self-care (01) ==
LOC: INTRAD 08:20
PROVIDERS: ATTEND Internal Medicine Hematology & Oncology
DX: N28.89 Other specified disorders of kidney and ureter (principal); C34.12 Malignant neoplasm of upper lobe, left bronchus or lung; I25.10 Atherosclerotic heart disease of native coronary artery without angina pectoris; I10 Essential (primary) hypertension; F17.210 Nicotine dependence, cigarettes, uncomplicated; Z86.73 Personal history of transient ischemic attack (TIA), and cerebral infarction without residual deficits; Z79.899 Other long term (current) drug therapy; Z79.82 Long term (current) use of aspirin; Z98.890 Other specified postprocedural states
CPT/HCPCS: 36415; 50200; 77012; 85025; 85610; 99152; 99153; J2250; J3010; J3490

== ENCOUNTER 2021-08-16 11:44 | Emergency (ER) | payer MEDICARE ==
[~2021-08-16] VITALS: Ht 175.3 cm; Wt 61.0 kg
[~2021-08-16 11:44] MED LIST changes: +ASPI-630 PO; +GUAI473L PO; +SERT-266 PO
[2021-08-16 13:15] LABS: BASO % 0 % (0-3); EOS % 0 % (0-3); HEMATOCRIT 30.2 % (39.0-53.0); HEMOGLOBIN 10.1 g/dL (13.0-17.5); LYMPH # 0.3 x10^3/uL (1.0-4.8); LYMPH % 4 % (24-48); MEAN CORPUSCULAR HEMOGLOBIN 31 pg (25-35); MEAN CORPUSCULAR HGB CONC 34 g/dL (31-37); MEAN CORPUSCULAR VOLUME 92 fL (79-100); MONO # 1.2 x10^3/uL (0.0-1.1); MONO % 15 % (0-9); NEUT # 6.5 x10^3/uL (1.8-7.7); NEUT % 81 % (31-73); PLATELET COUNT 382 x10^3/uL (140-400); RED BLOOD COUNT 3.29 x10^6/uL (4.30-5.70); RED CELL DISTRIBUTION WIDTH 14.9 % (11.5-14.5); WHITE BLOOD COUNT 8.1 x10^3/uL (4.0-11.0)
[2021-08-16 13:23] LABS: CALCIUM 8.4 mg/dL (8.5-10.1); CREATININE 1.2 mg/dL (0.7-1.3); GFR 59.9; POTASSIUM 5.1 mmol/L (3.5-5.1)
[2021-08-16 13:29] LABS: PROTHROMBIN TIME PATIENT 13.2 SEC (11.7-14.0)
[2021-08-16 13:31] LABS: ALBUMIN 2.8 g/dL (3.4-5.0); ALBUMIN/GLOBULIN RATIO 0.7 (1.0-1.7); TOTAL BILIRUBIN 0.4 mg/dL (0.2-1.0); TOTAL PROTEIN 6.7 g/dL (6.4-8.2)
[2021-08-16] MEDS ORDERED: IOHEXOL 300 MG/ML 100ML VIAL. IV ONE (14:00)
[2021-08-16] MEDS ORDERED: CONTRAST GIVEN. MC PRN (14:00)
[2021-08-16 14:18] LABS: BILIRUBIN,URINE NEGATIVE (NEG); CLARITY,URINE CLOUDY; COLOR,URINE RED; NITRITE,URINE NEGATIVE (NEG); PROTEIN,URINE 100 mg/dL (NEG-TRACE); UROBILINOGEN,URINE 0.2 mg/dL (0.2 mg/dL)
--- NOTE | 2021-08-16 14:21 | RAD ---
PQRS Compliance Statement: One or more of the following individualized dose reduction techniques were utilized for this examinat ion: 1. Automated exposure control 2. Adjustment of the mA and/or kV according to patient size 3. Use of iterative reconstruction technique Exam performed: CT abdomen and pelvis with contrast HISTORY: Lung cancer. DATE OF SERVICE: 08/16/2021. COMPARISON: Nuclear medicine PET scan from 07/24/2021. TECHNIQUE: Contiguous helical acquisitions are obtained from the foramen magnum to the vertex without IV contrast. Sagittal and coronal reformatted images are obtained and reviewed. FINDINGS: There is a 1.0 cm solid nodule in the posterior right lower lobe. There are additional smaller nodule s in both lungs involving the distal superior the visualized heart is normal. There is a low attenuating 2.4 cm mass in the right hepatic lobe. The spleen, pancreas and gallbladde r appear normal. Both adrenal glands and the left kidney appear normal. There is a complex cystic mas s in the upper and mid pole of the right kidney with mild dilation of the upper ureter. Diffuse athe romatous aortic calcification is seen. There is a 10 mm aortocaval lymph node. The small and large gregorio wel loops are nondilated and unremarkable. The urinary bladder is distended. Prostate gland, seminal vesicles and rectum appear normal. IMPRESSION: Multiple bilateral pulmonary nodules consistent with pulmonary metastasis. Low attenuating masses are identified consistent with hepatic metastasis. 10 mm aortocaval metastatic lymph node. Electronically signed by: Megan Mustafa MD (08/16/2021 2:19 PM) [facility]
[2021-08-16 14:27] LABS: RBC,URINE TNTC /HPF (0-2)
[2021-08-16 14:29] LABS: BACTERIA,URINE 0 /HPF (0-FEW)
[2021-08-16 14:39] LABS: % LYMPHS 5 % (24-48); % SEGS 83 % (35-66); PLT ESTIMATE ADEQUATE (ADEQUATE)
[2021-08-16 14:40] LABS: % BANDS 3 % (0-9); % MONOS 9 % (0-10); POIKILOCYTOSIS SLIGHT
--- NOTE | 2021-08-16 14:43 | PHYS DOC ---
Past Medical History Past Medical History: Alcoholism, CVA, High Cholesterol, Hypertension, Other Additional Past Medical Histor: CIRRHOSIS,", CVA 2018-TAKES PLAVIX, LUNG CA, PNEUMO, ULCERS Past Surgical History: Other Additional Past Surgical Histo: L HAND, R KIDNEY BIOPSY Smoking Status: Current Every Day Smoker Alcohol Use: None Drug Use: None General Adult EDM: Chief Complaint: BLOOD IN URINE HPI: HPI: 71-year-old male past medical history significant for CVA on Plavix, hypertension, hyperlipidemia, alcohol abuse and history of lung cancer (squamous cell carcinoma, follows w/Dr. Raymond) status post radiation and chemo, presents to the ED with his son and daughter (she's an rn), (patient consents to his/her/their knowledge and involvement in pts' medical care), complaints of purple urine and blood clots that have been intermittent for the past 2 weeks, constant for the past day with associated exertional dyspnea. Patient reports he had a right kidney biopsy on August 10 after his recent PET scan showed metastases to the liver and his right kidney. Results from biopsy not back. Not on any home oxygen. Reports it stings when he pees. Is vaccinated for Covid. Patient with no history of anemia, has never required any blood p roducts. Has no difficulties voiding. Review of Systems: Review of Systems: Constitutional: Denies fever or chills. [] Eyes: Denies change in visual acuity. [] HENT: Denies nasal congestion or sore throat. [] Respiratory: Denies cough or hemoptysis Cardiovascular: Denies chest pain or edema. [] GI: Denies abdominal pain, nausea, vomiting, bloody stools or diarrhea. [] : Denies increased urinary frequency or urinary urgency Musculoskeletal: Denies back pain or joint pain. [] Integument: Denies rash or diaphoresis Neurologic: Denies headache, focal weakness or sensory changes. [] Endocrine: Denies polyuria or polydipsia. [] Lymphatic: Denies swollen glands. [] Psychiatric: Denies depression or anxiety. [] Heart Score: C/O Chest Pain: No Risk Factors: Risk Factors: DM, Current or recent (<one month) smoker, HTN, HLP, family history of CAD, obesity. Risk Scores: Score 0 - 3: 2.5% MACE over next 6 weeks - Discharge Home Score 4 - 6: 20.3% MACE over next 6 weeks - Admit for Clinical Observation Score 7 - 10: 72.7% MACE over next 6 weeks - Early Invasive Strategies Current Medications: Current Medications Medications (Trade) Dose Ordered Sig/Arun Start Time Stop Time Status Last Admin Dose Admin Info (CONTRAST GIVEN -- Rx MONITORING) 1 each PRN DAILY PRN 08/16/21 14:00 08/18/21 13:59 Iohexol (Omnipaque 300 Mg/ml) 75 ml 1X ONCE 08/16/21 14:00 08/16/21 14:01 DC 08/16/21 14:07 75 ML Allergies: Allergies: Allergies Coded Allergies Type Severity Reaction Last Updated Verified No Known Drug Allergies 03/02/19 No Physical Exam: PE: Constitutional: Well developed, well nourished, no acute distress, non-toxic appearance. HENT: Normocephalic, atraumatic, Eyes: EOMI, conjunctiva normal, no discharge. Neck: Normal range of motion, supple, Cardiovascular: S1/2 present, regular rhythm Lungs & Thorax: Speaking in full sentences, bilateral equal chest rise, no tachypnea or increased work of breathing, no labored speech Abdomen: soft, no tenderness, Skin: Warm, dry, no erythema, Back: No tenderness, reports right CVA tenderness-skin site clean/dry/no rash Extremities: No tenderness, no cyanosis, no lower extremity edema Neurologic: Alert and oriented X 3, normal motor function, normal sensory function, no focal deficits noted. [] Psychologic: Affect normal, judgement normal, mood normal. [] Current Patient Data: Labs: Laboratory Tests Test 08/16/21 13:04 08/16/21 14:00 White Blood Count 8.1 x10^3/uL (4.0-11.0) Red Blood Count 3.29 x10^6/uL (4.30-5.70) L Hemoglobin 10.1 g/dL (13.0-17.5) L Hematocrit 30.2 % (39.0-53.0) L Mean Corpuscular Volume 92 fL (79-100) Mean Corpuscular Hemoglobin 31 pg (25-35) Mean Corpuscular Hemoglobin Concent 34 g/dL (31-37) Red Cell Distribution Width 14.9 % (11.5-14.5) H Platelet Count 382 x10^3/uL (140-400) Neutrophils (%) (Auto) 81 % (31-73) H Lymphocytes (%) (Auto) 4 % (24-48) L Monocytes (%) (Auto) 15 % (0-9) H Eosinophils (%) (Auto) 0 % (0-3) Basophils (%) (Auto) 0 % (0-3) Neutrophils # (Auto) 6.5 x10^3/uL (1.8-7.7) Lymphocytes # (Auto) 0.3 x10^3/uL (1.0-4.8) L Monocytes # (Auto) 1.2 x10^3/uL (0.0-1.1) H Eosinophils # (Auto) 0.0 x10^3/uL (0.0-0.7) Basophils # (Auto) 0.0 x10^3/uL (0.0-0.2) Platelet Estimate Pending Prothrombin Time 13.2 SEC (11.7-14.0) Prothrombin Time INR 1.0 (0.8-1.1) Activated Partial Thromboplast Time 32 SEC (24-38) Sodium Level 125 mmol/L (136-145) L Potassium Level 5.1 mmol/L (3.5-5.1) Chloride Level 93 mmol/L (98-107) L Carbon Dioxide Level 23 mmol/L (21-32) Anion Gap 9 (6-14) Blood Urea Nitrogen 12 mg/dL (8-26) Creatinine 1.2 mg/dL (0.7-1.3) Estimated GFR (Cockcroft-Gault) 59.9 BUN/Creatinine Ratio 10 (6-20) Glucose Level 92 mg/dL (70-99) Calcium Level 8.4 mg/dL (8.5-10.1) L Total Bilirubin 0.4 mg/dL (0.2-1.0) Aspartate Amino Transferase (AST) 22 U/L (15-37) Alanine Aminotransferase (ALT) 23 U/L (16-63) Alkaline Phosphatase 75 U/L (46-116) Total Protein 6.7 g/dL (6.4-8.2) Albumin 2.8 g/dL (3.4-5.0) L Albumin/Globulin Ratio 0.7 (1.0-1.7) L Urine Collection Type Unknown Urine Color Red Urine Clarity Cloudy Urine pH 7.0 (<5.0-8.0) Urine Specific [place] 1.015 (1.000-1.030) Urine Protein 100 mg/dL (NEG-TRACE) Urine Glucose (UA) Negative mg/dL (NEG) Urine Ketones (Stick) Trace mg/dL (NEG) Urine Blood Large (NEG) Urine Nitrite Negative (NEG) Urine Bilirubin Negative (NEG) Urine Urobilinogen Dipstick 0.2 mg/dL (0.2 mg/dL) Urine Leukocyte Esterase Small (NEG) Urine RBC Tntc /HPF (0-2) Urine WBC 5-10 /HPF (0-4) Urine Bacteria 0 /HPF (0-FEW) Laboratory Tests 08/16/21 13:04 Laboratory Tests 08/16/21 13:04 Vital Signs: Vital Signs Date Time Temp Pulse Resp B/P (MAP) Pulse Ox O2 Delivery O2 Flow Rate FiO2 08/16/21 12:07 97.2 66 16 132/60 (84) 99 Room Air 97.2 EKG: EKG: [] Radiology/Procedures: Radiology/Procedures: IMAGING REPORT Signed PATIENT: YASMIN DUNNE ACCOUNT: [id number] : 1950 LOCATION: ER AGE: 71 SEX: M EXAM STATUS: REG ER ORD. PHYSICIAN: LIDIA BOOTHE DO REASON: hematuria, r flank pain s/p biopsy, lung ca w/mets PROCEDURE: CT ABD PELV W/ IV CONTRST ONLY PQRS Compliance Statement: One or more of the following individualized dose reduction techniques were utilized for this examination: 1. Automated exposure control 2. Adjustment of the mA and/or kV according to patient size 3. Use of iterative reconstruction technique Exam performed: CT abdomen and pelvis with contrast HISTORY: Lung cancer. DATE OF SERVICE: 08/16/2021. COMPARISON: Nuclear medicine PET scan from 07/24/2021. TECHNIQUE: Contiguous helical acquisitions are obtained from the foramen magnum to the vertex without IV contrast. Sagittal and coronal reformatted images are obtained and reviewed. FINDINGS: There is a 1.0 cm solid nodule in the posterior right lower lobe. There are additional smaller nodules in both lungs involving the distal superior the visualized heart is normal. There is a low attenuating 2.4 cm mass in the right hepatic lobe. The spleen, pancreas and gallbladder appear normal. Both adrenal glands and the left kidney appear normal. There is a complex cystic mass in the upper and mid pole of the right kidney with mild dilation of the upper ureter. Diffuse atheromatous aortic calcification is seen. There is a 10 mm aortocaval lymph node. The small and large bowel loops are nondilated and unremarkable. The urinary bladder is distended. Prostate gland, seminal vesicles and rectum appear normal. IMPRESSION: Multiple bilateral pulmonary nodules consistent with pulmonary metastasis. Low attenuating masses are identified consistent with hepatic metastasis. 10 mm aortocaval metastatic lymph node. Electronically signed by: Megan Mustafa MD (08/16/2021 2:19 PM) [facility] DICTATED and SIGNED BY: MEGAN MUSTAFA MD DATE: 08/16/21 [id number] 0 Course & Med Decision Making: Course & Med Decision Making Pertinent Labs and Imaging studies reviewed. (See chart for details) I spoke with Dr. Raymond regarding patient's care. U/A with 5-10 wbc, small LE but no bacteria-will treat with abx. Pt not requiring supplemental oxygen and has no difficulties voiding, no concern for urinary obstruction. Labs with chronic, slowly worsening hyponatremia and normocytic anemia. Patient complains of right flank pain and has no analgesia prescribed to him. Given history of metastatic disease informed him I will prescribe a short dose of opiods and recommend intermediate project manager management with oncology or pain management-med list reviewed, pt not on any other sedative medications. Will need labs repeated in 24 to 48 hours to reassess anemia and hyponatremia. Will discharge home with strict ED return precautions were given for exertional dyspnea, syncope, chest pain, fever, flank pain, flulike symptoms or nausea or vomiting. Encouraged urgent outpatient follow-up with PMD in 2 days to re-check pts' hemoglobin, oncology as instructed. Life-threatening processes were considered but are low suspicion at this time, given history, physical exam and ED workup. Pt was educated on all prescription medications and adverse effects. All patient's questions were answered and pt was stable at time of discharge. Life/limb-threatening differential includes but is not limited to, trauma, infection, nephrolithiasis, kidney disease, malignancy, obstructive uropathy, BPH, AAA/AVF/aortic dissection, or schistosomiasis. I have spoken with the patient and/or caregivers. I explained the patient's condition, diagnoses and treatment plan based on the information available to me at this time. I have answered the patient and/or caregiver's questions and addressed any concerns. The patient and/or caregivers have a good understanding of patient's diagnosis, condition and treatment plan as can be expected at this point. Vital signs have been stable. Patient's condition is stable and approp riate for discharge from the emergency department. Patient will pursue further outpatient evaluation with primary care physician or other designated or consulting physician as outlined in the discharge instructions. The patient and/or caregivers are agreeable to this plan of care and follow-up instructions have been explained in detail. The patient and/or caregivers have received these instructions in written form and have expressed an understanding of the discharge instructions. The patient and/or caregivers are aware that any significant change of condition or worsening of symptoms shou ld prompt immediate return to this or the closest emergency department or call to [id number] Disclaimer: Thiago Disclaimer: This electronic medical record was generated, in whole or in part, using a voice recognition dictation system. Departure Departure Impression: Primary Impression: Hematuria, gross Additional Impressions: Normocytic anemia Metastatic primary lung cancer Disposition: HOME / SELF CARE / HOMELESS Condition: STABLE Referrals: DYANA VERGARA (PCP) in 2 days for hemoglobin re-check Patient Instructions: Anemia, Nonspecific-Brief, Hematuria, Adult Additional Instructions: FOLLOW UP WITH: FOR DEFINITIVE MANAGEMENT of metastatic cancer Hematology/Oncology [facility] [address] [place]. [address] [place] [id number] EMERGENCY DEPARTMENT GENERAL DISCHARGE INSTRUCTIONS Thank you for coming to [facility] Emergency Department (ED) today and trusting us with you care. We trust that you had a positive experience in our Emergency Department. If you wish to speak to the department management, you may call the Director at [phone]. YOUR FOLLOW UP INSTRUCTIONS ARE FOLLOWS: 1. Do you have a private Doctor? If you do not have a private doctor, please ask for a resource list of physicians or clinics that may be able to assist you with follow up care. 2. The Emergency Physicain has interpreted your x-rays. The X-Ray specialist will also review them. If there is a change in the findings, you will be notified in 48 hours when at all possible. 3. A lab test or culture has been done, your results will be reviewed and you will be notified if you need a change in treatment. ADDITIONAL INSTRUCTIONS AND INFORMATION: 1. Your care today has been supervised by a physician who is specially trained in emergency care. Many problems require more than one evaluation for a complete diagnosis and treatment. We recommend that you schedule your follow up appointment as recommended to ensure complete treatment of you illness or injury. If you are unable to obtain follow up care and continue to have a problem, or if your condition worsens, we recommend that you return to the ED. 2. We are not able to safely determine your condition over the phone nor are we able to give sound medical advice over the phone. For these safety reasons, if you call for medical advice we will ask you to come to the ED for further evaluation. 3. If you have any questions regarding these discharge instructions please call the ED at [phone]. SAFETY INFORMATION: In the interest of safety, wellness, and injury prevention; we encourage you to wear your sealbelt, if you smoke; quite smoking, and we encourage family to use a prote ctive helmet for bicycling and other sporting events that present an increased risk for head injury. IF YOUR SYMPTOMS WORSEN OR NEW SYMPTOMS DEVELOP, OR YOU HAVE CONCERNS ABOUT YOUR CONDITION; OR IF YOUR CONDITION WORSENS WHILE YOU ARE WAITING FOR YOUR FOLLOW UP APPOINTMENT; EITHER CONTACT YOUR PRIMARY CARE DOCTOR, THE PHYSICIAN WHOSE NAME AND NUMBER YOU WERE GIVEN, OR RETURN TO THE ED IMMEDIATELY. Scripts Hydrocodone Bit/Acetaminophen (HYDROCODONE-APAP 5-325 ) 1 Tab Tablet 1 TAB PO PRN Q6HRS PRN for PAIN for 3 Days, #12 TAB 0 Refills Prov: SHYANNLIDIA Lorraine DO 08/16/21 Docusate Sodium (COLACE) 100 Mg Capsule 1 CAP PO BID for 5 Days, #10 CAP 0 Refills Prov: LIDIA BOOTHE DO 08/16/21 Phenazopyridine Hcl (PHENAZOPYRIDINE HCL) 100 Mg Tablet 1 TAB PO TID for urinary discomfort for 3 Days, #9 TAB 0 Refills Prov: LIDIA BOOTHE DO 08/16/21 Cephalexin (KEFLEX) 500 Mg Capsule 1 CAP PO QID for 10 Days, #40 CAP Prov: LIDIA BOOTHE DO 08/16/21 LIDIA BOOTHE DO Aug 16, 2021 14:43
[2021-08-16] MEDS ORDERED: cefTRIAXone IV Push 1 GM VIAL. IVP ONE (15:00)
[2021-08-16] MEDS ORDERED: DOCU-109 PO (16:02)
[2021-08-16] MEDS ORDERED: PHEN-443 PO (16:02)
[2021-08-16] MEDS ORDERED: HYDR-2761 PO (16:02)
[2021-08-16] MEDS ORDERED: CEPH500C PO (16:02)
[2021-08-16 16:17] VITALS: BP 114/58
== END 2021-08-16 16:24 | disposition home or self-care (01) ==
LOC: ER 11:44
DX: R31.0 Gross hematuria (principal); D64.9 Anemia, unspecified; Z85.118 Personal history of other malignant neoplasm of bronchus and lung; E78.00 Pure hypercholesterolemia, unspecified; I10 Essential (primary) hypertension; F17.200 Nicotine dependence, unspecified, uncomplicated; Z86.73 Personal history of transient ischemic attack (TIA), and cerebral infarction without residual deficits
CPT/HCPCS: 36415; 74177; 80053; 81001; 85007; 85025; 85610; 85730; 87086; 96374; 99285; J0696; Q9967

== ENCOUNTER → 2021-09-23 | Outpatient (CLI) | payer MEDICARE ==
[~2021-09-23] MED LIST changes: +CEPH500C PO; +DOCU-109 PO; +HYDR-2761 PO; +PHEN-443 PO
[2021-09-23 13:26] LABS: BASO % 1 % (0-3); EOS # 0.1 x10^3/uL (0.0-0.7); EOS % 3 % (0-3); HEMATOCRIT 29.8 % (39.0-53.0); HEMOGLOBIN 9.9 g/dL (13.0-17.5); LYMPH # 0.5 x10^3/uL (1.0-4.8); LYMPH % 10 % (24-48); MEAN CORPUSCULAR HEMOGLOBIN 29 pg (25-35); MEAN CORPUSCULAR HGB CONC 33 g/dL (31-37); MEAN CORPUSCULAR VOLUME 87 fL (79-100); MONO # 1.1 x10^3/uL (0.0-1.1); MONO % 20 % (0-9); NEUT # 3.5 x10^3/uL (1.8-7.7); NEUT % 67 % (31-73); PLATELET COUNT 422 x10^3/uL (140-400); RED BLOOD COUNT 3.42 x10^6/uL (4.30-5.70); RED CELL DISTRIBUTION WIDTH 16.5 % (11.5-14.5); WHITE BLOOD COUNT 5.3 x10^3/uL (4.0-11.0)
[2021-09-23 13:37] LABS: CALCIUM 8.2 mg/dL (8.5-10.1); CREATININE 1.1 mg/dL (0.7-1.3); GFR 66.2; POTASSIUM 4.4 mmol/L (3.5-5.1)
[2021-09-23 13:44] LABS: ALBUMIN 2.9 g/dL (3.4-5.0); ALBUMIN/GLOBULIN RATIO 0.7 (1.0-1.7); TOTAL BILIRUBIN 0.4 mg/dL (0.2-1.0); TOTAL PROTEIN 6.9 g/dL (6.4-8.2)
[2021-09-23 14:23] LABS: % BANDS 1 % (0-9); % EOS 2 % (0-5); % LYMPHS 7 % (24-48); % MONOS 23 % (0-10); % SEGS 67 % (35-66); PLT ESTIMATE INCREASED (ADEQUATE)
== END ==
LOC: ONCLAB 13:06
PROVIDERS: ATTEND Internal Medicine Hematology & Oncology
DX: C34.12 Malignant neoplasm of upper lobe, left bronchus or lung (principal)
CPT/HCPCS: 36415; 80053; 82607; 82728; 82746; 83540; 83550; 83615; 83921; 85007; 85025

== ENCOUNTER → 2021-10-09 | Outpatient (CLI) | payer MEDICARE ==
[2021-10-05 15:00] VITALS: BP 120/69
[~2021-10-09] MED LIST changes: +DULO20CA PO; +LOPE1LIQ7 PO; +MAG-115 PO; +ONDA4TAB12 PO; +PROC10TA57 PO
[2021-10-09 14:53] LABS: BASO % 0 % (0-3); EOS % 1 % (0-3); HEMATOCRIT 26.1 % (39.0-53.0); HEMOGLOBIN 8.6 g/dL (13.0-17.5); LYMPH # 0.6 x10^3/uL (1.0-4.8); LYMPH % 10 % (24-48); MEAN CORPUSCULAR HEMOGLOBIN 29 pg (25-35); MEAN CORPUSCULAR HGB CONC 33 g/dL (31-37); MEAN CORPUSCULAR VOLUME 86 fL (79-100); MONO # 0.7 x10^3/uL (0.0-1.1); MONO % 12 % (0-9); NEUT # 4.2 x10^3/uL (1.8-7.7); NEUT % 77 % (31-73); PLATELET COUNT 129 x10^3/uL (140-400); RED BLOOD COUNT 3.03 x10^6/uL (4.30-5.70); RED CELL DISTRIBUTION WIDTH 17.7 % (11.5-14.5); WHITE BLOOD COUNT 5.5 x10^3/uL (4.0-11.0)
[2021-10-09 15:16] LABS: CALCIUM 7.7 mg/dL (8.5-10.1); CREATININE 0.8 mg/dL (0.7-1.3); GFR 95.6; POTASSIUM 3.8 mmol/L (3.5-5.1)
[2021-10-09 15:22] LABS: ALBUMIN 2.5 g/dL (3.4-5.0); ALBUMIN/GLOBULIN RATIO 0.8 (1.0-1.7); TOTAL BILIRUBIN 0.3 mg/dL (0.2-1.0); TOTAL PROTEIN 5.5 g/dL (6.4-8.2)
[2021-10-09 17:29] LABS: % BANDS 5 % (0-9); % LYMPHS 8 % (24-48); % MONOS 15 % (0-10); % SEGS 72 % (35-66)
[2021-10-09 17:30] LABS: ANISOCYTOSIS SLIGHT; BIZZARE CELLS FEW; OVALOCYTES FEW; PLT ESTIMATE DECREASED (ADEQUATE); POIKILOCYTOSIS SLIGHT; TOXIC GRANULATION MOD
== END ==
LOC: ONCLAB 14:15
PROVIDERS: ATTEND Internal Medicine Hematology & Oncology
DX: C34.12 Malignant neoplasm of upper lobe, left bronchus or lung (principal)
CPT/HCPCS: 36415; 80053; 85007; 85025

== ENCOUNTER → 2021-10-15 | Outpatient (CLI) | payer MEDICARE ==
[2021-10-05 15:00] VITALS: BP 120/69
[2021-10-15 12:46] LABS: CALCIUM 8.2 mg/dL (8.5-10.1); GFR 73.9; POTASSIUM 4.7 mmol/L (3.5-5.1)
[2021-10-15 12:47] LABS: BASO % 1 % (0-3); EOS % 0 % (0-3); HEMOGLOBIN 8.4 g/dL (13.0-17.5); LYMPH # 0.4 x10^3/uL (1.0-4.8); LYMPH % 10 % (24-48); MEAN CORPUSCULAR HEMOGLOBIN 28 pg (25-35); MEAN CORPUSCULAR HGB CONC 32 g/dL (31-37); MEAN CORPUSCULAR VOLUME 87 fL (79-100); MONO # 0.6 x10^3/uL (0.0-1.1); MONO % 16 % (0-9); NEUT # 2.7 x10^3/uL (1.8-7.7); NEUT % 73 % (31-73); PLATELET COUNT 200 x10^3/uL (140-400); RED BLOOD COUNT 2.99 x10^6/uL (4.30-5.70); RED CELL DISTRIBUTION WIDTH 18.6 % (11.5-14.5); WHITE BLOOD COUNT 3.7 x10^3/uL (4.0-11.0)
[2021-10-15 12:52] LABS: ALBUMIN 2.4 g/dL (3.4-5.0); ALBUMIN/GLOBULIN RATIO 0.6 (1.0-1.7); TOTAL BILIRUBIN 0.2 mg/dL (0.2-1.0); TOTAL PROTEIN 6.5 g/dL (6.4-8.2)
[2021-10-15 14:58] LABS: % ATYL 1 % (0-0); % LYMPHS 13 % (24-48); % MONOS 7 % (0-10); % SEGS 79 % (35-66)
[2021-10-15 15:00] LABS: PLT ESTIMATE ADEQUATE (ADEQUATE)
[2021-10-15 15:01] LABS: BIZZARE CELLS FEW; OVALOCYTES FEW; TEAR DROP CELLS OCC; TOXIC GRANULATION MOD
[2021-10-15 15:02] LABS: ACANTHOCYTES OCC; ANISOCYTOSIS SLIGHT
== END ==
LOC: ONCLAB 12:21
PROVIDERS: ATTEND Internal Medicine Hematology & Oncology
DX: C34.12 Malignant neoplasm of upper lobe, left bronchus or lung (principal)
CPT/HCPCS: 36415; 80053; 85007; 85025

== ENCOUNTER → 2021-10-26 | Outpatient (CLI) | payer MEDICARE ==
[2021-10-05 15:00] VITALS: BP 120/69
[2021-10-26 14:07] LABS: BASO % 1 % (0-3); EOS # 0.1 x10^3/uL (0.0-0.7); EOS % 5 % (0-3); HEMOGLOBIN 8.6 g/dL (13.0-17.5); LYMPH # 0.6 x10^3/uL (1.0-4.8); LYMPH % 23 % (24-48); MEAN CORPUSCULAR HEMOGLOBIN 28 pg (25-35); MEAN CORPUSCULAR HGB CONC 32 g/dL (31-37); MEAN CORPUSCULAR VOLUME 87 fL (79-100); MONO # 0.8 x10^3/uL (0.0-1.1); MONO % 29 % (0-9); NEUT # 1.1 x10^3/uL (1.8-7.7); NEUT % 42 % (31-73); PLATELET COUNT 358 x10^3/uL (140-400); RED CELL DISTRIBUTION WIDTH 19.5 % (11.5-14.5); WHITE BLOOD COUNT 2.6 x10^3/uL (4.0-11.0)
[2021-10-26 15:31] LABS: CALCIUM 8.2 mg/dL (8.5-10.1); GFR 73.9; POTASSIUM 4.8 mmol/L (3.5-5.1)
[2021-10-26 15:37] LABS: ALBUMIN 2.7 g/dL (3.4-5.0); ALBUMIN/GLOBULIN RATIO 0.7 (1.0-1.7); TOTAL BILIRUBIN 0.2 mg/dL (0.2-1.0); TOTAL PROTEIN 6.8 g/dL (6.4-8.2)
[2021-10-26 19:22] LABS: % BASOS 3 % (0-3); % EOS 6 % (0-5); % LYMPHS 24 % (24-48); % MONOS 27 % (0-10); % SEGS 40 % (35-66)
[2021-10-26 19:23] LABS: ANISOCYTOSIS SLIGHT; BIZZARE CELLS FEW; OVALOCYTES FEW; PLT ESTIMATE ADEQUATE (ADEQUATE); POIKILOCYTOSIS SLIGHT; SCHISTOCYTES OCC; TARGET CELLS OCC
[2021-10-26 19:24] LABS: TOXIC GRANULATION SLIGHT
== END ==
LOC: ONCLAB 12:56
PROVIDERS: ATTEND Internal Medicine Hematology & Oncology
DX: C34.12 Malignant neoplasm of upper lobe, left bronchus or lung (principal)
CPT/HCPCS: 36415; 80053; 85007; 85025; 87040

== ENCOUNTER → 2021-10-29 | Outpatient (CLI) | payer MEDICARE ==
[2021-10-05 15:00] VITALS: BP 120/69
[2021-10-29 13:49] LABS: CREATININE 0.9 mg/dL (0.7-1.3); GFR 83.4; POTASSIUM 4.2 mmol/L (3.5-5.1)
[2021-10-29 13:57] LABS: ALBUMIN 2.7 g/dL (3.4-5.0); ALBUMIN/GLOBULIN RATIO 0.7 (1.0-1.7); TOTAL BILIRUBIN 0.2 mg/dL (0.2-1.0); TOTAL PROTEIN 6.7 g/dL (6.4-8.2)
== END ==
LOC: ONCLAB 13:15
PROVIDERS: ATTEND Internal Medicine Hematology & Oncology
DX: E87.6 Hypokalemia (principal)
CPT/HCPCS: 36415; 80053

== ENCOUNTER → 2021-11-02 | Outpatient (CLI) | payer MEDICARE ==
[2021-10-05 15:00] VITALS: BP 120/69
[2021-11-02 11:39] LABS: BASO # 0.1 x10^3/uL (0.0-0.2); BASO % 1 % (0-3); EOS # 0.1 x10^3/uL (0.0-0.7); EOS % 1 % (0-3); HEMATOCRIT 28.1 % (39.0-53.0); HEMOGLOBIN 8.9 g/dL (13.0-17.5); LYMPH # 0.9 x10^3/uL (1.0-4.8); LYMPH % 12 % (24-48); MEAN CORPUSCULAR HEMOGLOBIN 28 pg (25-35); MEAN CORPUSCULAR HGB CONC 32 g/dL (31-37); MEAN CORPUSCULAR VOLUME 88 fL (79-100); MONO # 1.5 x10^3/uL (0.0-1.1); MONO % 20 % (0-9); NEUT # 4.9 x10^3/uL (1.8-7.7); NEUT % 66 % (31-73); PLATELET COUNT 462 x10^3/uL (140-400); RED BLOOD COUNT 3.21 x10^6/uL (4.30-5.70); RED CELL DISTRIBUTION WIDTH 20.6 % (11.5-14.5); WHITE BLOOD COUNT 7.5 x10^3/uL (4.0-11.0)
[2021-11-02 11:47] LABS: CALCIUM 8.2 mg/dL (8.5-10.1); CREATININE 0.9 mg/dL (0.7-1.3); GFR 83.4
[2021-11-02 11:54] LABS: ALBUMIN 2.5 g/dL (3.4-5.0); ALBUMIN/GLOBULIN RATIO 0.7 (1.0-1.7); TOTAL BILIRUBIN 0.2 mg/dL (0.2-1.0); TOTAL PROTEIN 6.3 g/dL (6.4-8.2)
[2021-11-02 12:57] LABS: % LYMPHS 13 % (24-48); % MONOS 17 % (0-10); % SEGS 70 % (35-66); PLT ESTIMATE ADEQUATE (ADEQUATE)
[2021-11-02 12:58] LABS: ANISOCYTOSIS SLIGHT
== END ==
LOC: ONCLAB 11:18
PROVIDERS: ATTEND Internal Medicine Hematology & Oncology
DX: C34.12 Malignant neoplasm of upper lobe, left bronchus or lung (principal)
CPT/HCPCS: 36415; 80053; 85007; 85025

== ENCOUNTER → 2021-11-09 | Outpatient (CLI) | payer MEDICARE ==
[2021-10-05 15:00] VITALS: BP 120/69
[2021-11-09 14:26] LABS: BASO % 1 % (0-3); EOS # 0.1 x10^3/uL (0.0-0.7); EOS % 5 % (0-3); HEMATOCRIT 25.8 % (39.0-53.0); HEMOGLOBIN 8.3 g/dL (13.0-17.5); LYMPH # 0.5 x10^3/uL (1.0-4.8); LYMPH % 20 % (24-48); MEAN CORPUSCULAR HEMOGLOBIN 28 pg (25-35); MEAN CORPUSCULAR HGB CONC 32 g/dL (31-37); MEAN CORPUSCULAR VOLUME 87 fL (79-100); MONO # 0.4 x10^3/uL (0.0-1.1); MONO % 18 % (0-9); NEUT # 1.3 x10^3/uL (1.8-7.7); NEUT % 56 % (31-73); PLATELET COUNT 176 x10^3/uL (140-400); RED BLOOD COUNT 2.98 x10^6/uL (4.30-5.70); RED CELL DISTRIBUTION WIDTH 20.8 % (11.5-14.5); WHITE BLOOD COUNT 2.3 x10^3/uL (4.0-11.0)
[2021-11-09 15:08] LABS: CALCIUM 8.8 mg/dL (8.5-10.1); CREATININE 0.8 mg/dL (0.7-1.3); GFR 95.6
[2021-11-09 15:15] LABS: ALBUMIN 2.9 g/dL (3.4-5.0); ALBUMIN/GLOBULIN RATIO 0.7 (1.0-1.7); TOTAL BILIRUBIN 0.3 mg/dL (0.2-1.0); TOTAL PROTEIN 6.8 g/dL (6.4-8.2)
[2021-11-09 18:24] LABS: % BANDS 7 % (0-9); % EOS 9 % (0-5); % LYMPHS 22 % (24-48); % SEGS 53 % (35-66); ANISOCYTOSIS MOD; PLT ESTIMATE ADEQUATE (ADEQUATE); POIKILOCYTOSIS SLIGHT
[2021-11-09 18:25] LABS: % METAS 0 % (0-0); % MONOS 9 % (0-10); % MYELOS 0 % (0-0)
[2021-11-09 18:26] LABS: OVALOCYTES FEW
[2021-11-09 18:27] LABS: BIZZARE CELLS PRESENT; TEAR DROP CELLS OCC
[2021-11-09 18:28] LABS: SCHISTOCYTES OCC; TARGET CELLS OCC
[2021-11-09 18:29] LABS: HYPOCHROMIA SLIGHT; TOXIC GRANULATION PRESENT
== END ==
LOC: ONCLAB 14:08
PROVIDERS: ATTEND Internal Medicine Hematology & Oncology
DX: C34.12 Malignant neoplasm of upper lobe, left bronchus or lung (principal)
CPT/HCPCS: 36415; 80053; 85007; 85025

== ENCOUNTER → 2021-11-18 | Outpatient (CLI) | payer MEDICARE ==
[2021-10-05 15:00] VITALS: BP 120/69
[2021-11-18 13:41] LABS: BASO % 0 % (0-3); EOS # 0.1 x10^3/uL (0.0-0.7); EOS % 1 % (0-3); HEMATOCRIT 27.2 % (39.0-53.0); HEMOGLOBIN 8.8 g/dL (13.0-17.5); LYMPH # 0.7 x10^3/uL (1.0-4.8); LYMPH % 10 % (24-48); MEAN CORPUSCULAR HEMOGLOBIN 28 pg (25-35); MEAN CORPUSCULAR HGB CONC 32 g/dL (31-37); MEAN CORPUSCULAR VOLUME 87 fL (79-100); MONO # 1.5 x10^3/uL (0.0-1.1); MONO % 21 % (0-9); NEUT # 4.9 x10^3/uL (1.8-7.7); NEUT % 67 % (31-73); PLATELET COUNT 215 x10^3/uL (140-400); RED BLOOD COUNT 3.12 x10^6/uL (4.30-5.70); RED CELL DISTRIBUTION WIDTH 21.7 % (11.5-14.5); WHITE BLOOD COUNT 7.2 x10^3/uL (4.0-11.0)
[2021-11-18 13:47] LABS: CALCIUM 8.6 mg/dL (8.5-10.1); CREATININE 0.9 mg/dL (0.7-1.3); GFR 83.4
[2021-11-18 13:52] LABS: ALBUMIN 2.9 g/dL (3.4-5.0); ALBUMIN/GLOBULIN RATIO 0.8 (1.0-1.7); TOTAL BILIRUBIN 0.1 mg/dL (0.2-1.0); TOTAL PROTEIN 6.7 g/dL (6.4-8.2)
[2021-11-18 14:08] LABS: % BANDS 9 % (0-9); % BASOS 1 % (0-3); % LYMPHS 10 % (24-48); % MONOS 18 % (0-10); % MYELOS 1 % (0-0); % SEGS 61 % (35-66); PLT ESTIMATE ADEQUATE (ADEQUATE)
[2021-11-18 14:11] LABS: ANISOCYTOSIS MOD; POIKILOCYTOSIS SLIGHT; POLYCHROMASIA PRESENT
[2021-11-18 14:12] LABS: BURR CELLS FEW; OVALOCYTES PRESENT; SCHISTOCYTES OCC
== END ==
LOC: ONCLAB 13:21
PROVIDERS: ATTEND Internal Medicine Hematology & Oncology
DX: C34.12 Malignant neoplasm of upper lobe, left bronchus or lung (principal)
CPT/HCPCS: 36415; 80053; 85007; 85025

== ENCOUNTER → 2021-11-25 | Outpatient (CLI) | payer MEDICARE ==
[2021-10-05 15:00] VITALS: BP 120/69
[2021-11-25 13:24] LABS: BASO % 1 % (0-3); EOS # 0.1 x10^3/uL (0.0-0.7); EOS % 2 % (0-3); HEMATOCRIT 29.9 % (39.0-53.0); HEMOGLOBIN 9.5 g/dL (13.0-17.5); LYMPH # 0.5 x10^3/uL (1.0-4.8); LYMPH % 9 % (24-48); MEAN CORPUSCULAR HEMOGLOBIN 28 pg (25-35); MEAN CORPUSCULAR HGB CONC 32 g/dL (31-37); MEAN CORPUSCULAR VOLUME 88 fL (79-100); MONO % 21 % (0-9); NEUT # 3.4 x10^3/uL (1.8-7.7); NEUT % 68 % (31-73); PLATELET COUNT 264 x10^3/uL (140-400); RED BLOOD COUNT 3.41 x10^6/uL (4.30-5.70); RED CELL DISTRIBUTION WIDTH 22.6 % (11.5-14.5)
[2021-11-25 13:37] LABS: CALCIUM 8.5 mg/dL (8.5-10.1); CREATININE 0.9 mg/dL (0.7-1.3); GFR 83.4; POTASSIUM 4.3 mmol/L (3.5-5.1)
[2021-11-25 13:43] LABS: ALBUMIN 2.9 g/dL (3.4-5.0); ALBUMIN/GLOBULIN RATIO 0.7 (1.0-1.7); TOTAL BILIRUBIN 0.3 mg/dL (0.2-1.0); TOTAL PROTEIN 6.9 g/dL (6.4-8.2)
== END ==
LOC: ONCLAB 13:11
PROVIDERS: ATTEND Internal Medicine Hematology & Oncology
DX: C34.12 Malignant neoplasm of upper lobe, left bronchus or lung (principal)
CPT/HCPCS: 36415; 80053; 85025

== ENCOUNTER → 2021-12-02 | Outpatient (CLI) | payer MEDICARE ==
[2021-10-05 15:00] VITALS: BP 120/69
[~2021-12-02] MED LIST changes: +HEPARIN PF 500 UNIT/5 ML DISP.SYRIN. IVP ONE; +IOHEXOL 240 MG/ML 50ML VIAL. PO ONE; +IOHEXOL 300 MG/ML 100ML VIAL. IV ONE
--- NOTE | 2021-12-02 15:48 | RAD ---
CT CHEST+ABD+PELVIS W dated 12/02/2021 12:20 PM Indication:Reason: squamous cell carcinoma of bronchus in lt upper lobe, kidney mass / Spl. Instructi ons: [id number] 75ml omni 240 50ml / History: Comparison: CT chest 10/02/2021, CT abdomen and pelvis 08/16/2021. Technique: Helical CT images were performed following oral contrast ingestion and using an infusion o f 75 mL Omnipaque 300. One or more of the following individualized dose reduction techniques were utilized for this examinat ion: 1. Automated exposure control 2. Adjustment of the mA and/or kV according to patient size 3. Use of iterative reconstruction technique Findings: CT chest: Irregular right lower lobe opacity has similar configuration, allowing for slight differenc e in slice positioning. There is suggestion of increased soft tissue nodularity along the lateral asp ect of this process, now measuring about 1.3 cm AP compared with roughly 0.9 cm previously. This area shows craniocaudal extent of about 1.2 cm compared with about 0.9 cm by my measurement previously. T he irregular left upper lobe abnormality appears similar to possibly slightly decreased in size. Mult iple smaller pulmonary nodules persist. These mostly appear similar. A peripheral nodule in the left lower lobe appears slightly smaller, measuring about 9 mm compared with 11 mm previously. A nodule in the right upper lobe (image 35 of axial series 2) appears smaller. Short axis transverse dimension i s now around 6 mm compared with about 8 mm previously. A posterior right lower lobe nodule measures a bout 11 mm across compared with about 11 mm previously. No new dominant mass or nodule is seen. The c entral airways do not appear to show complete obstruction. There is still some narrowing of left uppe r lobe bronchi. No enlarged axillary, mediastinal or hilar lymph nodes are seen. No new bone lesions are identified. CT abdomen and pelvis: Peripheral low attenuation lesion in the right lobe of liver has decreased in size. This now measures about 1.7 cm across compared with about 2.2 cm measured with the same method on the prior study. No new liver parenchymal abnormality is seen. The spleen appears normal. Both kid neys enhance with contrast. There is a small cyst in the left kidney. The right kidney again demonstr ates low-attenuation in the upper pole extending to the renal sinus. This appears decreased in size, although the margins are somewhat indistinct. Mediolateral dimension in the anterior kidney measures about 3.1 cm compared with about 4.9 cm on the prior study. No new renal parenchymal abnormality is s een. The adrenal glands are not enlarged. The pancreas appears normal. No retroperitoneal or mesenter ic adenopathy is seen. No other abdominal mass or inflammatory process is evident. Images through the pelvis show no abnormality of the distal ureters or bladder. No pelvic or inguinal adenopathy is seen. There is no apparent pelvic mass or inflammatory process. IMPRESSION: CT chest: Mixed changes are shown in pulmonary opacities. Many of the nodules as well as an irregular left upper lobe abnormality appears smaller, although there seems to be greater nodularity involving the right lower lobe abnormality. CT abdomen and pelvis: Regression of right renal lesion. Regression of liver lesion. No significant n ew findings. Electronically signed by: Tyler Patiño Jr., MD (12/02/2021 3:45 PM) [facility]
== END ==
LOC: CT 12:15
PROVIDERS: ATTEND Internal Medicine Hematology & Oncology
DX: C34.12 Malignant neoplasm of upper lobe, left bronchus or lung (principal); C64.1 Malignant neoplasm of right kidney, except renal pelvis; R91.8 Other nonspecific abnormal finding of lung field; K76.89 Other specified diseases of liver; N28.89 Other specified disorders of kidney and ureter
CPT/HCPCS: 71260; 74177; J1642; Q9966; Q9967

== ENCOUNTER → 2021-12-09 | Outpatient (CLI) | payer MEDICARE ==
[2021-10-05 15:00] VITALS: BP 120/69
[~2021-12-09] MED LIST changes: -HEPARIN PF 500 UNIT/5 ML DISP.SYRIN. IVP ONE; -IOHEXOL 240 MG/ML 50ML VIAL. PO ONE; -IOHEXOL 300 MG/ML 100ML VIAL. IV ONE
[2021-12-09 13:52] LABS: BASO % 1 % (0-3); EOS # 0.2 x10^3/uL (0.0-0.7); EOS % 7 % (0-3); HEMATOCRIT 27.4 % (39.0-53.0); HEMOGLOBIN 9.1 g/dL (13.0-17.5); LYMPH # 0.7 x10^3/uL (1.0-4.8); LYMPH % 24 % (24-48); MEAN CORPUSCULAR HEMOGLOBIN 29 pg (25-35); MEAN CORPUSCULAR HGB CONC 33 g/dL (31-37); MEAN CORPUSCULAR VOLUME 86 fL (79-100); MONO # 1.1 x10^3/uL (0.0-1.1); MONO % 39 % (0-9); NEUT # 0.8 x10^3/uL (1.8-7.7); NEUT % 30 % (31-73); PLATELET COUNT 356 x10^3/uL (140-400); RED BLOOD COUNT 3.18 x10^6/uL (4.30-5.70); RED CELL DISTRIBUTION WIDTH 22.1 % (11.5-14.5); WHITE BLOOD COUNT 2.7 x10^3/uL (4.0-11.0)
[2021-12-09 14:03] LABS: CALCIUM 8.5 mg/dL (8.5-10.1); CREATININE 0.9 mg/dL (0.7-1.3); GFR 83.4; POTASSIUM 4.1 mmol/L (3.5-5.1)
[2021-12-09 14:09] LABS: ALBUMIN 2.8 g/dL (3.4-5.0); ALBUMIN/GLOBULIN RATIO 0.7 (1.0-1.7); TOTAL BILIRUBIN 0.3 mg/dL (0.2-1.0); TOTAL PROTEIN 6.6 g/dL (6.4-8.2)
[2021-12-09 14:50] LABS: % BANDS 1 % (0-9); % EOS 6 % (0-5); % LYMPHS 22 % (24-48); % MONOS 32 % (0-10); % MYELOS 1 % (0-0); % SEGS 38 % (35-66); ANISOCYTOSIS MOD; HYPOCHROMIA SLIGHT; PLT ESTIMATE ADEQUATE (ADEQUATE)
[2021-12-09 14:51] LABS: BURR CELLS PRESENT
== END ==
LOC: ONCLAB 13:01
PROVIDERS: ATTEND Internal Medicine Hematology & Oncology
DX: C34.12 Malignant neoplasm of upper lobe, left bronchus or lung (principal)
CPT/HCPCS: 36415; 80053; 85007; 85025

== ENCOUNTER → 2021-12-23 | Outpatient (CLI) | payer MEDICARE ==
[2021-10-05 15:00] VITALS: BP 120/69
[2021-12-23 14:08] LABS: BASO % 0 % (0-3); EOS # 0.1 x10^3/uL (0.0-0.7); EOS % 2 % (0-3); HEMATOCRIT 31.3 % (39.0-53.0); HEMOGLOBIN 10.4 g/dL (13.0-17.5); LYMPH # 0.6 x10^3/uL (1.0-4.8); LYMPH % 11 % (24-48); MEAN CORPUSCULAR HEMOGLOBIN 28 pg (25-35); MEAN CORPUSCULAR HGB CONC 33 g/dL (31-37); MEAN CORPUSCULAR VOLUME 85 fL (79-100); MONO # 0.9 x10^3/uL (0.0-1.1); MONO % 16 % (0-9); NEUT # 4.3 x10^3/uL (1.8-7.7); NEUT % 72 % (31-73); PLATELET COUNT 359 x10^3/uL (140-400); RED BLOOD COUNT 3.67 x10^6/uL (4.30-5.70); RED CELL DISTRIBUTION WIDTH 21.8 % (11.5-14.5); WHITE BLOOD COUNT 6.1 x10^3/uL (4.0-11.0)
[2021-12-23 14:23] LABS: CALCIUM 8.9 mg/dL (8.5-10.1); CREATININE 0.9 mg/dL (0.7-1.3); GFR 83.4; POTASSIUM 4.1 mmol/L (3.5-5.1)
[2021-12-23 14:28] LABS: ALBUMIN 3.2 g/dL (3.4-5.0); ALBUMIN/GLOBULIN RATIO 0.7 (1.0-1.7); TOTAL BILIRUBIN 0.3 mg/dL (0.2-1.0); TOTAL PROTEIN 7.6 g/dL (6.4-8.2)
[2021-12-23 15:09] LABS: ANISOCYTOSIS SLIGHT; PLT ESTIMATE ADEQUATE (ADEQUATE)
== END ==
LOC: ONCLAB 13:42
PROVIDERS: ATTEND Internal Medicine Hematology & Oncology
DX: C34.12 Malignant neoplasm of upper lobe, left bronchus or lung (principal)
CPT/HCPCS: 36415; 80053; 85025

== ENCOUNTER → 2021-12-31 | Outpatient (CLI) | payer MEDICARE ==
[2021-10-05 15:00] VITALS: BP 120/69
[2021-12-31 13:46] LABS: BASO % 1 % (0-3); EOS # 0.3 x10^3/uL (0.0-0.7); EOS % 5 % (0-3); HEMATOCRIT 30.2 % (39.0-53.0); HEMOGLOBIN 9.9 g/dL (13.0-17.5); LYMPH # 0.7 x10^3/uL (1.0-4.8); LYMPH % 11 % (24-48); MEAN CORPUSCULAR HEMOGLOBIN 28 pg (25-35); MEAN CORPUSCULAR HGB CONC 33 g/dL (31-37); MEAN CORPUSCULAR VOLUME 85 fL (79-100); MONO % 16 % (0-9); NEUT # 4.3 x10^3/uL (1.8-7.7); NEUT % 68 % (31-73); PLATELET COUNT 357 x10^3/uL (140-400); RED BLOOD COUNT 3.57 x10^6/uL (4.30-5.70); WHITE BLOOD COUNT 6.4 x10^3/uL (4.0-11.0)
[2021-12-31 13:51] LABS: GFR 73.9; POTASSIUM 4.4 mmol/L (3.5-5.1)
[2021-12-31 14:05] LABS: ALBUMIN 2.8 g/dL (3.4-5.0); ALBUMIN/GLOBULIN RATIO 0.6 (1.0-1.7); TOTAL BILIRUBIN 0.3 mg/dL (0.2-1.0); TOTAL PROTEIN 7.4 g/dL (6.4-8.2)
[2021-12-31 19:49] LABS: PLT ESTIMATE ADEQUATE (ADEQUATE)
[2021-12-31 19:50] LABS: ANISOCYTOSIS MOD; OVALOCYTES FEW; POLYCHROMASIA SLIGHT
== END ==
LOC: ONCLAB 13:15
PROVIDERS: ATTEND Internal Medicine Hematology & Oncology
DX: T80.212A Local infection due to central venous catheter, initial encounter (principal)
CPT/HCPCS: 36415; 80053; 85025; 87040; 87075

== ENCOUNTER 2022-01-05 08:37 | Outpatient (CLI) | payer MEDICARE ==
[~2022-01-05] VITALS: Ht 175.3 cm; Wt 55.0 kg
[2022-01-05] MEDS ORDERED: LIDOCAINE 1%/EPI 1:100,000 20 ML VIAL. ONE (09:08)
[2022-01-05 09:24] VITALS: BP 119/61
[2022-01-05] MEDS ORDERED: LIDOCAINE 1%/EPI 1:100,000 20 ML VIAL. INJ ONE (10:00)
[2022-01-05 10:15] VITALS: BP 128/65
[2022-01-05 10:30] VITALS: BP 124/65
[2022-01-05 10:45] VITALS: BP 126/63
--- NOTE | 2022-01-05 11:00 | NUR ---
Discharge Note: YASMIN DUNNE Discharge instructions and discharge home medications reviewed with Family Member and a copy given. All questions have been answered and understanding verbalized. The following instructions and handouts were given: incision site care Discontinued lines and drains: portacath removed, dressing dry and intact Patient discharged to Home or Self Care with Family Member via Wheelchair GONZALEZ RODRIGUEZ
--- NOTE | 2022-01-06 10:02 | RAD ---
Removal right internal jugular port 01/05/2022 INDICATION: Port is a rotatory skin COMPARISON STUDY: None Consent: The procedure was explained in its entirety to the patient or the patients designated repres entative by a member of the treatment team, including a discussion of the risks, benefits and commonl y accepted alternatives to the procedure, as well as the expected consequences of no therapy whatsoev er. Discussion of the risks included, but was not limited to, those that are most frequent and thos e that are rare but possibly severe or life-threatening, as well as the possibility of unforeseen com plications. Procedural detail: Imaging of the right internal jugular port was performed demonstrating normal appe arance under fluoroscopy. The right chest prepped and draped using sterile barrier technique. 1% lido sury was administered for local anesthesia. A small incision was made overlying the port reservoir. The port catheter removed intact. The wound was closed in layers using 4-0 Vicryl suture. Sterile chris ssings were applied. No immediate complications were identified. Complete removal was confirmed with fluoroscopy. Total fluoroscopy time 0.2 minutes Dose area product 0.2 Kessler centimeter squared Impression: Removal of right internal jugular power port Electronically signed by: João Hua MD (01/06/2022 9:59 AM) [id number]
== END 2022-01-05 11:00 | disposition home or self-care (01) ==
LOC: INTRAD 08:37
PROVIDERS: ATTEND Internal Medicine Hematology & Oncology
DX: Z45.2 Encounter for adjustment and management of vascular access device (principal); I25.10 Atherosclerotic heart disease of native coronary artery without angina pectoris; J44.9 Chronic obstructive pulmonary disease, unspecified; M19.90 Unspecified osteoarthritis, unspecified site; F17.210 Nicotine dependence, cigarettes, uncomplicated; Z86.73 Personal history of transient ischemic attack (TIA), and cerebral infarction without residual deficits; Z79.899 Other long term (current) drug therapy; Z98.890 Other specified postprocedural states
CPT/HCPCS: 36590; 77001; J3490